=== PATIENT | female | born 1935 | race Caucasian/White ===

== ENCOUNTER → 2016-12-04 | Outpatient (CLI) | payer MEDICARE, OTHER ==
[~2016-12-04] MED LIST: AMLO5TAB2 PO; ASPI-110 PO; ATOR1TAB18 PO; DOCU100C PO; FERR325T PO; HYDR-3516 PO; LORA10 PO; LORA10TA PO; MAGN400T2 PO; METO25TA3 PO; MISC-163; PARO20TA2 PO; SODI1TAB PO; TOLT1TAB17 PO; VALS1TAB64 PO; WHEEMIS3; ZETI10TA5 PO
[2016-12-04 16:37] LABS: ANION GAP 11 MEQ/L (5-15); AST (GOT) 20 U/L (15-37); BICARBONATE 24.4 MEQ/L (21.0-32.0); BLOOD UREA NITROGEN 19 MG/DL (7-18); CHLORIDE 101 MEQ/L (98-107); GLOMERULAR FILTRATION RATE 44 ML/MIN (>89); GLUCOSE,FASTING 97 MG/DL (74-99); POTASSIUM 3.6 MEQ/L (3.5-5.1); SODIUM (NA) 136 MEQ/L (136-145)
[2016-12-04 16:46] LABS: ALKALINE PHOSPHATASE 125 U/L (45-117); ALT (GPT) 18 U/L (10-53); HDL CHOLESTEROL 74.6 MG/DL (40.0-60.0); LDL CHOLESTEROL 64 MG/DL (0-99); TOTAL BILIRUBIN ADULT 0.6 MG/DL (0.2-1.0)
== END ==
LOC: PLAB 12:18
PROVIDERS: ATTEND Family Medicine
DX: E78.2 Mixed hyperlipidemia (principal)
CPT/HCPCS: 36415; 80053; 80061

== ENCOUNTER → 2017-01-09 | Outpatient (CLI) | payer MEDICARE, OTHER ==
[2017-01-09 16:50] LABS: RHEUMATOID FACTOR TRIGGER LESS THAN 10.0 IU/ML (0.0-14.9)
[2017-01-10 14:39] LABS: ANA SCREEN POS (NEG)
== END ==
LOC: CLAB 15:01
PROVIDERS: ATTEND Family Medicine
DX: M12.9 Arthropathy, unspecified (principal); M79.1 Myalgia
CPT/HCPCS: 36415; 84550; 85652; 86038; 86039; 86430

== ENCOUNTER 2017-01-17 12:59 | Observation (INO) | payer MEDICARE, OTHER ==
[~2017-01-17] VITALS: Ht 157.5 cm; Wt 47.5 kg
[~2017-01-17 12:59] MED LIST changes: +BUPIVACAINE HCL PF 0.5% 30 ML VIAL NB ONE; -DOCU100C PO; -FERR325T PO; -HYDR-3516 PO; +LACTATED RINGER'S 1000 ML INJ 1,000 ML IV ONE; -LORA10TA PO; -MISC-163; +PROPOFOL 200 MG/20 ML AMP IV ONE; -WHEEMIS3
[2017-01-17] MEDS ORDERED: FERR325T PO (14:22)
[2017-01-17] MEDS ORDERED: DOCU100C PO (14:22)
[2017-01-17] MEDS ORDERED: LORA10TA PO (14:22)
[2017-01-17] MEDS ORDERED: METO25TA3 PO (14:22)
[2017-01-17 14:49] VITALS: BP 183/80; PULSE 64; RESP 18; TEMP 98.6; O2SAT 96
[2017-01-17] MEDS ORDERED: BUPIVACAINE/EPINEPHRINE 0.25% PF 30 ML VIAL ONE (14:54)
[2017-01-17] MEDS ORDERED: GENTAMICIN SULFATE 80 MG/2 ML VIAL ONE (14:54)
[2017-01-17 15:37] LABS: HEMATOCRIT 36.8 % (35.0-46.0); MEAN CELL VOLUME 84.5 FL (80.0-100.0); MEAN CORPUSCULAR HEMOGLOBIN 28.4 PG (27.0-34.0); MEAN CORPUSCULAR HGB CONC 33.6 % (32.0-36.0); PLATELET COUNT 401 TH/MM3 (150-450); RED BLOOD COUNT 4.36 MIL/MM3 (4.00-5.30); RED CELL DISTRIBUTION WIDTH 15.9 % (11.6-17.2); WHITE BLOOD COUNT 14.5 TH/MM3 (4.0-11.0)
[2017-01-17 15:44] LABS: HEMO FLAGS AUTO DIFF
[2017-01-17] MEDS ORDERED: DEXAMETHASONE SOD PHOS 4 MG/ML VIAL ONE (15:58)
[2017-01-17] MEDS ORDERED: fentaNYL CITRATE 250 MCG/5 ML AMP ONE (15:58)
[2017-01-17] MEDS ORDERED: ONDANSETRON HCL 4 MG/2 ML VIAL ONE (15:58)
[2017-01-17] MEDS ORDERED: MIDAZOLAM HCL 2 MG/2 ML VIAL ONE (15:58)
[2017-01-17] MEDS ORDERED: FAMOTIDINE 20 MG/2 ML VIAL ONE (16:14)
[2017-01-17] MEDS ORDERED: CLINDAMYCIN PHOS 600 MG/4 ML VIAL IM/IV ONE (16:40)
[2017-01-17 16:45] LABS: CRENATED RBCS 1+ (NORMAL); HYPERSEGMENTED POLYS 2+ (NORMAL); KERATOCYTES 1+ (NORMAL); METAMYELOCYTES 1 % (0-1); NEUTROPHIL # MANUAL DIFF 12.2 TH/MM3 (1.8-7.7); OVALOCYTES 1+ (NORMAL); POLYS (SEG NEUTROPHILS) 83 % (16-70); WBC DIFF SAMPLE 100
[2017-01-17 16:46] LABS: PLATELET ESTIMATE SMEAR HIGH (NORMAL); PLATELET MORPHOLOGY NORMAL (NORMAL); SCAN/DIFF FINAL DIFF MANUAL
[2017-01-17] MEDS ORDERED: ACETAMINOPHEN/HYDROcodone 325 MG/5 MG TAB PO PRN ×2 (18:00)
[2017-01-17] MEDS ORDERED: DOCUSATE SODIUM 100 MG CAP PO PRN (18:00)
[2017-01-17] MEDS ORDERED: MORPHINE SULFATE 4 MG/ML INJ IV PUSH PRN (18:00)
[2017-01-17] MEDS ORDERED: KETOROLAC TROMETHAMINE 30 MG/ML (IVP) VIAL IVP ONE (18:00)
[2017-01-17] MEDS ORDERED: SODIUM CHLORIDE 0.9% FLUSH 5 ML FLUSH IVF PRN (18:00)
[2017-01-17] MEDS ORDERED: DO NOT ADM ANY ANTICOAGULANT DRUGS XX PRN (18:05)
--- NOTE | 2017-01-17 18:06 | HHI.FF ---
Face to Face Verification Diagnosis: (1) Status post open reduction with internal fixation of fracture (2) Closed fracture of right patella Physical Therapy Gait training Canvas Knee Splint: At all times Right LE Range of Motion: No ROM Left LE Weight Bearing: WB as tolerated Nursing Nursing: Dressing changes Dressing Changes: Daily dressing change, Coverderm/Primapore Additional Instructions Do not allow right knee to bend. Knee immobilizer is to be replaced on knee after dressing changes. Dressing changes to start after patient is seen in the office. Remove steristrips on postop day 14. I have seen patient Keke Patricia on 01/17/17. My clinical findings support the need for the requested home health care services because: Ltd mobility - disease progression Limited ability to care for self High risk of falls I certify that my clinical findings support that this patient is homebound because: Post-op weakness Unsteady gait/balance Unsafe to leave home unassisted Sina Cross MD (Charles) Jan 17, 2017 18:06
[2017-01-17] MEDS ORDERED: HYDR-3516 PO (18:09)
[2017-01-17] MEDS ORDERED: MISC-163 (18:09)
[2017-01-17] MEDS ORDERED: WHEEMIS3 (18:26)
--- NOTE | 2017-01-17 18:29 | RADRPT ---
EXAM DATE/TIME: 01/17/2017 17:41 [facility] COMPARISON: No previous studies available for comparison. INDICATIONS : ORIF Rt Patella. MEDICAL HISTORY : None. SURGICAL HISTORY : None. ENCOUNTER: Subsequent ACUITY: 1 day PAIN SCORE: Non-responsive. LOCATION: Right patella FINDINGS: Two films from the OR have been obtained. Two screws are seen through the patella. They successfully reduce the mid patellar fracture. The hardware is well placed. CONCLUSION: Successful ORIF. Stanley Kyle MD on January 17, 2017 at 18:22 Board Certified Radiologist. This report was verified electronically.
[2017-01-17 19:38] VITALS: O2SAT 97
[2017-01-17 20:00] VITALS: BP 140/65; PULSE 65; RESP 18; TEMP 97.3; O2SAT 99
[2017-01-17] MEDS ORDERED: CLINDAMYCIN INJ 600 MG in SODIUM CHLORIDE 0.9% INJ 100 ML IV ONE (20:00)
[2017-01-17] MEDS: MAGNESIUM OXIDE 400 MG TAB PO SCH (21:00)
[2017-01-17] MEDS ORDERED: ATORVASTATIN 80 MG TAB PO SCH (21:00)
[2017-01-17] MEDS: METOPROLOL TARTRATE 25 MG TAB PO SCH (21:00)
[2017-01-17] MEDS: SODIUM CHLORIDE 0.9% FLUSH 5 ML FLUSH IVF SCH (21:00)
[2017-01-18 00:24] VITALS: BP 112/50; PULSE 68; RESP 18; TEMP 96.5; O2SAT 98
[2017-01-18 05:12] VITALS: BP 111/71; PULSE 66; RESP 18; TEMP 97.8; O2SAT 97
[2017-01-18 07:33] VITALS: BP 122/58; PULSE 67; RESP 16; TEMP 97; O2SAT 98
[2017-01-18] MEDS ORDERED: PARoxetine HCL 20 MG TAB PO SCH (09:00)
[2017-01-18] MEDS ORDERED: LORATADINE 10 MG TAB PO SCH (09:00)
[2017-01-18] MEDS ORDERED: FERROUS SULFATE 325 MG (65 MG ELEMENTAL IRON) TAB PO SCH (09:00)
[2017-01-18] MEDS ORDERED: VALSARTAN 80 MG TAB PO SCH (09:00)
[2017-01-18] MEDS ORDERED: SODIUM CHLORIDE 1 GRAM TAB PO SCH (09:00)
[2017-01-18] MEDS ORDERED: ASPIRIN EC 81 MG TABEC PO SCH (09:00)
[2017-01-18] MEDS ORDERED: amLODIPine BESYLATE 5 MG TAB PO SCH (09:00)
[2017-01-18] MEDS ORDERED: EZETIMIBE 10 MG TAB PO SCH (09:00)
[2017-01-18] MEDS: SODIUM CHLORIDE 0.9% FLUSH 5 ML FLUSH IVF SCH (09:29)
[2017-01-18] MEDS: METOPROLOL TARTRATE 25 MG TAB PO SCH (09:31)
[2017-01-18] MEDS: MAGNESIUM OXIDE 400 MG TAB PO SCH (09:33)
--- NOTE | 2017-01-18 10:58 | PD.ORT.PN ---
Subjective Post Op Day #: 1 Subjective Remarks Patient seen for Dr. Cross- status post ORIF right patella. Patient has been walking with walker and able to move about in bed and lift left leg without difficulty. Objective Vitals Vital Signs Date Time Temp Pulse Resp B/P Pulse Ox O2 Delivery O2 Flow Rate FiO2 01/18/17 07:33 97.0 67 16 122/58 98 01/18/17 05:12 97.8 66 18 111/71 97 01/18/17 00:24 96.5 68 18 112/50 98 01/17/17 20:00 97.3 65 18 140/65 99 01/17/17 19:38 97 Nasal Cannula 2.00 01/17/17 18:30 68 20 131/76 97 Nasal Cannula 2 01/17/17 18:15 72 15 123/83 97 Nasal Cannula 2 01/17/17 18:04 98.7 72 14 148/62 95 Nasal Cannula 4 01/17/17 14:49 98.6 64 18 183/80 96 I/O 01/17/17 01/17/17 01/17/17 01/18/17 01/18/17 01/18/17 07:00 15:00 23:00 07:00 15:00 23:00 Intake Total 1620 ml 480 ml Output Total 525 ml 700 ml Balance 1095 ml -220 ml Intake Oral 520 ml 480 ml Other 1100 ml Output Urine Total 500 ml 700 ml Estimated Blood Loss 25 ml # Bowel Movements 0 0 Result Diagram: 01/17/17 1517 Imaging Last Impressions Knee X-Ray 01/17/17 0000 Signed Impressions: Service Date/Time: Tuesday, January 17, 2017 17:41 - CONCLUSION: Successful ORIF. Stanley Kyle MD Objective Remarks Patient in canvas knee splint- opened and adjusted today. Dressing dry and intact. Able to lift thigh in splint. Moving toes well and neuro exam distally is normal. Assessment & Plan Assessment and Plan Patient is doing very well. She plans to go home and she and are planning discharge later today. She has follow up with Dr. Cross. Chintan Trujillo MD Jan 18, 2017 10:58
[2017-01-18 11:16] VITALS: BP 128/62; PULSE 70; RESP 16; TEMP 97.9; O2SAT 95
--- NOTE | 2017-01-18 19:05 | MP ---
cc: Dre KERR. DATE OF SURGERY 01/17/2017 PREOPERATIVE DIAGNOSIS Acute closed transverse fracture, displaced, right patella. POSTOPERATIVE DIAGNOSIS Acute closed transverse fracture, displaced, right patella. OPERATION PERFORMED Open reduction internal fixation right patella fracture. SURGEON Casey Kerr MD ANESTHESIA General by LMA with supplemental femoral nerve block regional INDICATIONS AND FINDINGS This 81-year-old woman had an accidental fall directly onto her patella. She was seen in my office and admitted for open reduction and internal fixation. Physical findings showed a displaced fracture palpable in the patella with a large effusion. The skin was intact. X-rays showed a transverse fracture of the patella with some displacement. Operative findings were consistent with the radiographic findings. PROCEDURE IN DETAIL The patient had a femoral nerve block. She was brought to the operating room and a general anesthetic was administered. She was placed in the supine position on the operating table with a small bolster under the right hip. Right hip was then prepped with alcohol, Hibiclens and Chloraprep and draped in the usual manner with the knee draped free. She received prophylactic antibiotics in the form of clindamycin. An appropriate time-out procedure was carried out. An anterior incision was then made from about 1 cm proximal to the mid portion of the patella down to about 1 cm distal to the patella. The incision was deepened through the subcutaneous tissues down to the patella. The patella fracture was identified. This was opened and irrigated. The blood was irrigated from the joint. A reduction was then carried out and held with reduction clamps. C-arm fluoroscopy verified anatomic reduction. Two pins were then drilled from proximal to distal across the fracture site. C-arm fluoroscopy verified good position of these pins. These were then sized and appropriate size 4.0 mm cannulated screws were then placed over the pins and screwed into place. This showed anatomic reduction. #5 Tycron was then passed above these and through the quadriceps tendon in [id number] fashion down to the patella tendon in [id number] fashion. This was tightened tightly and tied. A secondary suture of the same material was then carried as a cerclage somewhat lateral to this. This was also tied tightly. C-arm fluoroscopy verified persistence of the anatomic reduction. The capsular structures were repaired with 0 Vicryl interrupted [id number] sutures. The subcutaneous tissues were closed with 2-0 Vicryl interrupted simple sutures with buried knots. The skin was closed with continuous subcuticular closure of 4-0 Monocryl. The wound was dressed with Steri-Strips followed by dry dressing, sterile Sof-Rol, Bridger bandage and a knee immobilizer. The patient was transferred from the operating room to the recovery room in satisfactory condition having tolerated the procedure well. Counts were correct. Specimens none. Estimated blood loss (primarily from the intra-articular effusion) approximately 100 mL. MD GUILLERMINA Reza/ /6:13 PM /6:59 PM
== END 2017-01-18 16:20 | disposition home health service (06) ==
LOC: HSDC 12:59 → HSDI 18:00 → N06B 18:55
PROVIDERS: ADMIT Orthopaedic Surgery; ATTEND Orthopaedic Surgery
DX: S82.034A Nondisplaced transverse fracture of right patella, initial encounter for closed fracture (principal); I10 Essential (primary) hypertension; E78.5 Hyperlipidemia, unspecified; J44.9 Chronic obstructive pulmonary disease, unspecified; W19.XXXA Unspecified fall, initial encounter
CPT/HCPCS: 01392; 27524; 64447; 73560; 76000; 85007; 85027; 97161; C1713; G0378; G8987; G8988; J1100; J1580; J2250; J2405; J3010; J7120; L1830

== ENCOUNTER → 2017-06-11 | Outpatient (CLI) | payer MEDICARE, OTHER ==
[~2017-06-11] MED LIST changes: -BUPIVACAINE HCL PF 0.5% 30 ML VIAL NB ONE; +DOCU100C PO; +FERR325T PO; +HYDR-3516 PO; -LACTATED RINGER'S 1000 ML INJ 1,000 ML IV ONE; -LORA10 PO; +LORA10TA PO; +MISC-163; -PROPOFOL 200 MG/20 ML AMP IV ONE; -TOLT1TAB17 PO; +WHEEMIS3
--- NOTE | 2017-06-17 09:28 | RSPPFT ---
DATE OF PROCEDURE: 06/11/17 COMMENTS: Spirometry with FVC of 2.0 predicted 2.4, FEV1 of 1.4 predicted 1.7, FEV1/FVC ratio 68% predicted 81%. No significant changes noted post-bronchodilator acutely. Lung volumes are basically within the predicted range. DLCO is 42% of predicted. IMPRESSION: On the basis of the above, patient has an obstructive lung defect with no response to acutely inhaled bronchodilator. DLCO is decreased.
== END ==
LOC: HRSP 13:07
PROVIDERS: ATTEND Internal Medicine Pulmonary Disease
DX: J44.9 Chronic obstructive pulmonary disease, unspecified (principal)
CPT/HCPCS: 94060; 94620; 94726; 94729

== ENCOUNTER → 2017-08-06 | Outpatient (CLI) | payer MEDICARE, OTHER ==
[~2017-08-06] MED LIST changes: +CELE1CAP6 PO; +CRANCAP2 PO; +FERR325T8 PO; +PREV30CA11 PO; +REST15CA PO; +TOLT1CAP4 PO
[2017-08-06 13:35] LABS: AUTOMATED NEUTROPHIL # 4.9 TH/MM3 (1.8-7.7); BASOPHIL % 0.5 % (0.0-2.0); EOSINOPHIL % 0.2 % (0.0-4.0); HEMATOCRIT 40.7 % (35.0-46.0); HEMO FLAGS DIFF FINAL; LYMPH % 28.2 % (9.0-44.0); LYMPHOCYTE # 2.2 TH/MM3 (1.0-4.8); MEAN CELL VOLUME 91.6 FL (80.0-100.0); MEAN CORPUSCULAR HEMOGLOBIN 30.4 PG (27.0-34.0); MEAN CORPUSCULAR HGB CONC 33.2 % (32.0-36.0); MONO % 7.1 % (0.0-8.0); PLATELET COUNT 217 TH/MM3 (150-450); RED BLOOD COUNT 4.45 MIL/MM3 (4.00-5.30); RED CELL DISTRIBUTION WIDTH 15.4 % (11.6-17.2); WHITE BLOOD COUNT 7.7 TH/MM3 (4.0-11.0)
[2017-08-06 13:38] LABS: BLOOD, URINE NEG (NEG); COMMENT (UR) CULT NOT INDICATED; CULTURE IF INDICATED CULT NOT INDICATED; GLUCOSE,URINE NEG (NEG); KETONE, URINE NEG (NEG); NITRITE,URINE NEG (NEG); PH, URINE 7.5 (5.0-8.5); SQUAMOUS EPITHELIAL CELL URINE <1 /hpf (0-5); URINE COLOR LIGHT-YELLOW (YELLW/STRAW)
[2017-08-06 13:48] LABS: APTT (PATIENT) 25.5 SEC (24.3-30.1); INTERNATIONAL NORMALIZED RATIO 0.9 RATIO
[2017-08-06 14:00] LABS: ANION GAP 10 MEQ/L (5-15); AST (GOT) 24 U/L (15-37); BICARBONATE 26.2 MEQ/L (21.0-32.0); BLOOD UREA NITROGEN 23 MG/DL (7-18); CHLORIDE 103 MEQ/L (98-107); GLOMERULAR FILTRATION RATE 46 ML/MIN (>89); GLUCOSE,FASTING 107 MG/DL (74-99); POTASSIUM 4.2 MEQ/L (3.5-5.1); SODIUM (NA) 139 MEQ/L (136-145)
[2017-08-06 14:03] LABS: ALKALINE PHOSPHATASE 124 U/L (45-117); ALT (GPT) 20 U/L (10-53); TOTAL BILIRUBIN ADULT 0.7 MG/DL (0.2-1.0)
--- NOTE | 2017-08-06 16:29 | RADRPT ---
EXAM DATE/TIME: 08/06/2017 13:31 [facility] COMPARISON: No previous studies available for comparison. INDICATIONS : Evaluate for pneumonia, pneumothorax, or communicable disease. MEDICAL HISTORY : Chronic obstructive pulmonary disease. Hypercholesterolemia. Hypertension. Emphysema. Irritable bowel syndrome. Depression. Anxiety. Measles. SURGICAL HISTORY : Tonsillectomy. Appendectomy. Tubal ligation. Bilateral eye surgery. Adenoidectomy. Bilateral carpal t unnel surgery. Left foot neuroma removed. ENCOUNTER: Initial ACUITY: 1 day PAIN SCORE: 0/10 LOCATION: Chest FINDINGS: The heart and mediastinal structures are normal. The pulmonary vascularity pattern is normal. The l ungs are clear. Scattered granulomatous changes are noted predominantly on the right. Degenerative changes and scoliosis of the thoracolumbar spine are noted. CONCLUSION: 1. No acute cardiopulmonary disease. 2. Scattered granulomatous changes predominantly on the right. 3. Degenerative changes and scoliosis of the thoracolumbar spine. Eh Sharp MD on August 06, 2017 at 16:21 Board Certified Radiologist. This report was verified electronically.
--- NOTE | 2017-08-07 13:01 | EKG ---
Date Performed: 08/06/2017 Time Performed: 11:59:11 PTAGE: 81 years EKG: Sinus rhythm NORMAL ECG NO PREVIOUS TRACING DOCTOR: Brigido Santiago Interpretating Date/Time 08/07/2017 12:51:57
== END ==
LOC: CPRE 11:05
PROVIDERS: ATTEND Colon & Rectal Surgery
DX: Z01.810 Encounter for preprocedural cardiovascular examination (principal); Z01.812 Encounter for preprocedural laboratory examination; K62.3 Rectal prolapse; Z79.01 Long term (current) use of anticoagulants
CPT/HCPCS: 36415; 71020; 80053; 81001; 85025; 85610; 85730; 93005

== ENCOUNTER 2017-08-13 13:00 | Inpatient (IN) | payer MEDICARE, OTHER ==
[~2017-08-13] VITALS: Ht 158.8 cm; Wt 52.0 kg
[~2017-08-13 13:00] MED LIST changes: -FERR325T PO; -HYDR-3516 PO; +LACTATED RINGER'S 1000 ML INJ 1,000 ML IV ONE; -LORA10TA PO; +MIDAZOLAM HCL 2 MG/2 ML VIAL IV ONE; -MISC-163; +MORPHINE SULFATE 4 MG/ML INJ IV ONE; +PHENYLEPHRINE HCL 10 MG/ML VIAL IV ONE; +PROPOFOL 200 MG/20 ML AMP IV ONE; -WHEEMIS3; +ePHEDrine/NS 25 MG/5 ML SYR IV ONE
[2017-08-13] MEDS ORDERED: SODIUM CHLORID 0.9% 500 ML IV PRN (14:00)
[2017-08-13] MEDS ORDERED: LACTATED RINGER'S 1000 ML IV PRN (14:00)
[2017-08-13] MEDS ORDERED: CHLORHEXIDINE GLUCONATE 2 % 1 PACK (2 CLOTHS) TOPICAL PRN (14:00)
[2017-08-13] MEDS ORDERED: ceFAZolin 1,000 MG/NS 100 ML IV SCH ×2 (14:00)
[2017-08-13] MEDS ORDERED: POVIDONE IODINE 5% (ANTISEPSIS KIT) 4 APPLICATIONS EACH NARE PRN (14:00)
[2017-08-13] MEDS ORDERED: METOPROLOL TARTRATE 25 MG TAB PO PRN (14:00)
[2017-08-13] MEDS ORDERED: INSULIN HUMAN REGULAR 1,000 UNITS/10 ML VIAL SQ PRN (14:00)
[2017-08-13] MEDS ORDERED: DEXT 5%-NACL 0.9% 1000 ML INJ 1,000 ML IV SCH (14:00)
[2017-08-13] MEDS ORDERED: ALVIMOPAN 12 MG CAPSULE - On Call PO SCH (14:00)
[2017-08-13] MEDS ORDERED: METRONIDAZOLE 500 MG/100 ML ISONTONIC SOLN IV SCH (14:15)
[2017-08-13] MEDS ORDERED: BUPIVACAINE/EPINEPHRINE 0.5% 50 ML VIAL ONE (16:14)
[2017-08-13] MEDS ORDERED: FAMOTIDINE 20 MG/2 ML VIAL ONE (16:18)
[2017-08-13] MEDS ORDERED: ACETAMINOPHEN 1000 MG/100 ML 100 ML IV ONE (16:18)
--- NOTE | 2017-08-13 16:22 | PD.HP.UP ---
H&P Update Note The Pre-Admit History and Physical Examination regarding the above named patient was reviewed (including, but not limited to, vital signs, heart, lungs, co-morbid conditions), and upon re-examination it is noted that: the patient's condition has not significantly changed since the last examination. Og Fuentes MD Aug 13, 2017 16:22
[2017-08-13] MEDS ORDERED: SILVER SULFADIAZINE/LIDOCAINE CREAM 60 GM JAR ONE (16:30)
[2017-08-13] MEDS ORDERED: SUGAMMADEX SODIUM 200 MG/2 ML VIAL IV PUSH ONE ×2 (17:35)
[2017-08-13] MEDS ORDERED: POTASSIUM CHLOR 40 MEQ PREMIX 100 ML IV PRN (18:00)
[2017-08-13] MEDS ORDERED: Post-op Orders (for Pharmacy) MISC XX ONE (18:00)
[2017-08-13] MEDS ORDERED: KETOROLAC TROMETHAMINE 30 MG/ML (IVP) VIAL IVP PRN (18:00)
[2017-08-13] MEDS ORDERED: ENALAPRILAT 1.25 MG/ML VIAL IV PRN (18:00)
[2017-08-13] MEDS ORDERED: SODIUM CHLORIDE 0.9% FLUSH 5 ML FLUSH IVF PRN (18:00)
[2017-08-13] MEDS ORDERED: ACETAMINOPHEN 325 MG TAB PO PRN (18:00)
[2017-08-13] MEDS ORDERED: BENZOCAINE 6 MG/MENTHOL 10 MG LOZENGE BUCCAL PRN (18:00)
[2017-08-13] MEDS ORDERED: ENALAPRILAT 2.5 MG/2 ML VIAL IV PRN (18:00)
[2017-08-13] MEDS ORDERED: NALOXONE HCL 0.4 MG/ML AMP IV PRN (18:00)
[2017-08-13] MEDS ORDERED: MORPHINE SULFATE 30 MG/30 ML PCA IV SCH (18:00)
[2017-08-13] MEDS ORDERED: ONDANSETRON HCL 4 MG/2 ML VIAL IV PRN (18:00)
[2017-08-13] MEDS ORDERED: POTASSIUM CHLOR 20 MEQ PREMIX 100 ML IV PRN (18:00)
[2017-08-13] MEDS ORDERED: ACETAMINOPHEN/HYDROcodone 325 MG/5 MG TAB PO PRN ×2 (18:00)
[2017-08-13] MEDS ORDERED: DO NOT ADM ANY ANTICOAGULANT DRUGS PRN (18:05)
[2017-08-13] MEDS ORDERED: *ENALAPRILAT 1.25 MG/ML VIAL PERIprocedural Use ONLY ONE (18:38)
[2017-08-13] MEDS: D5-NS + KCL 20 MEQ INJ 1,000 ML IV SCH (18:46)
[2017-08-13 20:00] VITALS: BP 158/77; PULSE 60; RESP 16; TEMP 98.4; O2SAT 94
[2017-08-13 21:00] VITALS: PULSE 62
[2017-08-13] MEDS: SODIUM CHLORIDE 0.9% FLUSH 5 ML FLUSH IVF SCH (21:00)
[2017-08-13 22:00] VITALS: PULSE 70
[2017-08-13] MEDS: ATORVASTATIN 80 MG TAB PO SCH (22:15)
[2017-08-13] MEDS: metroNIDAZOLE 500 MG INJ 100 ML IV SCH (22:15)
[2017-08-13] MEDS: METOCLOPRAMIDE HCL 10 MG/2 ML VIAL IVS SCH (22:15)
[2017-08-13] MEDS: METOPROLOL TARTRATE 25 MG TAB PO SCH (22:15)
[2017-08-13 23:00] VITALS: PULSE 64
[2017-08-14] VITALS (28 sets, daily range): BP systolic 136–164; BP diastolic 73–90; PULSE 62–94; RESP 16–20; TEMP 97.9–98.9; O2SAT 90–98
[2017-08-14] MEDS: D5-NS + KCL 20 MEQ INJ 1,000 ML IV SCH ×4 (01:34→22:19)
[2017-08-14] MEDS: metroNIDAZOLE 500 MG INJ 100 ML IV SCH ×2 (06:16→12:44)
[2017-08-14] MEDS ORDERED: ALVIMOPAN 12 MG CAPSULE PO SCH (09:00)
[2017-08-14] MEDS: SODIUM CHLORIDE 0.9% FLUSH 5 ML FLUSH IVF SCH ×2 (09:00→20:16)
[2017-08-14] MEDS: PANTOPRAZOLE SOD 40 MG DELAYED RELEASE TAB PO SCH (09:01)
[2017-08-14] MEDS: METOPROLOL TARTRATE 25 MG TAB PO SCH ×2 (09:01→20:16)
[2017-08-14] MEDS: amLODIPine BESYLATE 5 MG TAB PO SCH (09:01)
[2017-08-14] MEDS: VALSARTAN 80 MG TAB PO SCH (09:01)
[2017-08-14] MEDS: ALVIMOPAN 12 MG CAPSULE - Post-op dosing PO SCH ×2 (09:01→20:16)
[2017-08-14] MEDS: PARoxetine HCL 20 MG TAB PO SCH (09:01)
[2017-08-14] MEDS: METOCLOPRAMIDE HCL 10 MG/2 ML VIAL IVS SCH ×2 (09:02→20:16)
[2017-08-14] MEDS: PANTOPRAZOLE SODIUM 40 MG VIAL IVP SCH (09:02)
--- NOTE | 2017-08-14 10:58 | HHI.PR ---
Subjective Remarks C/R Surg #1 afebrile, VSS UO good Objective - Vital Signs Date Time Temp Pulse Resp B/P (MAP) Pulse Ox O2 Delivery O2 Flow Rate FiO2 08/14/17 08:30 80 20 164/90 (114) 93 08/14/17 04:00 97.9 08/14/17 04:00 Nasal Cannula 2.50 Other Results PE alert Abd - soft, wound dry, mild tympany A/P Assessment and Plan Imp: stable post-op OOB decr IVF tx to floor Og Fuentes MD Aug 14, 2017 10:58
[2017-08-14] MEDS: TOLTERODINE TARTRATE 2 MG CAP LA PO SCH (11:21)
[2017-08-14] MEDS: PCA - TOTAL MG MORPHINE DELIVERED PER SHIFT SCH ×2 (18:00→22:00)
[2017-08-14] MEDS: ATORVASTATIN 80 MG TAB PO SCH (20:16)
[2017-08-15] VITALS (25 sets, daily range): BP systolic 122–159; BP diastolic 74–89; PULSE 74–107; RESP 16–20; TEMP 98–99.6; O2SAT 91–96
[2017-08-15] MEDS: D5-NS + KCL 20 MEQ INJ 1,000 ML IV SCH ×2 (04:55→05:31)
[2017-08-15] MEDS ORDERED: FUROSEMIDE 20 MG/2 ML VIAL IV PUSH ONE (05:30)
[2017-08-15] MEDS: PCA - TOTAL MG MORPHINE DELIVERED PER SHIFT SCH (05:38)
[2017-08-15] MEDS: PANTOPRAZOLE SODIUM 40 MG VIAL IVP SCH (09:00)
[2017-08-15] MEDS: SODIUM CHLORIDE 0.9% FLUSH 5 ML FLUSH IVF SCH ×2 (09:00→21:00)
[2017-08-15] MEDS ORDERED: ALBUTEROL SULFATE 90 MCG/ACT HFA 18 GM INHALER INH PRN (09:00)
[2017-08-15] MEDS ORDERED: ACETAMINOPHEN 1000 MG/100 ML VIAL IV ONE (09:15)
[2017-08-15] MEDS: amLODIPine BESYLATE 5 MG TAB PO SCH (09:32)
[2017-08-15] MEDS: METOPROLOL TARTRATE 25 MG TAB PO SCH ×2 (09:32→22:11)
[2017-08-15] MEDS: VALSARTAN 80 MG TAB PO SCH (09:32)
[2017-08-15] MEDS: ALVIMOPAN 12 MG CAPSULE - Post-op dosing PO SCH ×2 (09:32→22:09)
[2017-08-15] MEDS: PANTOPRAZOLE SOD 40 MG DELAYED RELEASE TAB PO SCH (09:33)
[2017-08-15] MEDS: PARoxetine HCL 20 MG TAB PO SCH (09:33)
[2017-08-15] MEDS: TOLTERODINE TARTRATE 2 MG CAP LA PO SCH (09:33)
[2017-08-15] MEDS: METOCLOPRAMIDE HCL 10 MG/2 ML VIAL IVS SCH ×2 (09:35→22:10)
[2017-08-15] MEDS: FUROSEMIDE 20 MG/2 ML VIAL IV PUSH SCH ×2 (09:36→22:11)
--- NOTE | 2017-08-15 10:13 | HHI.PR ---
Subjective Remarks C/R Surg #2 afebrile, VSS UO good mild SOB, decr O2 sat Objective - Vital Signs Date Time Temp Pulse Resp B/P (MAP) Pulse Ox O2 Delivery O2 Flow Rate FiO2 08/15/17 07:24 98.6 105 18 157/89 (111) 96 08/15/17 06:30 Nasal Cannula 4.00 Objective Remarks PE alert Abd - soft, wound dry, no flatus A/P Assessment and Plan Imp: OOB decr IVF, lasix tx to floor start PO Og Fuentes MD Aug 15, 2017 10:13
[2017-08-15 12:50] LABS: AUTOMATED NEUTROPHIL # 9.2 TH/MM3 (1.8-7.7); BASOPHIL % 0.3 % (0.0-2.0); EOSINOPHIL % 0.1 % (0.0-4.0); HEMATOCRIT 38.3 % (35.0-46.0); HEMO FLAGS DIFF FINAL; LYMPH % 11.7 % (9.0-44.0); LYMPHOCYTE # 1.3 TH/MM3 (1.0-4.8); MEAN CELL VOLUME 93.8 FL (80.0-100.0); NEUT % 82.9 % (16.0-70.0); PLATELET COUNT 200 TH/MM3 (150-450); RED BLOOD COUNT 4.08 MIL/MM3 (4.00-5.30); RED CELL DISTRIBUTION WIDTH 16.4 % (11.6-17.2); WHITE BLOOD COUNT 11.1 TH/MM3 (4.0-11.0)
[2017-08-15] MEDS: ATORVASTATIN 80 MG TAB PO SCH (22:11)
--- NOTE | 2017-08-16 07:08 | MP ---
cc: MONROE PARRA M.D. DATE OF SURGERY: 08/13/2017 PREOPERATIVE DIAGNOSIS: Rectal thickness, rectal prolapse. OPERATION: Exploratory laparotomy with rectopexy. POSTOPERATIVE DIAGNOSIS: Exploratory laparotomy with rectopexy. SURGEON Dr. Parra PATIENT SCHEDULER Dr. Lion Santamaria PROCEDURE The patient was placed in the supine position. After adequate general anesthesia her legs were placed in [place] stirrups and supported appropriately. The abdomen and perineum were then prepped with Betadine solution and draped in the usual sterile fashion. With Dr. Santamaria assistance the abdomen was opened through a lower midline incision. Exploration revealed a somewhat redundant sigmoid colon. Palpation revealed no masses. The proximal colon was palpated carefully and no other signs of masses or obstruction were noted. The small bowel was run from ligament of Treitz down to ileocecal valve and felt to be normal. The liver had no palpable masses. The stomach and duodenum were normal. The uterus and ovaries were appropriate for the patient's age. The great vessels were of normal caliber and fairly soft to palpation. First the sigmoid colon was mobilized medially by dividing along the left white line of Toldt. The left ureter was identified and carefully preserved. The right retroperitoneal space was then opened and the bowel dissected off the presacral fascia down toward the pelvic floor for full rectal mobilization the cul-de-sac was also opened and the bowel mobilized up out of the pelvis. After full mobilization the rectopexy was performed using zero Prolene sutures to suture the peritoneum around the rectosigmoid to the presacral fascia fairly securely two vertical mattress sutures on each side. After rectopexy there did appear to be adequate suspension of the rectum. Hemostasis appeared to be more than adequate. The midline incision was then closed anatomically using a running #1 PDS suture to reapproximate the midline fascia. The Subcu tissues irrigated copiously and the skin closed with a subcuticular Vicryl suture. Wound area washed with normal saline and dried, sterile dressing of Telfa and gauze applied. The patient tolerated the procedure quite well and was brought to recovery room in stable condition. Sponge and needle counts were correct at the end of the procedure. MD MARY Senior/pramod /10:26 AM /6:57 AM
[2017-08-16 08:00] VITALS: BP 155/72; PULSE 104; RESP 16; TEMP 99.2; O2SAT 91
[2017-08-16] MEDS: PANTOPRAZOLE SOD 40 MG DELAYED RELEASE TAB PO SCH (08:28)
[2017-08-16] MEDS: PANTOPRAZOLE SODIUM 40 MG VIAL IVP SCH (08:28)
[2017-08-16] MEDS: FUROSEMIDE 20 MG/2 ML VIAL IV PUSH SCH ×2 (08:29→22:20)
[2017-08-16] MEDS: VALSARTAN 80 MG TAB PO SCH (08:29)
[2017-08-16] MEDS: METOPROLOL TARTRATE 25 MG TAB PO SCH ×2 (08:29→22:20)
[2017-08-16] MEDS: TOLTERODINE TARTRATE 2 MG CAP LA PO SCH (08:29)
[2017-08-16] MEDS: ALVIMOPAN 12 MG CAPSULE - Post-op dosing PO SCH ×2 (08:29→21:00)
[2017-08-16] MEDS: amLODIPine BESYLATE 5 MG TAB PO SCH (08:29)
[2017-08-16] MEDS: PARoxetine HCL 20 MG TAB PO SCH (08:29)
[2017-08-16] MEDS: SODIUM CHLORIDE 0.9% FLUSH 5 ML FLUSH IVF SCH ×2 (08:30→21:00)
[2017-08-16] MEDS: METOCLOPRAMIDE HCL 10 MG/2 ML VIAL IVS SCH ×2 (08:30→21:00)
--- NOTE | 2017-08-16 10:44 | HHI.PR ---
Subjective Remarks No N or V. Hungry. No BMs Objective Vital Signs Date Time Temp Pulse Resp B/P (MAP) Pulse Ox O2 Delivery O2 Flow Rate FiO2 08/16/17 08:00 99.2 104 16 155/72 (99) 91 08/15/17 23:30 Room Air 08/15/17 23:04 99.6 92 17 159/76 (103) 94 08/15/17 20:38 93 Nasal Cannula 4.00 08/15/17 20:00 98.2 98 20 159/82 (107) 91 08/15/17 19:00 91 Room Air 08/15/17 18:00 95 08/15/17 17:00 88 08/15/17 16:00 85 08/15/17 15:18 93 Nasal Cannula 1.50 08/15/17 15:12 98.3 79 18 146/74 (98) 96 08/15/17 15:00 84 08/15/17 14:00 80 08/15/17 13:00 82 08/15/17 12:00 74 08/15/17 11:30 96 Nasal Cannula 3.00 08/15/17 11:15 98.5 86 16 122/87 (99) 96 08/15/17 11:00 92 I/O 08/15/17 08/15/17 08/15/17 08/16/17 08/16/17 08/16/17 07:00 15:00 23:00 07:00 15:00 23:00 Intake Total 1528 ml 720 ml 962 ml Output Total 550 ml 1700 ml Balance 978 ml -980 ml 962 ml Intake Oral 50 ml 720 ml 480 ml IV Total 1478 ml 482 ml Output Urine Total 550 ml 1700 ml # Voids 2 # Bowel Movements 0 0 Result Diagram: 08/15/17 1152 08/15/17 1152 Objective Remarks VS-S Abd: soft,wound clean, binder helping with pain. Assessment and Plan Assessment and Plan Stable POD#3 Advance diet and ambulate. Stanley Santamaria MD Aug 16, 2017 10:44
[2017-08-16 12:00] VITALS: BP 161/71; PULSE 82; RESP 17; TEMP 98.4; O2SAT 91
[2017-08-16 12:37] VITALS: O2SAT 92
[2017-08-16 16:00] VITALS: BP 138/66; PULSE 77; RESP 15; TEMP 99.1; O2SAT 94
[2017-08-16 17:50] VITALS: O2SAT 94
[2017-08-16] MEDS: D5-NS + KCL 20 MEQ INJ 1,000 ML IV SCH (17:55)
[2017-08-16 20:00] VITALS: BP 169/90; PULSE 60; RESP 22; TEMP 97.1; O2SAT 94
[2017-08-16] MEDS: ATORVASTATIN 80 MG TAB PO SCH (22:20)
[2017-08-17] VITALS (9 sets, daily range): BP systolic 113–130; BP diastolic 56–85; PULSE 86–148; RESP 15–22; TEMP 96.7–99.9; O2SAT 93–94
[2017-08-17] MEDS: ALVIMOPAN 12 MG CAPSULE - Post-op dosing PO SCH ×2 (08:37→19:41)
[2017-08-17] MEDS: TOLTERODINE TARTRATE 2 MG CAP LA PO SCH (08:37)
[2017-08-17] MEDS: PARoxetine HCL 20 MG TAB PO SCH (08:37)
[2017-08-17] MEDS: VALSARTAN 80 MG TAB PO SCH (08:37)
[2017-08-17] MEDS: amLODIPine BESYLATE 5 MG TAB PO SCH (08:37)
[2017-08-17] MEDS: METOPROLOL TARTRATE 25 MG TAB PO SCH ×2 (08:37→19:41)
[2017-08-17] MEDS: PANTOPRAZOLE SOD 40 MG DELAYED RELEASE TAB PO SCH (08:37)
[2017-08-17] MEDS: FUROSEMIDE 20 MG/2 ML VIAL IV PUSH SCH ×2 (08:38→22:26)
[2017-08-17] MEDS: METOCLOPRAMIDE HCL 10 MG/2 ML VIAL IVS SCH ×2 (08:38→19:45)
[2017-08-17] MEDS: PANTOPRAZOLE SODIUM 40 MG VIAL IVP SCH (08:38)
[2017-08-17] MEDS: SODIUM CHLORIDE 0.9% FLUSH 5 ML FLUSH IVF SCH ×2 (08:38→19:45)
--- NOTE | 2017-08-17 11:05 | HHI.PR ---
Subjective Remarks No N or V. Hungry. No BMs. Tolerating diet Objective Vital Signs Date Time Temp Pulse Resp B/P (MAP) Pulse Ox O2 Delivery O2 Flow Rate FiO2 08/17/17 08:00 99.7 110 15 120/56 (77) 93 08/17/17 07:51 94 Nasal Cannula 4.00 08/17/17 00:00 99.9 102 22 113/75 (88) 93 08/16/17 20:00 97.1 60 22 169/90 (116) 94 08/16/17 17:50 94 Nasal Cannula 4.00 08/16/17 16:00 99.1 77 15 138/66 (90) 94 08/16/17 12:37 92 Nasal Cannula 4.00 08/16/17 12:00 98.4 82 17 161/71 (101) 91 I/O 08/16/17 08/16/17 08/16/17 08/17/17 08/17/17 08/17/17 07:00 15:00 23:00 07:00 15:00 23:00 Intake Total 962 ml 720 ml 240 ml Balance 962 ml 720 ml 240 ml Intake Oral 480 ml 720 ml 240 ml IV Total 482 ml # Voids 2 4 2 # Bowel Movements 0 0 0 Result Diagram: 08/15/17 1152 08/15/17 1152 Objective Remarks VS-S Abd: soft,wound clean, binder helping with pain. Assessment and Plan Assessment and Plan Stable POD#4 Advance diet and ambulate. Await BM. Needs more ambulation Stanley Santamaria MD Aug 17, 2017 11:05
[2017-08-17] MEDS: D5-NS + KCL 20 MEQ INJ 1,000 ML IV SCH (16:00)
[2017-08-17] MEDS: ATORVASTATIN 80 MG TAB PO SCH (19:41)
[2017-08-18] VITALS: BP 120/76; PULSE 148; RESP 22; TEMP 97.7; O2SAT 94
[2017-08-18 08:00] VITALS: BP 150/72; PULSE 89; RESP 18; TEMP 99.1; O2SAT 92
[2017-08-18] MEDS: VALSARTAN 80 MG TAB PO SCH (08:53)
[2017-08-18] MEDS: ALVIMOPAN 12 MG CAPSULE - Post-op dosing PO SCH (08:53)
[2017-08-18] MEDS: PARoxetine HCL 20 MG TAB PO SCH (08:53)
[2017-08-18] MEDS: PANTOPRAZOLE SOD 40 MG DELAYED RELEASE TAB PO SCH (08:54)
[2017-08-18] MEDS: amLODIPine BESYLATE 5 MG TAB PO SCH (08:54)
[2017-08-18] MEDS: TOLTERODINE TARTRATE 2 MG CAP LA PO SCH (08:54)
[2017-08-18] MEDS: METOPROLOL TARTRATE 25 MG TAB PO SCH (08:54)
[2017-08-18] MEDS: PANTOPRAZOLE SODIUM 40 MG VIAL IVP SCH (08:54)
[2017-08-18] MEDS: SODIUM CHLORIDE 0.9% FLUSH 5 ML FLUSH IVF SCH (09:00)
[2017-08-18] MEDS: METOCLOPRAMIDE HCL 10 MG/2 ML VIAL IVS SCH (09:14)
[2017-08-18] MEDS: FUROSEMIDE 20 MG/2 ML VIAL IV PUSH SCH (09:14)
[2017-08-18 12:00] VITALS: BP 143/84; PULSE 113; RESP 16; TEMP 98.4; O2SAT 95
--- NOTE | 2017-08-18 15:03 | HHI.PR ---
Subjective Remarks C/R Surg POD afebrile, VSS UO good no SOB Objective - Vital Signs Date Time Temp Pulse Resp B/P (MAP) Pulse Ox O2 Delivery O2 Flow Rate FiO2 08/18/17 12:00 98.4 113 16 143/84 (103) 95 08/18/17 11:14 Room Air 08/17/17 07:51 4.00 Result Diagram: 08/15/17 1152 08/15/17 1152 Objective Remarks PE alert Abd - soft, wound dry, ++ flatus A/P Assessment and Plan Imp: OOB decr IVF, lasix start PO, adv dulcolax dc plans Og Fuentes MD Aug 18, 2017 15:03
[2017-08-18 16:00] VITALS: BP 127/87; PULSE 82; RESP 16; TEMP 98; O2SAT 94
[2017-08-18] MEDS ORDERED: BISACODYL EC 5 MG TABEC PO ONE (17:00)
--- NOTE | 2017-09-04 09:58 | MD ---
cc: MONROE PARRA M.D. ADMISSION DATE: 08/13/2017 DISCHARGE DATE: 08/18/2017 ADMISSION DIAGNOSIS Full thickness rectal prolapse. PROCEDURE 08/13/2017 - Exploratory laparotomy with rectopexy. DISCHARGE DIAGNOSES Full thickness rectal prolapse. HISTORY OF PRESENT ILLNESS Ms. Patricia is a very pleasant 81-year-old female who has been followed for many years with a rectal prolapse. The prolapse has been getting worse with more frequency and increased disability with pain and tenderness. She never actually had a colonic evaluation which was recommended. She still has more discharge and drainage from the prolapse, although she denies any stool and denies any bleeding. She does have some trouble with fecal control. Denies any abdominal pain but does see some blood when she goes to the bathroom. The patient decided at this point to go ahead and have the prolapse repaired and was admitted at this time for the definitive surgery. Please see the admitting history and physical for more complete past medical and surgical history. PERTINENT PHYSICAL GENERAL: A very pleasant older female in no acute distress. ABDOMEN: Soft, nondistended. Very little tympany. No rebound or guarding or masses. Previous lower incision is well-healed. ANAL INSPECTION: Reveals patulous anal canal with full-thickness rectal prolapse easily produced and reduced manually. No rectal masses or tenderness. HOSPITAL COURSE After admission, the patient was taken to the operating room on August 13, 2017, at which point she underwent an exploratory laparotomy and rectopexy. She had had a previous repair so there were a fair number of adhesions in the retroperitoneum and posterior pelvis. Rectopexy was finally performed with good fixation of the rectum. She tolerated the procedure quite well. She did have slow return of her bowel function and her diet was advanced accordingly. She also required some assistance with IV diuretics for some postop hypoxemia. The patient required some stool softener as well to get the bowels started. She continued to improve her strength and ambulation and was doing well enough to be tapered off her IV fluids and discharged home on August 18, 2017. DISCHARGE INSTRUCTIONS The patient was discharged eating a regular diet. She was encouraged to ambulate daily, avoiding any heavy lifting or straining. All preop medications were to be resumed. The patient will continue to take her laxatives as needed and stool softeners if required. The patient will be seen in the office in one weeks' time for routine follow-up. Any problems prior to the office visit, she was encouraged to call for more urgent attention. MD MARY Senior/VAHID /8:23 PM /9:48 AM
== END 2017-08-18 18:54 | disposition home or self-care (01) | DRG 330 ==
LOC: HSDI 13:10 → HCIN 19:57 → N07B 08-15 23:02
PROVIDERS: ADMIT Colon & Rectal Surgery; ATTEND Colon & Rectal Surgery
PROC: 0DSP0ZZ Reposition Rectum, Open Approach (ICD-10-PCS; principal; 2017-08-13 16:24)
DX: K62.3 Rectal prolapse (principal); Q43.8 Other specified congenital malformations of intestine; I10 Essential (primary) hypertension; E78.5 Hyperlipidemia, unspecified; R06.02 Shortness of breath; Z91.041 Radiographic dye allergy status; Z87.891 Personal history of nicotine dependence
CPT/HCPCS: 80048; 85025; 86850; 86900; 86901; 94150; C9113; J0131; J0690; J1940; J2250; J2270; J2370; J2405; J2765; J3010; J3480; J7120

== ENCOUNTER 2018-07-24 15:14 | Inpatient (IN) ==
--- NOTE | 2018-07-24 17:17 | ED ---
HPI General Chief complaint: Extremity Problem,Nontraumatic Stated complaint: Evac/Fall Time Seen by Provider: 07/24/18 16:56 Source: patient, family and RN notes reviewed Mode of arrival: EMS Limitations: no limitations History of Present Illness HPI Narrative: 82-year-old female presents to the emergency department for evaluation of right proximal femur fracture. Patient states that she twisted her leg and fell 1 month ago. She has been trying to walk with a cane and a walker since. She saw her primary care physician today, Dr. Chapman, who ordered an x-ray of the pelvis and the right hip. She had these done at [facility] and was found to have a acute/subacute appearing fracture of the right subcapital femoral neck with superior lateral displacement and comminuted appearance. The patient was then brought in by EMS. She now reports severe pain in the right hip and inability to walk. She states that the pain has worsened today as she has been walking. Patient denies any other injury or pain at this time. She does have history of hypertension, hyperlipidemia. She is not on anticoagulants, but takes a baby aspirin daily. She has not taken this today. She states she last ate or drank yesterday. Moderate severity. MD Complaint: extremity pain Onset (ago): month(s) (1) Pain Consistency: constant Location: right Severity scale (1-10): 8 Quality: aching Radiation: none Relieving factors: immobilization Exacerbating factors: weight bearing and walking Associated symptoms: denies other symptoms Related Data Home Medications Medication Instructions Recorded Confirmed amlodipine 5 mg PO DAILY 07/24/18 07/24/18 aspirin 81 mg PO DAILY 07/24/18 07/24/18 atorvastatin 180 mg PO DAILY 07/24/18 07/24/18 celecoxib 100 mg PO DAILY 07/24/18 07/24/18 ezetimibe 10 mg PO DAILY 07/24/18 07/24/18 metoprolol tartrate 12.5 mg PO TID 07/24/18 07/24/18 paroxetine HCl [Paxil] 20 mg PO DAILY 07/24/18 07/24/18 temazepam [Restoril] 07/24/18 tolterodine [Detrol] 2 mg PO DAILY 07/24/18 07/24/18 Allergies Allergy/AdvReac Type Severity Reaction Status Date / Time cephalexin Allergy Severe Rash Verified 07/24/18 18:07 diatrizoate meglumine Allergy Severe Anaphylaxis Verified 07/24/18 18:07 gadobenic acid Allergy Severe Anaphylaxis Verified 07/24/18 18:07 gadodiamide Allergy Severe Anaphylaxis Verified 07/24/18 18:07 gadoteridol Allergy Severe Anaphylaxis Verified 07/24/18 18:07 Iodinated Contrast- Oral and Allergy Severe Anaphylaxis Verified 07/24/18 18:07 IV Dye iodixanol Allergy Severe Anaphylaxis Verified 07/24/18 18:07 iohexol Allergy Severe Anaphylaxis Verified 07/24/18 18:07 Sulfa (Sulfonamide Allergy Severe Rash Verified 07/24/18 18:07 Antibiotics) Review of Systems ROS: all other systems reviewed are negative PMFSH Medical History Medical History HTN (hypertension) (Acute) Murmur (Acute) Rectal prolapse (Acute) Surgical History Surgical History H/O right knee surgery (Acute) Social History Social History Smoking Status: Former smoker How Often Do You Have a Drink Containing Alcohol: 4 or more times a week Recent Travel in [facility] [place] within the Last 8 Weeks: No Recent Out of Country Travel within the Last 8 Weeks: No Immunization History Tetanus Immunization: Unsure Hx Influenza Vaccine This Season: No Exam Narrative Exam Narrative: GENERAL: Well-nourished, well-developed elderly female patient, afebrile. SKIN: Focused skin assessment warm/dry. HEAD: Normocephalic. Atraumatic. EYES: No scleral icterus. No injection or drainage. NECK: Supple, trachea midline. No JVD or lymphadenopathy. CARDIOVASCULAR: Regular rate and rhythm without murmurs, gallops, or rubs. Bilateral radial and pedal pulses 2+ RESPIRATORY: Breath sounds equal bilaterally. No accessory muscle use. Lung sounds are clear to auscultation GASTROINTESTINAL: Abdomen soft, non-tender, nondistended. MUSCULOSKELETAL: No cyanosis, or edema. Right hip is propped up on blankets. No open areas. She has tenderness over right hip BACK: Nontender without obvious deformity. No CVA tenderness. Course Initial Documented Vital Signs Temperature 98.9 F 07/24/18 15:51 Pulse Rate 90 07/24/18 15:51 Respiratory Rate 20 07/24/18 15:51 Blood Pressure 188/86 H 07/24/18 15:51 Pulse Oximetry 97 07/24/18 15:51 Last Documented Vital Signs Temperature 98.9 F 07/24/18 15:51 Pulse Rate 78 07/24/18 17:58 Respiratory Rate 19 07/24/18 17:58 Blood Pressure 154/68 H 07/24/18 17:58 Pulse Oximetry 98 07/24/18 17:58 Medical Decision Making MDM Narrative Medical decision making narrative: 82-year-old female presents to the emergency department for right hip fracture. Patient x-rays and a poor origin imaging today which show a right proximal femur fracture. Orthopedist on-call is paged. IV access obtained. CBC, CMP, PTT, PT/INR, EKG, chest x-ray ordered and pending. I spoke to Dr. Garza, orthopedist shelter monitor, who would like patient admitted to medicine and NPO after midnight. CBC shows leukocytosis of 11.2. CMP shows BUN 27, creatinine of 1.08. PTT is 25.6. PT/INR is 9.8/1.0. EKG shows SR, Hr 79, no acute ST changes. Chest x- ray shows no acute cardiopulmonary disease. Dr. Calderón accepted admission. Medical Screen Exam Complete: Yes Emergency Medical Condition: Yes Differential Diagnosis Differential Diagnosis: Fracture versus dislocation versus contusion Medical Records Medical records reviewed: Yes I reviewed the patient's medical records. Lab Data Result diagrams: 07/24/18 16:15 07/24/18 16:15 Lab Results 07/24/18 07/24/18 07/24/18 Range/Units 16:15 16:15 16:15 WBC 11.2 H (4.0-11.0) th/mm3 RBC 3.81 L (4.00-5.30) mil/mm3 Hgb 12.5 (11.6-15.3) gm/dL Hct 37.0 (35.0-46.0) % MCV 97.2 (80.0-100.0) fL MCH 32.7 (27.0-34.0) pg MCHC 33.6 (32.0-36.0) % RDW 14.6 (11.6-17.2) % Plt Count 214 (150-450) th/mm3 MPV 8.5 (7.0-11.0) fL Neut % (Auto) 87.1 H (16.0-70.0) % Lymph % (Auto) 8.4 L (9.0-44.0) % [place] % (Auto) 4.0 (0.0-8.0) % Eos % (Auto) 0.0 (0.0-4.0) % Baso % (Auto) 0.5 (0.0-2.0) % Neut # (Auto) 9.8 H (1.8-7.7) th/mm3 Lymph # (Auto) 0.9 L (1.0-4.8) th/mm3 [place] # (Auto) 0.5 (0.0-0.9) th/mm3 Eos # (Auto) 0.0 (0.0-0.4) th/mm3 Baso # (Auto) 0.1 (0.0-0.2) th/mm3 WBC Differential . Differential Comment Auto diff final PT 9.8 (9.8-11.6) sec INR 1.0 Ratio APTT 25.6 (24.3-30.1) sec Sodium 139 (136-145) meq/L Potassium 4.2 (3.5-5.1) meq/L Chloride 106 (98-107) meq/L Carbon Dioxide 20.6 L (21.0-32.0) meq/L Anion Gap 12 (5-15) meq/L BUN 27 H (7-18) mg/dL Creatinine 1.08 H (0.50-1.00) mg/dL Estimated GFR 49 L (>89) mL/min Random Glucose 100 (74-106) mg/dL Calcium 9.5 (8.5-10.1) mg/dL Total Bilirubin 0.6 (0.2-1.0) mg/dL AST 21 (15-37) U/L ALT 19 (10-53) U/L Alkaline Phosphatase 126 H (45-117) U/L Total Protein 7.6 (6.4-8.2) g/dL Albumin 4.0 (3.4-5.0) g/dL Imaging Data Radiologist's impression: Chest X-Ray 07/24/18 17:10 CONCLUSION: No acute cardiopulmonary disease. Discharge Plan Discharge Disposition Patient Disposition: 30 Still Patient Discharge Details Diagnosis: Closed fracture of proximal end of right femur Physicians Team ED Provider: Edward Maya ED Midlevel Provider: Jordyn Chen Primary Care Provider: Ebenezer Chapman Attending Provider: Mackenzie Calderón Discharge Interventions Interventions: Vital Signs Last Done: 07/24/18 17:58 Status ED Status: Admitted Patient
--- NOTE | 2018-07-24 17:40 | XR ---
EXAM DATE: 07/24/2018 5:35 PM EDT AGE/SEX: 82 years / Female INDICATIONS: Evaluate for pneumonia, pneumothorax, or other communicable diseases. Preop for left hi p surgery. CLINICAL DATA: This is the patient's initial encounter. Patient reports that signs and symptoms have been present for 1 day and indicates a pain score of 0/10. MEDICAL/SURGICAL HISTORY: . Chronic obstructive pulmonary disease. Hypercholesterolemia. Hypert ension. Emphysema. Irritable bowel syndrome. Depression. Anxiety. Measles. . Tonsillectomy. Appen dectomy. Tubal ligation. Bilateral eye surgery. Adenoidectomy. Bilateral carpal tunnel surgery. Left foot neuroma removed. COMPARISON: [facility] [place], CHEST PA & LAT, 08/06/2017. . FINDINGS: The lungs are clear without infiltrate, nodule, or mass. There is no appreciable pleural effusion for technique. Heart and mediastinum are unremarkable. Significant hypertrophic change isha ateral AC joints and there is high riding of the humeral head bilaterally chronic in nature. CONCLUSION: No acute cardiopulmonary disease. Electronically signed by: Alexei Hubbard MD 07/24/2018 5:39 PM EDT
[2018-07-24] MEDS ORDERED: Morphine Sulfate Inj 2 MG/ML Vial IV.PUSH ONE (17:59)
[2018-07-24 18:01] LABS: Baso # (Auto) 0.1 th/mm3 (0.0-0.2); Baso % (Auto) 0.5 % (0.0-2.0); Hemoglobin 12.5 gm/dL (11.6-15.3); Lymph # (Auto) 0.9 th/mm3 (1.0-4.8); Lymph % (Auto) 8.4 % (9.0-44.0); Mean Corpuscular HGB Conc 33.6 % (32.0-36.0); Mean Corpuscular Hemoglobin 32.7 pg (27.0-34.0); Mean Corpuscular Volume 97.2 fL (80.0-100.0); Mean Platelet Volume 8.5 fL (7.0-11.0); Mono # (Auto) 0.5 th/mm3 (0.0-0.9); Neut # (Auto) 9.8 th/mm3 (1.8-7.7); Neut % (Auto) 87.1 % (16.0-70.0); Platelet Count 214 th/mm3 (150-450); Red Blood Count 3.81 mil/mm3 (4.00-5.30); Red Cell Distribution Width 14.6 % (11.6-17.2); White Blood Count 11.2 th/mm3 (4.0-11.0)
[2018-07-24 18:11] LABS: Activated Partial Thrombo Time 25.6 sec (24.3-30.1); Prothrombin Time 9.8 sec (9.8-11.6)
[2018-07-24 18:28] LABS: Anion Gap 12 meq/L (5-15); Aspartate Aminotransferase 21 U/L (15-37); Blood Urea Nitrogen 27 mg/dL (7-18); Calcium 9.5 mg/dL (8.5-10.1); Carbon Dioxide 20.6 meq/L (21.0-32.0); Chloride 106 meq/L (98-107); Glomerular Filtration Rate 49 mL/min (>89); Glucose,Random 100 mg/dL (74-106); Potassium 4.2 meq/L (3.5-5.1); Sodium 139 meq/L (136-145)
[2018-07-24 18:30] LABS: Alanine Aminotransferase 19 U/L (10-53)
[2018-07-24 18:32] LABS: Alkaline Phosphatase 126 U/L (45-117); Total Protein 7.6 g/dL (6.4-8.2)
[2018-07-24] MEDS ORDERED: Morphine Inj 4 MG/ML Vial IV.PUSH PRN (20:43)
[2018-07-24] MEDS ORDERED: Bisacodyl 10 MG Supp RECTAL PRN (20:56)
[2018-07-24] MEDS ORDERED: Acetaminophen 325 MG Tablet PO PRN (20:56)
[2018-07-24] MEDS: Morphine Inj 4 MG/ML Vial IV.PUSH PRN (21:32)
--- NOTE | 2018-07-24 21:39 | P.HP ---
History of Present Illness Service: [facility] Primary Care Physician: Ebenezer Chapman MD History of Present Illness: 82-year-old female with past medical history significant for hypertension, hyperlipidemia and chronic kidney disease stage III presents the emergency department for the evaluation of right leg pain. The patient reports that approximately 1 month ago she was walking around a corner, lost her balance and fell in a twisting motion. She denies any head trauma or loss of consciousness associated with the event. She reports she walks with a walker and has been doing so for the past month since the fall. She was seen by her primary care physician for persistent right lower extremity pain earlier today and was sent for imaging at [facility]. The patient's x-rays revealed a right proximal femur fracture. She denies any chest pain or shortness of breath. No abdominal pain. No nausea/vomiting/diarrhea. No fevers/chills. Inpatient Certification: I certify that the inpatient services were ordered in accordance with Medicare regulations governing the order. This includes certification that hospital inpatient services are reasonable and necessary and in the case of services not specified as inpatient-only under 42 CFR 419.22(n), that they are appropriately provided as inpatient services in accordance to with the 2-midnight benchmark under 43 CFR 412.3(e) Estimated Total Length of Stay (Days): 3 Plans for Post Hospital Care: Not yet determined Review of Systems All other systems reviewed negative except as stated in HPI [facility] - History History Provided By: Patient - Medical History Medical History: Medical History (Last Updated 07/24/18 @ 21:36 by Mackenzie Calderón MD) Cataract Cataract fragments in eye following surgery Chronic kidney disease HTN (hypertension) Hyperlipidemia Murmur Rectal prolapse - Surgical History Surgical History: Surgical History (Last Updated 07/24/18 @ 21:36 by Mackenzie Calderón MD) H/O right knee surgery History of appendectomy History of bilateral tubal ligation History of carpal tunnel surgery History of tonsillectomy Status post excision of Zhang's neuroma - Family History Family History: Family History (Last Updated 07/24/18 @ 21:36 by Mackenzie Calderón MD) Other Coronary artery disease - Tobacco History Smoking Status: Former smoker - Alcohol History How Often Do You Have a Drink Containing Alcohol: 4 or more times a week - Travel History Recent Travel in the [place] Within the Last 8 Weeks: No Recent Travel Out of the Country Within the Last 8 Weeks: No - Immunization History Tetanus Immunization: Unsure Hx Influenza Vaccine This Season: No Medications and Allergies Active Medications: Active Medications Acetaminophen (Tylenol) 650 mg PO Q4H PRN PRN Reason: Temp > 100.4 Al Hydroxide/Mg Hydroxide (Milk Of Magnesia Liq) 30 ml PO Q12H PRN PRN Reason: Mild Constipation Amlodipine Besylate (Norvasc) 5 mg PO DAILY [facility] Atorvastatin Calcium (Lipitor) 180 mg PO DAILY [facility] Bisacodyl (Dulcolax Supp) 10 mg RECTAL DAILY PRN PRN Reason: SEVERE CONSITIPATION Ezetimibe (Zetia) 10 mg PO DAILY [facility] Lactulose (Lactulose Liq) 30 ml PO DAILY PRN PRN Reason: SEVERE CONSITIPATION Metoprolol Tartrate (Lopressor) 12.5 mg PO TID [facility] Morphine Sulfate (Morphine Inj) 4 mg IV.PUSH Q4H PRN PRN Reason: pain > 5 Morphine Sulfate (Morphine Inj) 2 mg IV.PUSH Q4H PRN PRN Reason: pain 3 - 5 Non-Formulary Medication (Tolterodine) 2 mg PO DAILY [facility] Ondansetron HCl (Zofran Inj) 4 mg IV.PUSH Q6H PRN PRN Reason: NAUSEA OR VOMITING Paroxetine HCl (Paxil) 20 mg PO DAILY [facility] Sennosides (Senokot) 17.2 mg PO Q12H PRN PRN Reason: Moderate Constipation Temazepam (Restoril) 7.5 mg PO HS PRN PRN Reason: INSOMNIA Allergies Allergy/AdvReac Type Severity Reaction Status Date / Time cephalexin Allergy Severe Rash Verified 07/24/18 18:07 diatrizoate meglumine Allergy Severe Anaphylaxis Verified 07/24/18 18:07 gadobenic acid Allergy Severe Anaphylaxis Verified 07/24/18 18:07 gadodiamide Allergy Severe Anaphylaxis Verified 07/24/18 18:07 gadoteridol Allergy Severe Anaphylaxis Verified 07/24/18 18:07 Iodinated Contrast- Oral and Allergy Severe Anaphylaxis Verified 07/24/18 18:07 IV Dye iodixanol Allergy Severe Anaphylaxis Verified 07/24/18 18:07 iohexol Allergy Severe Anaphylaxis Verified 07/24/18 18:07 Sulfa (Sulfonamide Allergy Severe Rash Verified 07/24/18 18:07 Antibiotics) Home Medications Medication Instructions Recorded Confirmed Type amlodipine 5 mg PO DAILY 07/24/18 07/24/18 History aspirin 81 mg PO DAILY 07/24/18 07/24/18 History atorvastatin 180 mg PO DAILY 07/24/18 07/24/18 History celecoxib 100 mg PO DAILY 07/24/18 07/24/18 History ezetimibe 10 mg PO DAILY 07/24/18 07/24/18 History metoprolol tartrate 12.5 mg PO TID 07/24/18 07/24/18 History paroxetine HCl [Paxil] 20 mg PO DAILY 07/24/18 07/24/18 History temazepam [Restoril] 07/24/18 History tolterodine [Detrol] 2 mg PO DAILY 07/24/18 07/24/18 History Exam Vital signs: Vital Signs 07/24/18 15:51 07/24/18 17:58 Temperature 98.9 F Pulse Rate 90 78 Respiratory Rate 20 19 Blood Pressure 188/86 H 154/68 H Pulse Oximetry 97 98 Intake & Output 07/24/18 07/24/18 07/25/18 06:59 18:59 06:59 Weight 49.895 kg Narrative: Gen.: No acute distress Head: Normocephalic. Atraumatic. EENT: Pupils equal round and reactive to light. Nose without drainage. Airway intact. Throat without injection. Cardiovascular: Regular rate and rhythm. No murmurs, rubs or gallops. Respiratory: Lungs clear to auscultation bilaterally. No wheezes or rhonchi. Abdomen: Soft, nontender, nondistended. No peritoneal signs. Musculoskeletal: No gross deformities. No edema. Right lower extremity neurovascularly intact Skin: No obvious rashes or erythema. Neuro: Sensory and motor grossly intact. Cranial nerves II through XII grossly intact. Results - Labs CBC & Chem 7: 07/24/18 16:15 07/24/18 16:15 Labs: Laboratory Results - last 24 hr 07/24/18 07/24/18 07/24/18 16:15 16:15 16:15 WBC 11.2 H RBC 3.81 L Hgb 12.5 Hct 37.0 MCV 97.2 MCH 32.7 MCHC 33.6 RDW 14.6 Plt Count 214 MPV 8.5 Neut % (Auto) 87.1 H Lymph % (Auto) 8.4 L [place] % (Auto) 4.0 Eos % (Auto) 0.0 Baso % (Auto) 0.5 Neut # (Auto) 9.8 H Lymph # (Auto) 0.9 L [place] # (Auto) 0.5 Eos # (Auto) 0.0 Baso # (Auto) 0.1 WBC Differential . Differential Comment Auto diff final PT 9.8 INR 1.0 APTT 25.6 Sodium 139 Potassium 4.2 Chloride 106 Carbon Dioxide 20.6 L Anion Gap 12 BUN 27 H Creatinine 1.08 H Estimated GFR 49 L Random Glucose 100 Calcium 9.5 Total Bilirubin 0.6 AST 21 ALT 19 Alkaline Phosphatase 126 H Total Protein 7.6 Albumin 4.0 - Imaging Impressions Chest X-Ray 07/24/18 17:10 CONCLUSION: No acute cardiopulmonary disease. Caprini VTE Risk Assessment Caprini VTE Risk Assessment: Moderate/High Risk (score >= 2) Caprini Risk Assessment Model: Point Value = 1 Point Value = 2 Point Value = 3 Point Value = 5 Age 41-60 Minor surgery BMI > 25 kg/m2 Swollen legs Varicose veins or History of unexplained or recurrent spontaneous Oral contraceptives or hormone replacement Sepsis (< 1 month) Serious lung disease, including pneumonia (< 1 month) Abnormal pulmonary function Acute myocardial infarction Congestive heart failure (< 1 month) History of inflammatory bowel disease Medical patient at bed rest Age 61-74 Arthroscopic surgery Major open surgery (> 45 min) Laparoscopic surgery (> 45 min) Malignancy Confined to bed (> 72 hours) Immobilizing plaster cast Central venous access Age >= 75 History of VTE Family history of VTE Factor V Leiden Prothrombin [id number] Lupus anticoagulant Anticardiolipin antibodies Elevated serum homocysteine Heparin-induced thrombocytopenia Other congenital or acquired thrombophilia Stroke (< 1 month) Elective arthroplasty Hip, pelvis, or leg fracture Acute spinal cord injury (< 1 month) Prophylaxis Regimen: Total Risk Factor Score Risk Level Prophylaxis Regimen 0-1 Low Early ambulation 2 Moderate Order ONE of the following: *Sequential Compression Device (SCD) *Heparin 5000 units SQ BID 3-4 Higher Order ONE of the following medications: *Heparin 5000 units SQ TID *Enoxaparin/Lovenox 40 mg SQ daily (WT < 150 kg, CrCl > 30 mL/min) *Enoxaparin/Lovenox 30 mg SQ daily (WT < 150 kg, CrCl > 10-29 mL/min) *Enoxaparin/Lovenox 30 mg SQ BID (WT < 150 kg, CrCl > 30 mL/min) AND/OR *Sequential Compression Device (SCD) 5 or more Highest Order ONE of the following medications: *Heparin 5000 units SQ TID (Preferred with Epidurals) *Enoxaparin/Lovenox 40 mg SQ daily (WT < 150 kg, CrCl > 30 mL/min) *Enoxaparin/Lovenox 30 mg SQ daily (WT < 150 kg, CrCl > 10-29 mL/min) *Enoxaparin/Lovenox 30 mg SQ BID (WT < 150 kg, CrCl > 30 mL/min) AND *Sequential Compression Device (SCD) Assessment and Plan - Plan Assessment/plan: 1. Right proximal femur fracture Orthopedic surgery consulted, appreciate recommendations Morphine for pain 2. Hypertension Continue home metoprolol, amlodipine 3. Hyperlipidemia Continue home atorvastatin 4. Chronic kidney disease Creatinine 1.08 Monitor renal function FEN N.p.o. Electrolytes: Monitor and replete as needed NS at 70 cc/hour
[2018-07-24] MEDS ORDERED: HYDROmorphone PF Inj 2 MG/ML Vial IV.PUSH ONE (22:53)
[2018-07-24] MEDS: Sod Chloride 0.9% Inj 1,000 ML IV.CONT SCH (23:07)
[2018-07-24] MEDS ORDERED: Chlorhexidine Gluconate 2% 1 Pack (2 Cloths) TOPICAL SCH (23:15)
[2018-07-24] MEDS ORDERED: Sodium Chlor 0.9% Inj 500 ML IV.SIG SCH (23:45)
[2018-07-25] MEDS: Morphine Inj 4 MG/ML Vial IV.PUSH PRN (04:24)
[2018-07-25] MEDS: HYDROmorphone PF Inj 2 MG/ML Vial IV.PUSH PRN ×3 (08:31→22:26)
[2018-07-25] MEDS: Metoprolol Tartrate 25 MG Tablet PO SCH ×4 (08:34→17:38)
[2018-07-25] MEDS: amLODIPine 5 MG Tablet PO SCH (08:34)
[2018-07-25] MEDS: Ezetimibe 10 MG Tablet PO SCH (08:34)
[2018-07-25] MEDS ORDERED: Glycopyrrolate Inj 1 MG/5 ML Syringe IV.PUSH ONE (12:00)
[2018-07-25] MEDS ORDERED: Sodium Chlor 0.9% Inj 250 ML IV.SIG ONE (12:00)
[2018-07-25] MEDS ORDERED: Phenylephrine/NS 1000 MCG/10ML Syringe IV.PUSH ONE (12:00)
[2018-07-25] MEDS ORDERED: Lidocaine PF 1% Inj 5 ML Syringe INFILTRATN ONE (12:00)
[2018-07-25] MEDS ORDERED: Neostigmine Inj 5 MG/5 ML Syringe IV.PUSH ONE (12:00)
--- NOTE | 2018-07-25 12:47 | ECG ---
Date Performed: 07/24/2018 Time Performed: 18:16:55 PTAGE: 82 years EKG: Sinus rhythm NORMAL ECG PREVIOUS TRACING : 08/06/2017 11.59 Since the previous tracing, no significant change noted DOCTOR: Herberth Stephens Interpretating Date/Time 07/25/2018 12:44:44
--- NOTE | 2018-07-25 13:07 | P.PNIM ---
Subjective Interval history: Patient seen and examined this morning. Afebrile vital signs stable. Reports that her pain controlled with the pain medicines. Patient understands that she is waiting for further evaluation by the orthopedic surgeon with likely further surgical treatment. No complaints or issues to report at this time. Physical Exam Vital signs: Vital Signs 07/24/18 15:51 07/24/18 17:58 07/24/18 21:00 Temperature 98.9 F 97.7 F Pulse Rate 90 78 90 Respiratory Rate 20 19 18 Blood Pressure 188/86 H 154/68 H 171/74 H Pulse Oximetry 97 98 93 L 07/25/18 00:00 07/25/18 06:00 07/25/18 08:00 Temperature 98.3 F 97.6 F 98.1 F Pulse Rate 87 97 H 86 Respiratory Rate 20 18 13 Blood Pressure 147/65 H 168/71 H 144/65 H Pulse Oximetry 92 L 91 L 90 L 07/25/18 10:00 Temperature Pulse Rate Respiratory Rate 16 Blood Pressure Pulse Oximetry 94 L Intake & Output 07/24/18 07/25/18 07/25/18 18:59 06:59 18:59 Intake Total 0 / 0 Balance 0 / 0 Weight 49.895 kg 49.8 kg Intake: Oral 0 / 0 Other: # Voids 1 Date of Last Bowel Movement 07/24/18 07/24/18 Weight On Admission 49.89 kg Narrative: GEN: Well-developed, well-nourished elderly patient. No acute distress. CV: Regular rate and rhythm soft systolic murmur LUNGS: Clear to auscultation bilaterally. Normal respiratory effort. No wheezes , rales, rhonchi. GI: Soft, nontender, nondistended. No palpable masses. Bowel sounds WNL. EXT: No edema. Able to move all extremities except for her right leg due to pain NEURO/PSYCH: Afocal. Awake, alert, and oriented x3. Appropriate insight and judgment. Results - Labs CBC & Chem 7: 07/24/18 16:15 07/24/18 16:15 Laboratory Results - last 24 hr 07/24/18 07/24/18 07/24/18 16:15 16:15 16:15 WBC 11.2 H RBC 3.81 L Hgb 12.5 Hct 37.0 MCV 97.2 MCH 32.7 MCHC 33.6 RDW 14.6 Plt Count 214 MPV 8.5 Neut % (Auto) 87.1 H Lymph % (Auto) 8.4 L [place] % (Auto) 4.0 Eos % (Auto) 0.0 Baso % (Auto) 0.5 Neut # (Auto) 9.8 H Lymph # (Auto) 0.9 L [place] # (Auto) 0.5 Eos # (Auto) 0.0 Baso # (Auto) 0.1 WBC Differential . Differential Comment Auto diff final PT 9.8 INR 1.0 APTT 25.6 Sodium 139 Potassium 4.2 Chloride 106 Carbon Dioxide 20.6 L Anion Gap 12 BUN 27 H Creatinine 1.08 H Estimated GFR 49 L Random Glucose 100 Calcium 9.5 Total Bilirubin 0.6 AST 21 ALT 19 Alkaline Phosphatase 126 H Total Protein 7.6 Albumin 4.0 Blood Type Antibody Screen 07/25/18 05:40 WBC RBC Hgb Hct MCV MCH MCHC RDW Plt Count MPV Neut % (Auto) Lymph % (Auto) [place] % (Auto) Eos % (Auto) Baso % (Auto) Neut # (Auto) Lymph # (Auto) [place] # (Auto) Eos # (Auto) Baso # (Auto) WBC Differential Differential Comment PT INR APTT Sodium Potassium Chloride Carbon Dioxide Anion Gap BUN Creatinine Estimated GFR Random Glucose Calcium Total Bilirubin AST ALT Alkaline Phosphatase Total Protein Albumin Blood Type O Positive Antibody Screen Negative - Imaging Impressions Chest X-Ray 07/24/18 17:10 CONCLUSION: No acute cardiopulmonary disease. Proximal femur fracture of the right leg seen on imaging that was performed in [place] Assessment and Plan - Assessment (1) Closed fracture of proximal end of right femur Code(s): S72.001A - Fracture of unspecified part of neck of right femur, initial encounter for closed fracture Status: Acute - Plan 82-year-old female with past medical history significant for hypertension, hyperlipidemia and chronic kidney disease stage III presents the emergency department for the evaluation of right leg pain. 1. Right proximal femur fracture Orthopedic surgery consulted, appreciate recommendations Morphine for pain 2. Hypertension Continue home metoprolol, amlodipine 3. Hyperlipidemia Continue home atorvastatin 4. Chronic kidney disease Creatinine 1.08 Monitor renal function FEN N.p.o. Electrolytes: Monitor and replete as needed NS at 70 cc/hour Code Status: Full code Discharge Planning: Pending clearance by orthopedic surgery (1) Closed fracture of proximal end of right femur Qualifiers: Encounter type: initial encounter Qualified Code(s): S72.001A - Fracture of unspecified part of neck of right femur, initial encounter for closed fracture
[2018-07-25] MEDS: Sod Chloride 0.9% Inj 1,000 ML IV.CONT SCH ×2 (13:08→21:10)
[2018-07-25] MEDS ORDERED: Tranexamic Acid Inj 1,000 MG in Sodium Chlor 0.9% Inj 100 ML IV.SIG SCH (14:00)
[2018-07-25] MEDS: Clindamycin Inj 600 MG/4 ML Vial ONE ×2 (14:05→21:05)
[2018-07-25] MEDS ORDERED: Bupivacaine Liposomal PF 1.3% Inj 20 ML Vial ONE (15:29)
[2018-07-25] MEDS ORDERED: Post-op Orders (for Pharmacy) OTHER STA (15:56)
[2018-07-25] MEDS ORDERED: fentaNYL Citrate Inj 100 MCG/2 ML Ampul ONE (16:10)
--- NOTE | 2018-07-25 16:13 | P.CONOP ---
[facility] Orthopedics Consult Note - [facility] Consult date: 07/25/18 Consult reason: fracture Chief complaint: right proximal femur fracture Narrative: The patient is is 82-year-old female who sustained a significant fall and injury to her right hip about 1 month ago. She is able to compensate for this by using a walker and not putting full weight on the right leg. She states that a few days ago she attempted to ambulate with the use of a cane and her symptoms became much worse. Her primary care physician ordered plain x-rays at [facility] which revealed a displaced right femoral neck fracture. She was admitted to the medical service with consultation placed with the undersigned Review of Systems All other systems reviewed negative except as stated in [facility] - History History Provided By: Patient, Significant Other - Medical History Medical History: Medical History (Last Updated 07/24/18 @ 23:16 by Mona Reece RN) Anxiety Cataract Cataract fragments in eye following surgery Chronic kidney disease Depression Diminished hearing HTN (hypertension) Hyperlipidemia Murmur Rectal prolapse - Surgical History Surgical History: Surgical History (Last Updated 07/24/18 @ 21:36 by Mackenzie Calderón MD) H/O right knee surgery History of appendectomy History of bilateral tubal ligation History of carpal tunnel surgery History of tonsillectomy Status post excision of Zhang's neuroma - Family History Family History: Family History (Last Updated 07/24/18 @ 21:36 by Mackenzie Calderón MD) Other Coronary artery disease - Tobacco History Second Hand Smoke Exposure: No Smoking Status: Never smoker - Alcohol History How Often Do You Have a Drink Containing Alcohol: 4 or more times a week - Substance Use History Substance History: No History of Abuse - Travel History Recent Travel in the [facility] Within the Last 8 Weeks: No Recent Travel Out of the Country Within the Last 8 Weeks: No - Immunization History Tetanus Immunization: Unsure Hx Influenza Vaccine This Season: No Medications and Allergies Active Medications: Active Medications Acetaminophen (Tylenol) 650 mg PO Q4H PRN PRN Reason: Temp > 100.4 Al Hydroxide/Mg Hydroxide (Milk Of Magnesia Liq) 30 ml PO Q12H PRN PRN Reason: Mild Constipation Amlodipine Besylate (Norvasc) 5 mg PO DAILY [facility] Last Admin: 07/25/18 08:34 Dose: Not Given Atorvastatin Calcium (Lipitor) 80 mg PO DAILY [facility] Last Admin: 07/25/18 08:32 Dose: Not Given Bisacodyl (Dulcolax Supp) 10 mg RECTAL DAILY PRN PRN Reason: SEVERE CONSITIPATION Chlorhexidine Gluconate (Chlorhexidine 2% Cloth) 3 pack [employer] Stop: 07/27/18 23:11 Ezetimibe (Zetia) 10 mg PO DAILY [facility] Last Admin: 07/25/18 08:34 Dose: Not Given Enoxaparin Sodium (Lovenox Inj) 40 mg SQ Q24H [facility] Hydromorphone HCl (Dilaudid Pf Inj) 0.5 mg IV.PUSH Q4H PRN PRN Reason: PAIN SCALE 6-10 Last Admin: 07/25/18 12:31 Dose: 0.5 mg Sodium Chloride (Ns Inj) 1,000 mls @ 70 mls/hr IV.CONT .[id number] [facility] Last Admin: 07/25/18 13:08 Dose: 70 mls/hr Lactated Ringer's (Lr 1000 Ml Inj) 1,000 mls @ 30 mls/hr IV.SIG .Q24H [facility] Stop: 07/27/18 23:11 Last Admin: 07/25/18 03:41 Dose: 1 mls/hr Sodium Chloride (Ns Inj) 500 mls @ 30 mls/hr IV.SIG .Q10H [facility] Stop: 07/27/18 23:11 Tranexamic Acid 1,000 mg/ (Sodium Chloride) 110 mls @ 200 mls/hr IV.SIG ONCE LO Stop: 07/25/18 20:00 Cefazolin Sodium/Dextrose (Ancef 2 Gm Premix Inj) 2 gm in 50 mls @ 100 mls/hr IV.SIG Q6H [facility] Stop: 07/26/18 04:29 Tranexamic Acid 1,000 mg/ (Sodium Chloride) 110 mls @ 200 mls/hr IV.SIG ONCE ONE Stop: 07/25/18 16:28 Lactulose (Lactulose Liq) 30 ml PO DAILY PRN PRN Reason: SEVERE CONSITIPATION Metoprolol Tartrate (Lopressor) 12.5 mg PO TID [facility] Last Admin: 07/25/18 13:08 Dose: 12.5 mg Miscellaneous Information (Misc Post-Op Orders (For Pharmacy)) 0 each OTHER STAT STA Stop: 07/25/18 15:57 Morphine Sulfate (Morphine Inj) 2 mg IV.PUSH Q4H PRN PRN Reason: pain 3 - 5 Non-Formulary Medication (Tolterodine) 2 mg PO DAILY [facility] Ondansetron HCl (Zofran Inj) 4 mg IV.PUSH Q6H PRN PRN Reason: NAUSEA OR VOMITING Oxycodone/Acetaminophen (Percocet 5/325 Mg) 1 tab PO Q4H PRN PRN Reason: PAIN LESS THAN 5 ON SCALE Paroxetine HCl (Paxil) 20 mg PO DAILY [facility] Last Admin: 07/25/18 08:34 Dose: Not Given Povidone Iodine (Betadine 5% Antisepsis Kit) 1 applicatio EACH [employer] Stop: 07/27/18 23:11 Sennosides (Senokot) 17.2 mg PO Q12H PRN PRN Reason: Moderate Constipation Sodium Chloride (Ns Flush) 2 ml IV.FLUSH BID [facility] Sodium Chloride (Ns Flush) 2 ml IV.FLUSH PRN PRN PRN Reason: FLUSH AFTER USING IV ACCESS Temazepam (Restoril) 7.5 mg PO HS PRN PRN Reason: INSOMNIA Allergies Allergy/AdvReac Type Severity Reaction Status Date / Time cephalexin Allergy Severe Rash Verified 07/24/18 18:07 diatrizoate meglumine Allergy Severe Anaphylaxis Verified 07/24/18 18:07 gadobenic acid Allergy Severe Anaphylaxis Verified 07/24/18 18:07 gadodiamide Allergy Severe Anaphylaxis Verified 07/24/18 18:07 gadoteridol Allergy Severe Anaphylaxis Verified 07/24/18 18:07 Iodinated Contrast- Oral and Allergy Severe Anaphylaxis Verified 07/24/18 18:07 IV Dye iodixanol Allergy Severe Anaphylaxis Verified 07/24/18 18:07 iohexol Allergy Severe Anaphylaxis Verified 07/24/18 18:07 Sulfa (Sulfonamide Allergy Severe Rash Verified 07/24/18 18:07 Antibiotics) Home Medications Medication Instructions Recorded Confirmed Type amlodipine 5 mg PO DAILY 07/24/18 07/24/18 History aspirin 81 mg PO DAILY 07/24/18 07/24/18 History atorvastatin 80 mg PO HS 07/24/18 07/24/18 History ezetimibe 10 mg PO DAILY 07/24/18 07/24/18 History metoprolol tartrate 12.5 mg PO BID 07/24/18 07/24/18 History paroxetine HCl [Paxil] 20 mg PO DAILY 07/24/18 07/24/18 History tolterodine [Detrol] 2 mg PO DAILY 07/24/18 07/24/18 History Exam Vital signs: Vital Signs 07/24/18 17:58 07/24/18 21:00 07/25/18 00:00 Temperature 97.7 F 98.3 F Pulse Rate 78 90 87 Respiratory Rate 19 18 20 Blood Pressure 154/68 H 171/74 H 147/65 H Pulse Oximetry 98 93 L 92 L 07/25/18 06:00 07/25/18 08:00 07/25/18 10:00 Temperature 97.6 F 98.1 F Pulse Rate 97 H 86 Respiratory Rate 18 13 16 Blood Pressure 168/71 H 144/65 H Pulse Oximetry 91 L 90 L 94 L 07/25/18 12:00 07/25/18 13:13 Temperature 98.4 F Pulse Rate 76 Respiratory Rate 14 16 Blood Pressure 154/67 H Pulse Oximetry 89 L 92 L Intake & Output 07/24/18 07/25/18 07/25/18 18:59 06:59 18:59 Intake Total 0 / 0 1000 / 1000 Balance 0 / 0 1000 / 1000 Weight 49.895 kg 49.8 kg Intake: IV 1000 / 1000 NS Inj 1,000 ML @ 70 mls/hr IV. 1000 / 1000 CONT .[id number] [facility] Rx#:[id number] Oral 0 / 0 Other: # Voids 1 Date of Last Bowel Movement 07/24/18 07/24/18 Weight On Admission 49.89 kg - Constitutional no acute distress Comments: The patient's is at the bedside The patient's nurses at the bedside - Routine HEENT Exam Head: Present: normocephalic, atraumatic Eye: Present: EOMI, PERRL ENT: Present: mucous membranes moist - Routine Neck Exam Present: supple - Routine Abdominal Exam Present: soft - Routine Extremities Exam Comments: Bilateral upper extremity examination is benign. The left lower extremity nontender with excellent range of motion. The right lower extremity with tenderness to palpation about the right hip and a movement of the right hip. No effusion on the knee. The skin is intact. Any movement causes marked pain at the hip calves are soft Homans sign is negative. 2+ distal pulses motor sensory neurologic examination is intact Results - Labs Result Diagrams: 07/24/18 16:15 07/24/18 16:15 Labs: Laboratory Results - last 24 hr 07/24/18 07/24/18 07/24/18 16:15 16:15 16:15 WBC 11.2 H RBC 3.81 L Hgb 12.5 Hct 37.0 MCV 97.2 MCH 32.7 MCHC 33.6 RDW 14.6 Plt Count 214 MPV 8.5 Neut % (Auto) 87.1 H Lymph % (Auto) 8.4 L Charlton % (Auto) 4.0 Eos % (Auto) 0.0 Baso % (Auto) 0.5 Neut # (Auto) 9.8 H Lymph # (Auto) 0.9 L Charlton # (Auto) 0.5 Eos # (Auto) 0.0 Baso # (Auto) 0.1 WBC Differential . Differential Comment Auto diff final PT 9.8 INR 1.0 APTT 25.6 Sodium 139 Potassium 4.2 Chloride 106 Carbon Dioxide 20.6 L Anion Gap 12 BUN 27 H Creatinine 1.08 H Estimated GFR 49 L Random Glucose 100 Calcium 9.5 Total Bilirubin 0.6 AST 21 ALT 19 Alkaline Phosphatase 126 H Total Protein 7.6 Albumin 4.0 Blood Type Antibody Screen 07/25/18 05:40 WBC RBC Hgb Hct MCV MCH MCHC RDW Plt Count MPV Neut % (Auto) Lymph % (Auto) Charlton % (Auto) Eos % (Auto) Baso % (Auto) Neut # (Auto) Lymph # (Auto) Charlton # (Auto) Eos # (Auto) Baso # (Auto) WBC Differential Differential Comment PT INR APTT Sodium Potassium Chloride Carbon Dioxide Anion Gap BUN Creatinine Estimated GFR Random Glucose Calcium Total Bilirubin AST ALT Alkaline Phosphatase Total Protein Albumin Blood Type O Positive Antibody Screen Negative - Diagnostic results Imaging: Impressions Chest X-Ray 07/24/18 17:10 CONCLUSION: No acute cardiopulmonary disease. Outside views pelvis and AP and lateral of the right hip is reviewed which demonstrates that 100% displaced subcapital femoral neck fracture. There is some sclerosis in the femoral neck which is consistent with some type of an old injury. No obvious pathologic condition identified. No significant arthritis in the joint. Assessment and Plan - Problem List (1) Closed fracture of proximal end of right femur Code(s): S72.001A - Fracture of unspecified part of neck of right femur, initial encounter for closed fracture Status: Acute Qualifiers: Encounter type: initial encounter Qualified Code(s): S72.001A - Fracture of unspecified part of neck of right femur, initial encounter for closed fracture - Assessment and Plan Her condition of displaced right femoral neck fracture was discussed and the options of treatment were. I believe that this is all secondary to trauma however did raise the possibility with her and her that there is some type of pathologic condition here and for that reason I recommend an surgery that we send a pathologic specimen this will be performed. I reviewed with her the options of treatment total hip arthroplasty hemiarthroplasty and recommended we press all with hemiarthroplasty. The risks benefits and alternatives to treatment were discussed. Including discussion was risk of infection, nerve damage, blood vessel damage, anesthetic complications, medical complications, the possible need for repeat surgical intervention, possibility mechanical complications like leg length discrepancy dislocating hip. We also talked about the possibility of anesthetic complications medical complications and unforeseen possible complications. All her questions were answered she was depressed, surge surgery informed consent was obtained. We will request that it while qualified election assistant P present for the surgical intervention. A mid level provider in my office, nurse practitioner or PA, may see this patient on a follow up basis and continue to implement the plan including: starting or adjusting medications, injections of muscle, tendons, bursa or joints, cast application, orthotic or brace application, physical therapy, further radiographic studies including X-ray, MRI, CT, ultrasound or bone scan , vascular studies, neurological studies, or other specialist consultations, and proceeding with surgical management as appropriate.
--- NOTE | 2018-07-25 16:21 | P.OP ---
- Preoperative Diagnosis (1) Closed fracture of proximal end of right femur - Postoperative Diagnosis (1) Closed fracture of proximal end of right femur Date of procedure: 07/25/18 Procedure: Right hip hemiarthroplasty for fracture using Ben & Ben size 9 femoral stem with a 45 mm bipolar head and a 1.5 28 mm femoral head Anesthesia: PARAS Surgeon: Chintan Garza MD [employer] Support: Reese Eddy Estimated blood loss (mL): 100 Operation and Findings: The patient was brought to the operating room and placed under general anesthesia placed on a well-padded pegboard with axillary roll in place. The right hip was prepped and draped in usual sterile fashion. IV antibiotics were given. Timeout was completed. A posterior lateral approach was used. The short external rotators and piriformis were taken down and tagged with #2 FiberWire we tagged the posterior capsule and performed a capsulotomy. The fracture site was noted. Deep retractors were placed about the femoral neck. A finishing the cut was made on the femoral neck. These cuts specimens and the femoral head were sent for pathologic analysis to rule out pathologic fracture. We measured the femoral head and it was 45 mm. We proceeded with oxygen nasal then canal finder then sequential broaching size 8 and then size 9. At this point we did a trial reduction. We had excellent range of motion and stability. Leg lengths appear to be equal based on our calculations from the x- rays. These were then the final components selected and placed on the field and impacted in place. The hip was reduced. Irrigate irrigated out with copious amounts of irrigation. We proceeded to close in layers with Vicryl sutures.. We then use Monocryl on the skin and then Steri-Strips and then sterile dressing. A knee immobilizer was applied. The patient was awoken and returned to recovery room in stable condition.
[2018-07-25] MEDS ORDERED: Tranexamic Acid Inj 1,000 MG in Sodium Chlor 0.9% Inj 100 ML IV.SIG ONE (16:45)
--- NOTE | 2018-07-25 17:24 | XR ---
EXAM DATE: 07/25/2018 5:03 PM EDT AGE/SEX: 82 years / Female INDICATIONS: Hip replacement. CLINICAL DATA: This is the patient's initial encounter. Patient reports that signs and symptoms have been present for 1 day and indicates a pain score of Nonresponsive. MEDICAL/SURGICAL HISTORY: None. None. COMPARISON: [facility], XR HIP AP AND LAT, RIGHT, 07/24/2018. . FINDINGS: Single AP view of the right hip demonstrates bipolar arthroplasty hardware in place that is noncement ed. There is adjacent soft tissue air, as expected. Pelvic bones demonstrate no acute finding. CONCLUSION: Expected changes following right hip bipolar arthroplasty, as above. Electronically signed by: Stanley Rolle MD 07/25/2018 5:23 PM EDT
[2018-07-25] MEDS ORDERED: ceFAZolin Inj 2,000 MG in Sodium Chlor 0.9% Inj 80 ML IV.SIG SCH (18:00)
[2018-07-25] MEDS: Clindamycin 600 mg/NS Premix 600 MG/50 ML PIGGYBACK IV.SIG SCH (21:20)
[2018-07-26] MEDS: Clindamycin 600 mg/NS Premix 600 MG/50 ML PIGGYBACK IV.SIG SCH ×2 (02:00→10:25)
[2018-07-26] MEDS: Sod Chloride 0.9% Inj 1,000 ML IV.CONT SCH ×2 (05:00→19:30)
[2018-07-26 06:45] LABS: Hematocrit 30.3 % (35.0-46.0); Hemoglobin 10.2 gm/dL (11.6-15.3); Mean Corpuscular HGB Conc 33.8 % (32.0-36.0); Mean Corpuscular Hemoglobin 33.1 pg (27.0-34.0); Mean Platelet Volume 8.1 fL (7.0-11.0); Platelet Count 169 th/mm3 (150-450); Red Blood Count 3.09 mil/mm3 (4.00-5.30); Red Cell Distribution Width 15.4 % (11.6-17.2); White Blood Count 13.7 th/mm3 (4.0-11.0)
[2018-07-26 07:37] LABS: Calcium 8.7 mg/dL (8.5-10.1); Carbon Dioxide 22.5 meq/L (21.0-32.0)
--- NOTE | 2018-07-26 08:13 | P.PNOP ---
Subjective Interval history: Patient comfortable. Pain controlled. Spouse at bedside. Physical Exam Vital signs: Vital Signs 07/25/18 08:00 07/25/18 10:00 07/25/18 12:00 Temperature 98.1 F 98.4 F Pulse Rate 86 76 Respiratory Rate 13 16 14 Blood Pressure 144/65 H 154/67 H Pulse Oximetry 90 L 94 L 89 L 07/25/18 13:13 07/25/18 16:04 07/25/18 16:15 Temperature 98.0 F Pulse Rate 75 72 Respiratory Rate 16 16 14 Blood Pressure 117/56 L 120/59 L Pulse Oximetry 92 L 91 L 95 07/25/18 16:30 07/25/18 16:45 07/25/18 17:00 Temperature 98.1 F Pulse Rate 70 74 69 Respiratory Rate 14 14 14 Blood Pressure 150/58 H 133/58 L 129/60 Pulse Oximetry 91 L 97 97 07/25/18 17:36 07/25/18 20:00 07/25/18 21:33 Temperature 97.6 F 98.1 F Pulse Rate 71 79 Respiratory Rate 14 18 Blood Pressure 119/53 L 120/59 L Pulse Oximetry 95 97 98 07/26/18 00:00 07/26/18 04:00 Temperature 99.2 F 99.7 F H Pulse Rate 78 88 Respiratory Rate 18 19 Blood Pressure 110/53 L 103/52 L Pulse Oximetry 95 93 L Intake & Output 07/25/18 07/26/18 07/26/18 18:59 06:59 18:59 Intake Total 2910 / 2910 980 / 980 Output Total 300 / 300 Balance 2610 / 2610 980 / 980 Weight 49.8 kg Intake: IV 1110 / 1110 980 / 980 NS Inj 1,000 ML @ 70 mls/hr IV. 1000 / 1000 850 / 850 CONT .[id number] [facility] Rx#:[id number] Cleocin 600 mg/NS Premix 600 mg 100 / 100 In 50 ml @ 100 mls/hr IV.SIG Q6H [facility] Rx#:[id number] LR 1000 mL Inj 1,000 ML @ 30 30 / 30 mls/hr IV.SIG .Q24H LO Rx#: [id number] Cyklokapron Inj 1,000 MG In NS 110 / 110 Inj 100 ML @ 200 mls/hr IV.SIG ONCE LO Rx#:[id number] Oral 100 / 100 Anesthesia Amount 1700 / 1700 Output: Urine 200 / 200 Estimated Blood Loss 100 / 100 Other: # Voids 1 3 Date of Last Bowel Movement 07/24/18 07/23/18 # Bowel Movements 0 Narrative: Right hip dressing C/D/I calves soft negative Eva's NVI Results - Labs CBC & Chem 7: 07/26/18 05:54 07/26/18 05:54 Laboratory Results - last 24 hr 07/26/18 07/26/18 05:54 05:54 WBC 13.7 H RBC 3.09 L Hgb 10.2 L D Hct 30.3 L MCV 98.0 MCH 33.1 MCHC 33.8 RDW 15.4 Plt Count 169 MPV 8.1 Sodium 139 Potassium 4.0 Chloride 106 Carbon Dioxide 22.5 Anion Gap 11 BUN 15 Creatinine 0.89 Estimated GFR 61 L Random Glucose 110 H Calcium 8.7 D - Imaging Impressions Hip X-Ray 07/25/18 00:00 CONCLUSION: Expected changes following right hip bipolar arthroplasty, as above. Assessment and Plan - Problem List (1) Closed fracture of proximal end of right femur Code(s): S72.001A - Fracture of unspecified part of neck of right femur, initial encounter for closed fracture Status: Acute Qualifiers: Encounter type: initial encounter Qualified Code(s): S72.001A - Fracture of unspecified part of neck of right femur, initial encounter for closed fracture - Assessment and Plan POD #1 Right hip hemiarthroplasty for fracture Pain management DVT prophalaxis - Lovenox Physical therapy - WBAT. Hip precautions. Leave dressing in place. If there is significant drainage, remove dressing. Clean with alcohol and apply a new dry dressing daily. Medical management D/C planning - anticipating SNF Monitor
--- NOTE | 2018-07-26 08:55 | P.PNIM ---
Subjective Interval history: Patient seen and examined this morning. Temperature 99.7, pulse 88, respiratory rate 19, blood pressure 103/52, pulse ox 93 on 3 L nasal cannula. At this time patient's main concern is developing pneumonia. She reports that she has been using the incentive spirometer. After having her attempted she was blowing into the machine and not breathing in. Coached her on how to appropriately use incentive spirometer. Patient reports that her pain is well controlled and has no complaints there. Denies any chest pain. Admits to some mild shortness of breath. Denies any nausea or vomiting Physical Exam Vital signs: Vital Signs 07/25/18 10:00 07/25/18 12:00 07/25/18 13:13 Temperature 98.4 F Pulse Rate 76 Respiratory Rate 16 14 16 Blood Pressure 154/67 H Pulse Oximetry 94 L 89 L 92 L 07/25/18 16:04 07/25/18 16:15 07/25/18 16:30 Temperature 98.0 F Pulse Rate 75 72 70 Respiratory Rate 16 14 14 Blood Pressure 117/56 L 120/59 L 150/58 H Pulse Oximetry 91 L 95 91 L 07/25/18 16:45 07/25/18 17:00 07/25/18 17:36 Temperature 98.1 F 97.6 F Pulse Rate 74 69 71 Respiratory Rate 14 14 14 Blood Pressure 133/58 L 129/60 119/53 L Pulse Oximetry 97 97 95 07/25/18 20:00 07/25/18 21:33 07/26/18 00:00 Temperature 98.1 F 99.2 F Pulse Rate 79 78 Respiratory Rate 18 18 Blood Pressure 120/59 L 110/53 L Pulse Oximetry 97 98 95 07/26/18 04:00 Temperature 99.7 F H Pulse Rate 88 Respiratory Rate 19 Blood Pressure 103/52 L Pulse Oximetry 93 L Intake & Output 07/25/18 07/26/18 07/26/18 18:59 06:59 18:59 Intake Total 2910 / 2910 980 / 980 Output Total 300 / 300 Balance 2610 / 2610 980 / 980 Weight 49.8 kg Intake: IV 1110 / 1110 980 / 980 NS Inj 1,000 ML @ 70 mls/hr IV. 1000 / 1000 850 / 850 CONT .[id number] [facility] Rx#:[id number] Cleocin 600 mg/NS Premix 600 mg 100 / 100 In 50 ml @ 100 mls/hr IV.SIG Q6H LO Rx#:[id number] LR 1000 mL Inj 1,000 ML @ 30 30 / 30 mls/hr IV.SIG .Q24H LO Rx#: [id number] Cyklokapron Inj 1,000 MG In NS 110 / 110 Inj 100 ML @ 200 mls/hr IV.SIG ONCE LO Rx#:[id number] Oral 100 / 100 Anesthesia Amount 1700 / 1700 Output: Urine 200 / 200 Estimated Blood Loss 100 / 100 Other: # Voids 1 3 Date of Last Bowel Movement 07/24/18 07/23/18 # Bowel Movements 0 Narrative: GEN: Well-developed, well-nourished elderly patient. No acute distress. MSK: Right hip with dressing clean dry and intact, Soft, negative Homans CV: Regular rate and rhythm soft systolic murmur LUNGS: Clear to auscultation bilaterally. Normal respiratory effort. No wheezes , rales, rhonchi. GI: Soft, nontender, nondistended. No palpable masses. Bowel sounds WNL. EXT: No edema. Able to move all extremities except for her right leg due to pain NEURO/PSYCH: Afocal. Awake, alert, and oriented x3. Appropriate insight and judgment. Results - Labs CBC & Chem 7: 07/26/18 05:54 07/26/18 05:54 Laboratory Results - last 24 hr 07/26/18 07/26/18 05:54 05:54 WBC 13.7 H RBC 3.09 L Hgb 10.2 L D Hct 30.3 L MCV 98.0 MCH 33.1 MCHC 33.8 RDW 15.4 Plt Count 169 MPV 8.1 Sodium 139 Potassium 4.0 Chloride 106 Carbon Dioxide 22.5 Anion Gap 11 BUN 15 Creatinine 0.89 Estimated GFR 61 L Random Glucose 110 H Calcium 8.7 D - Imaging Impressions Hip X-Ray 07/25/18 00:00 CONCLUSION: Expected changes following right hip bipolar arthroplasty, as above. - Procedures 07/25/18: Right hip hemiarthroplasty for fracture Assessment and Plan - Assessment (1) Closed fracture of proximal end of right femur Code(s): S72.001A - Fracture of unspecified part of neck of right femur, initial encounter for closed fracture Status: Acute - Plan 82-year-old female with past medical history significant for hypertension, hyperlipidemia and chronic kidney disease stage III presents the emergency department for the evaluation of right leg pain. 1. Right proximal femur fracture: Status post right hip hemiarthroplasty for fracture Orthopedic surgery consulted, appreciate recommendations Continue pain control DVT prophylaxis with Lovenox Physical therapy:WBAT. Hip precautions Anticipate discharge to SNF 2. Hypertension Continue home metoprolol, amlodipine 3. Hyperlipidemia Continue home atorvastatin 4. Chronic kidney disease Creatinine 1.08 Monitor renal function Code Status: Full code Discharge Planning: Pending clearance by orthopedic surgery, anticipate discharge to shelter facility (1) Closed fracture of proximal end of right femur Qualifiers: Encounter type: initial encounter Qualified Code(s): S72.001A - Fracture of unspecified part of neck of right femur, initial encounter for closed fracture
[2018-07-26] MEDS: Metoprolol Tartrate 25 MG Tablet PO SCH ×3 (10:24→18:30)
[2018-07-26] MEDS: amLODIPine 5 MG Tablet PO SCH (10:24)
[2018-07-26] MEDS: Ezetimibe 10 MG Tablet PO SCH (10:25)
[2018-07-26] MEDS: Enoxaparin Inj 40 MG/0.4 ML Syringe SQ SCH (15:18)
--- NOTE | 2018-07-26 19:01 | XR ---
EXAM DATE: 07/26/2018 6:44 PM EDT AGE/SEX: 82 years / Female INDICATIONS: Rule out pneumonia. CLINICAL DATA: This is the patient's subsequent encounter. Patient reports that signs and symptoms h ave been present for 1 day and indicates a pain score of 0/10. MEDICAL/SURGICAL HISTORY: . . Chronic obstructive pulmonary disease. Hypercholesterolemia. Hype rtension. Emphysema. Irritable bowel syndrome. Depression. Anxiety. Measles. . . Tonsillectomy. Appe ndectomy. Tubal ligation. Bilateral eye surgery. Adenoidectomy. Bilateral carpal tunnel surgery. Left foot neuroma removed. COMPARISON: [facility] [place], CHEST 1V SINGLE AP, 07/24/2018. . FINDINGS: The lungs are hyperaerated. There is diffuse vascular engorgement. There are no consolidating airspac e changes. Heart is mildly enlarged. Bilateral shoulder arthropathy is noted. CONCLUSION: COPD Diffuse vascular prominence suggesting mild vascular congestion No evidence of consolidating airspace disease. Electronically signed by: Jordan Jacobs MD 07/26/2018 6:59 PM EDT
[2018-07-26 19:35] LABS: Bilirubin,Urine Negative (Negative); Clarity,Urine Clear (Clear); Color,Urine Yellow (Yellw/Straw); Glucose,Urine (UA) 50 mg/dL (Negative); Leukocyte Esterase,Urine Negative (Negative); Mucus,Urine Few /lpf (Occasional); Nitrite,Urine Negative (Negative); Specific Gravity,Urine 1.012 (1.002-1.035); Squamous Epithelial Cell,Urine <1 /hpf (0-5)
[2018-07-27] MEDS: Sod Chloride 0.9% Inj 1,000 ML IV.CONT SCH (06:32)
[2018-07-27 07:53] LABS: Hematocrit 30.8 % (35.0-46.0); Hemoglobin 10.3 gm/dL (11.6-15.3); Mean Corpuscular HGB Conc 33.3 % (32.0-36.0); Mean Corpuscular Hemoglobin 32.5 pg (27.0-34.0); Mean Corpuscular Volume 97.7 fL (80.0-100.0); Mean Platelet Volume 8.8 fL (7.0-11.0); Platelet Count 160 th/mm3 (150-450); Red Blood Count 3.16 mil/mm3 (4.00-5.30); Red Cell Distribution Width 14.9 % (11.6-17.2); White Blood Count 12.1 th/mm3 (4.0-11.0)
--- NOTE | 2018-07-27 08:56 | P.PNIM ---
Subjective Interval history: Patient seen and examined this morning. Afebrile vital signs stable. Yesterday were concerns for urinary tract infection. UA was negative for needing cultures. Blood cultures pending but so far no growth. Chest x-ray was negative for atelectasis or pneumonia. Encouraged patient to continue incentive spirometry. Patient denies any chest pain or shortness of breath. Reports that her pain is well controlled. Understands the plan is likely to require prison facility upon discharge. Physical Exam Vital signs: Vital Signs 07/26/18 12:00 07/26/18 15:01 07/26/18 20:00 Temperature 99.0 F 101.0 F H 100.0 F H Pulse Rate 88 85 92 H Respiratory Rate 18 21 19 Blood Pressure 117/58 L 143/63 H 159/84 H Pulse Oximetry 90 L 91 L 93 L 07/26/18 21:43 07/27/18 00:00 07/27/18 04:00 Temperature 98.7 F 98.4 F Pulse Rate 82 94 H Respiratory Rate 18 19 Blood Pressure 111/59 L 160/74 H Pulse Oximetry 95 96 96 07/27/18 08:00 Temperature 99.0 F Pulse Rate 89 Respiratory Rate 20 Blood Pressure 135/61 Pulse Oximetry 95 Intake & Output 07/26/18 07/27/18 07/27/18 18:59 06:59 18:59 Intake Total 2180 / 2180 2160 / 2160 Output Total 100 / 100 Balance 2080 / 2080 2160 / 2160 Weight 49.9 kg Intake: IV 2160 / 2160 NS Inj 1,000 ML @ 70 mls/hr IV. 1999 CONT .[id number] [facility] Rx#:[id number] Oral 480 / 480 Anesthesia Amount 1700 / 1700 Output: Estimated Blood Loss 100 / 100 Other: # Voids 3 4 # Incontinent Voids 1 Date of Last Bowel Movement 07/23/18 07/26/18 Narrative: GEN: Well-developed, well-nourished elderly patient. No acute distress. MSK: Right hip with dressing clean dry and intact, Soft, negative Homans CV: Regular rate and rhythm soft systolic murmur LUNGS: Clear to auscultation bilaterally. Normal respiratory effort. No wheezes , rales, rhonchi. GI: Soft, nontender, nondistended. No palpable masses. Bowel sounds WNL. EXT: No edema. Able to move all extremities except for her right leg. Bandages clean dry and intact NEURO/PSYCH: Afocal. Awake, alert, and oriented x3. Appropriate insight and judgment. Results - Labs CBC & Chem 7: 07/27/18 06:30 07/26/18 05:54 Laboratory Results - last 24 hr 07/26/18 07/27/18 18:04 06:30 WBC 12.1 H RBC 3.16 L Hgb 10.3 L Hct 30.8 L MCV 97.7 MCH 32.5 MCHC 33.3 RDW 14.9 Plt Count 160 MPV 8.8 Urine Color Yellow Urine Clarity Clear Urine pH 6.0 Ur Specific [place] 1.012 Urine Protein 30 H Urine Glucose (UA) 50 Urine Ketones 20 Urine Occult Blood Small H Urine Nitrate Negative Urine Bilirubin Negative Urine Urobilinogen Less than 2 Ur Leukocyte Esterase Negative Urine RBC Less than 1 Urine WBC Less than 1 Ur Squamous Epith Cells <1 Urine Mucus Few H Micro UA Comment Culture not ind Ur Microscopic Review Not Reportable Urine Culture Comments Culture not ind - Imaging Impressions Chest X-Ray 07/26/18 18:15 CONCLUSION: COPD Diffuse vascular prominence suggesting mild vascular congestion No evidence of consolidating airspace disease. - Procedures 07/25/18: Right hip hemiarthroplasty for fracture Assessment and Plan - Assessment (1) Closed fracture of proximal end of right femur Code(s): S72.001A - Fracture of unspecified part of neck of right femur, initial encounter for closed fracture Status: Acute - Plan 82-year-old female with past medical history significant for hypertension, hyperlipidemia and chronic kidney disease stage III presents the emergency department for the evaluation of right leg pain. 1. Right proximal femur fracture: Status post right hip hemiarthroplasty for fracture Orthopedic surgery consulted, appreciate recommendations Continue pain control DVT prophylaxis with Lovenox Physical therapy:WBAT. Hip precautions Anticipate discharge to SNF 2. Fever: 101.0 on 07/26/18 -Chest x-ray performed: Negative for pneumonia or atelectasis -Blood cultures pending -UA performed and cultures not necessary -Encouraged to increase IS use -At this time will continue to monitor 3. Hypertension Continue home metoprolol, amlodipine 4. Hyperlipidemia Continue home atorvastatin 5. Chronic kidney disease Creatinine 1.08 Monitor renal function Discharge Planning: Pending clearance by orthopedic surgery, anticipate discharge to prison facility (1) Closed fracture of proximal end of right femur Qualifiers: Encounter type: initial encounter Qualified Code(s): S72.001A - Fracture of unspecified part of neck of right femur, initial encounter for closed fracture
--- NOTE | 2018-07-27 09:08 | P.PNOP ---
Subjective Interval history: patient comfortable Patient's at bedside Physical Exam Vital signs: Vital Signs 07/26/18 12:00 07/26/18 15:01 07/26/18 20:00 Temperature 99.0 F 101.0 F H 100.0 F H Pulse Rate 88 85 92 H Respiratory Rate 18 21 19 Blood Pressure 117/58 L 143/63 H 159/84 H Pulse Oximetry 90 L 91 L 93 L 07/26/18 21:43 07/27/18 00:00 07/27/18 04:00 Temperature 98.7 F 98.4 F Pulse Rate 82 94 H Respiratory Rate 18 19 Blood Pressure 111/59 L 160/74 H Pulse Oximetry 95 96 96 07/27/18 08:00 Temperature 99.0 F Pulse Rate 89 Respiratory Rate 20 Blood Pressure 135/61 Pulse Oximetry 95 Intake & Output 07/26/18 07/27/18 07/27/18 18:59 06:59 18:59 Intake Total 2180 / 2180 2160 / 2160 Output Total 100 / 100 Balance 2080 / 2080 2160 / 2160 Weight 49.9 kg Intake: IV 2160 / 2160 NS Inj 1,000 ML @ 70 mls/hr IV. 1999 CONT .[id number] LO Rx#:[id number] Oral 480 / 480 Anesthesia Amount 1700 / 1700 Output: Estimated Blood Loss 100 / 100 Other: # Voids 3 4 # Incontinent Voids 1 Date of Last Bowel Movement 07/23/18 07/26/18 Narrative: Right lower extremity Dressing clean dry intact Nontender Negative Eva Motor intact Sensation intact Pulses intact Results - Labs CBC & Chem 7: 07/27/18 06:30 07/26/18 05:54 Laboratory Results - last 24 hr 07/26/18 07/27/18 18:04 06:30 WBC 12.1 H RBC 3.16 L Hgb 10.3 L Hct 30.8 L MCV 97.7 MCH 32.5 MCHC 33.3 RDW 14.9 Plt Count 160 MPV 8.8 Urine Color Yellow Urine Clarity Clear Urine pH 6.0 Ur Specific [place] 1.012 Urine Protein 30 H Urine Glucose (UA) 50 Urine Ketones 20 Urine Occult Blood Small H Urine Nitrate Negative Urine Bilirubin Negative Urine Urobilinogen Less than 2 Ur Leukocyte Esterase Negative Urine RBC Less than 1 Urine WBC Less than 1 Ur Squamous Epith Cells <1 Urine Mucus Few H Micro UA Comment Culture not ind Ur Microscopic Review Not Reportable Urine Culture Comments Culture not ind - Imaging Impressions Chest X-Ray 07/26/18 18:15 CONCLUSION: COPD Diffuse vascular prominence suggesting mild vascular congestion No evidence of consolidating airspace disease. - Procedures 07/25/18: Right hip hemiarthroplasty for fracture Assessment and Plan - Problem List (1) Closed fracture of proximal end of right femur Code(s): S72.001A - Fracture of unspecified part of neck of right femur, initial encounter for closed fracture Status: Acute Qualifiers: Encounter type: subsequent encounter Qualified Code(s): S72.001A - Fracture of unspecified part of neck of right femur, initial encounter for closed fracture Plan: She is now postop day #2 from right hip hemiarthroplasty for fracture Postoperative x-rays looked good. She is weightbearing as tolerated DVT prophylaxis as well as Lovenox She is interested in going to rehabilitation at [place] Continue with daily PT Okay to discharge from OrthoPAT review. Monitor Follow-up in office in 2 weeks with nurse practitioner Reese Eddy - Assessment and Plan POD #2 Right hip hemiarthroplasty for fracture Pain management DVT prophalaxis - Lovenox Physical therapy - WBAT. Hip precautions. Leave dressing in place. If there is significant drainage, remove dressing. Clean with alcohol and apply a new dry dressing daily. Medical management D/C planning - Patient requesting [place] rehabilitation Monitor Okay to discharge from orthopedic viewpoint Follow-up in office in 2 weeks
[2018-07-27] MEDS: Metoprolol Tartrate 25 MG Tablet PO SCH ×2 (10:19→14:20)
[2018-07-27] MEDS: Ezetimibe 10 MG Tablet PO SCH (10:20)
[2018-07-27] MEDS: amLODIPine 5 MG Tablet PO SCH (10:21)
--- NOTE | 2018-07-27 14:18 | P.DS ---
Date of admission: 07/24/18 19:11 Primary care physician: Ebenezer Chapman MD Brief History from admission: 82-year-old female with past medical history significant for hypertension, hyperlipidemia and chronic kidney disease stage III presents the emergency department for the evaluation of right leg pain. The patient reports that approximately 1 month ago she was walking around a corner, lost her balance and fell in a twisting motion. She denies any head trauma or loss of consciousness associated with the event. She reports she walks with a walker and has been doing so for the past month since the fall. She was seen by her primary care physician for persistent right lower extremity pain earlier today and was sent for imaging at [employer] [facility]. The patient's x-rays revealed a right proximal femur fracture. She denies any chest pain or shortness of breath. No abdominal pain. No nausea/vomiting/diarrhea. No fevers/chills. DS: Diagnosis - Discharge Diagnosis (1) Closed fracture of proximal end of right femur Status: Acute DS: Summary Hospital Course: Patient was admitted on 07/24/18 due to right hip fracture. Total hip replacement performed. Patient progressively improved during the hospital. At this time patient has been cleared for discharge to inpatient rehab in [facility]. - Time Spent with Patient Total time spent providing and/or coordinating discharge services: Less than 30 minutes - Quality: VTE Deep Vein Thrombosis/Pulmonary Embolism Present on Admission: No Exam Vital signs: Vital Signs 07/26/18 15:01 07/26/18 20:00 07/26/18 21:43 Temperature 101.0 F H 100.0 F H Pulse Rate 85 92 H Respiratory Rate 21 19 Blood Pressure 143/63 H 159/84 H Pulse Oximetry 91 L 93 L 95 07/27/18 00:00 07/27/18 04:00 07/27/18 08:00 Temperature 98.7 F 98.4 F 99.0 F Pulse Rate 82 94 H 89 Respiratory Rate 18 19 20 Blood Pressure 111/59 L 160/74 H 135/61 Pulse Oximetry 96 96 95 07/27/18 12:00 Temperature 98.7 F Pulse Rate 75 Respiratory Rate 18 Blood Pressure 115/58 L Pulse Oximetry 95 Intake & Output 07/26/18 07/27/18 07/27/18 18:59 06:59 18:59 Intake Total 2180 / 2180 2160 / 2160 Output Total 100 / 100 Balance 2079 Weight 49.9 kg Intake: IV 2159 NS Inj 1,000 ML @ 70 mls/hr IV. 1999 CONT .[id number] LO Rx#:[id number] Oral 480 / 480 Anesthesia Amount 1700 / 1700 Output: Estimated Blood Loss 100 / 100 Other: # Voids 3 4 # Incontinent Voids 1 Date of Last Bowel Movement 07/23/18 07/26/18 Narrative: GEN: Well-developed, well-nourished elderly patient. No acute distress. MSK: Right hip with dressing clean dry and intact, Soft, negative Homans CV: Regular rate and rhythm soft systolic murmur LUNGS: Clear to auscultation bilaterally. Normal respiratory effort. No wheezes , rales, rhonchi. GI: Soft, nontender, nondistended. No palpable masses. Bowel sounds WNL. EXT: No edema. Able to move all extremities except for her right leg. Bandages clean dry and intact NEURO/PSYCH: Afocal. Awake, alert, and oriented x3. Appropriate insight and judgment. Results Procedures completed during hospitalization: 07/25/18: Right hip hemiarthroplasty for fracture Labs on day of discharge: Labs from last 24 hours 07/27/18 07/26/18 06:30 18:04 WBC 12.1 H RBC 3.16 L Hgb 10.3 L Hct 30.8 L MCV 97.7 MCH 32.5 MCHC 33.3 RDW 14.9 Plt Count 160 MPV 8.8 Urine Color Yellow Urine Clarity Clear Urine pH 6.0 Ur Specific [place] 1.012 Urine Protein 30 H Urine Glucose (UA) 50 Urine Ketones 20 Urine Occult Blood Small H Urine Nitrate Negative Urine Bilirubin Negative Urine Urobilinogen Less than 2 Ur Leukocyte Esterase Negative Urine RBC Less than 1 Urine WBC Less than 1 Ur Squamous Epith Cells <1 Urine Mucus Few H Micro UA Comment Culture not ind Ur Microscopic Review Not Reportable Urine Culture Comments Culture not ind - Impressions ITS Impressions Hip X-Ray 07/25/18 00:00 CONCLUSION: Expected changes following right hip bipolar arthroplasty, as above. Chest X-Ray 07/26/18 18:15 CONCLUSION: COPD Diffuse vascular prominence suggesting mild vascular congestion No evidence of consolidating airspace disease. Discharge Plan - Discharge Disposition Patient Disposition: [facility] Rehab Inpatient - Discharge Condition Condition: Good - Discharge Order Discharge Orders: Discharge Order (Routine); Ordered 07/27/18 Ordered By: Herberth Reyes - Discharge Details Anticipated Discharge Date: 07/27/18 - Physicians Team Primary Care Provider: Ebenezer Chapman Attending Provider: Herberth Reyes Other Providers: Chintan Garza MD ; Ari Gomez MD
[2018-07-27] MEDS: Enoxaparin Inj 40 MG/0.4 ML Syringe SQ SCH (14:23)
== END 2018-07-27 17:23 ==
LOC: NEPE 15:14 → NEDA 19:11 → N06 21:56
PROVIDERS: ADMIT Hospitalist; ATTEND Hospitalist

== ENCOUNTER 2018-09-18 16:40 | Inpatient (IN) ==
--- NOTE | 2018-09-18 17:24 | ED ---
HPI General Chief Complaint: Respiratory Symptoms Stated Complaint: SOB/Cough x 2 weeks/worse today Time Seen by Provider: 09/18/18 17:00 Source: patient and family Mode of arrival: ambulatory Limitations: no limitations History of Present Illness Patient is an 82-year-old female, past medical history significant for hypertension, hyperlipidemia, CKD, who presents with complaint of shortness of breath for the last week that worsened yesterday with a cough productive of clear sputum. She has not had any fever nor chills. She denies any leg pain or swelling. She denies chest pain. She also complains of a sore throat but no rhinorrhea. She has had her Pneumovax vaccine but she has not had her influenza vaccine. MD Complaint: Reports shortness of breath and cough Onset (ago): day(s) Severity: moderate Consistency/Duration: constant Relieving factors: nothing Exacerbating factors: nothing Known history of: Reports recurrent pneumonia Treatment prior to arrival: Reports none Related Data Home Medications Medication Instructions Recorded Confirmed amlodipine 5 mg PO DAILY 09/18/18 09/18/18 aspirin [Aspirin Low Dose] 81 mg PO DAILY 09/18/18 09/18/18 atorvastatin 80 mg PO DAILY 09/18/18 09/18/18 lansoprazole [Prevacid] 30 mg PO DAILY 09/18/18 09/18/18 metoprolol tartrate 12.5 mg PO BID 09/18/18 09/18/18 paroxetine HCl 20 mg PO DAILY 09/18/18 09/18/18 temazepam [Restoril] 09/18/18 tolterodine [Detrol] 1 mg PO BID 09/18/18 09/18/18 Allergies Allergy/AdvReac Type Severity Reaction Status Date / Time cephalexin Allergy Severe Rash Verified 09/18/18 16:53 diatrizoate meglumine Allergy Severe Anaphylaxis Verified 09/18/18 16:53 gadobenic acid Allergy Severe Anaphylaxis Verified 09/18/18 16:53 gadodiamide Allergy Severe Anaphylaxis Verified 09/18/18 16:53 gadoteridol Allergy Severe Anaphylaxis Verified 09/18/18 16:53 Iodinated Contrast- Oral and Allergy Severe Anaphylaxis Verified 09/18/18 16:53 IV Dye iodixanol Allergy Severe Anaphylaxis Verified 09/18/18 16:53 iohexol Allergy Severe Anaphylaxis Verified 09/18/18 16:53 Sulfa (Sulfonamide Allergy Severe Rash Verified 09/18/18 16:53 Antibiotics) Review of Systems ROS: all other systems reviewed are negative [facility] Medical History Medical History Anxiety (Acute) Cataract (Acute) Cataract fragments in eye following surgery (Acute) Chronic kidney disease (Acute) Depression (Acute) Diminished hearing (Acute) HTN (hypertension) (Acute) History of high cholesterol (Acute) Hx of primary hypertension (Acute) Hyperlipidemia (Acute) Murmur (Acute) Rectal prolapse (Acute) Surgical History Surgical History H/O right knee surgery (Acute) History of appendectomy (Acute) History of bilateral tubal ligation (Acute) History of carpal tunnel surgery (Acute) History of tonsillectomy (Acute) Status post excision of Zhang's neuroma (Acute) Family History Family History Other Coronary artery disease Social History Social History Substance History: No History of Abuse Second Hand Smoke Exposure: No Smoking Status: Former smoker Tobacco Type: Cigarettes How Often Do You Have a Drink Containing Alcohol: 4 or more times a week Recent Travel in [facility] within the Last 8 Weeks: No Recent Out of Country Travel within the Last 8 Weeks: No Immunization History Tetanus Immunization: <5 Years Exam Narrative Exam Narrative: GENERAL: Well-appearing, elderly female in no acute distress SKIN: Focused skin assessment warm/dry. HEAD: Atraumatic. Normocephalic. EYES: Pupils equal and round. No scleral icterus. No injection or drainage. ENT: No nasal bleeding or discharge. Mucous membranes pink and moist. NECK: Trachea midline. No JVD. CARDIOVASCULAR: Regular rate and rhythm. Murmur. Intact peripheral pulses. RESPIRATORY: Diminished breath sounds in the bases bilaterally with rhonchi GASTROINTESTINAL: Abdomen soft, non-tender, nondistended. Hepatic and splenic margins not palpable. MUSCULOSKELETAL: No obvious deformities. No clubbing. No cyanosis. No edema. NEUROLOGICAL: Awake and alert. No obvious cranial nerve deficits. Motor grossly within normal limits. Normal speech. PSYCHIATRIC: Appropriate mood and affect; insight and judgment normal. Course Initial Documented Vital Signs Temperature 99.5 F 09/18/18 16:54 Pulse Rate 71 09/18/18 16:54 Respiratory Rate 20 09/18/18 16:54 Blood Pressure 184/75 H 09/18/18 16:54 Pulse Oximetry 91 L 09/18/18 16:54 Last Documented Vital Signs Temperature 99.5 F 09/18/18 16:54 Pulse Rate 79 09/18/18 18:19 Respiratory Rate 16 09/18/18 18:19 Blood Pressure 184/75 H 09/18/18 16:54 Pulse Oximetry 96 09/18/18 17:13 Medical Decision Making MDM Narrative Medical decision making narrative: Patient is an 82-year-old female who presents with complaint of shortness of breath and productive cough. She has received several DuoNeb's after which she felt better but still requires an oxygen requirement. She does not wear oxygen at home and has been told she does not have COPD. EKG is without acute ischemic changes. Labs are relatively unremarkable. Chest x-ray is concerning for bibasilar pneumonia versus slight CHF and BNP has been ordered. She has been in the hospital within the last 3 months and thus has been giving antibiotics to cover for HCAP and has been admitted to the hospital. Medical Screen Exam Complete: Yes Emergency Medical Condition: Yes Differential Diagnosis Differential Diagnosis: Differential diagnosis includes but is not limited to pneumonia, pneumothorax, acute coronary syndrome. Medical Records Medical records reviewed: Yes I reviewed the patient's medical records. Lab Data Lab results reviewed: Yes I reviewed the patient's lab results. Result diagrams: 09/18/18 17:20 09/18/18 17:20 Lab Results 09/18/18 09/18/18 09/18/18 Range/Units 17:20 17:20 17:20 CBC w Diff Auto diff final WBC 8.0 (4.0-11.0) th/mm3 RBC 3.86 L (4.00-5.30) mil/mm3 Hgb 12.3 (11.6-15.3) gm/dL Hct 36.4 (35.0-46.0) % MCV 94.3 (80.0-100.0) fL MCH 31.8 (27.0-34.0) pg MCHC 33.7 (32.0-36.0) % RDW 15.2 (11.6-17.2) % Plt Count 316 (150-450) th/mm3 MPV 7.5 (7.0-11.0) fL Neut % (Auto) 66.7 (16.0-70.0) % Lymph % (Auto) 21.3 (9.0-44.0) % [place] % (Auto) 7.3 (0.0-8.0) % Eos % (Auto) 0.2 (0.0-4.0) % Baso % (Auto) 4.5 H (0.0-2.0) % Neut # (Auto) 5.3 (1.8-7.7) th/mm3 Lymph # (Auto) 1.7 (1.0-4.8) th/mm3 [place] # (Auto) 0.6 (0.0-0.9) th/mm3 Eos # (Auto) 0.0 (0.0-0.4) th/mm3 Baso # (Auto) 0.4 H (0.0-0.2) th/mm3 WBC Differential . Differential Comment . Sodium 135 L (136-145) meq/L Potassium 4.2 (3.5-5.1) meq/L Chloride 100 (98-107) meq/L Carbon Dioxide 25.5 (21.0-32.0) meq/L Anion Gap 10 (5-15) meq/L BUN 18 (7-18) mg/dL Creatinine 1.00 (0.50-1.00) mg/dL Estimated GFR 53 L (>89) mL/min Random Glucose 91 (74-106) mg/dL Calcium 9.3 (8.5-10.1) mg/dL Total Bilirubin 0.5 (0.2-1.0) mg/dL AST 22 (15-37) U/L ALT 18 (10-53) U/L Alkaline Phosphatase 148 H (45-117) U/L Troponin I Less than 0.02 L (0.02-0.05) ng/mL B-Natriuretic Peptide 412 H (0-100) pg/mL Total Protein 7.6 (6.4-8.2) g/dL Albumin 3.7 (3.4-5.0) g/dL Imaging Data Attestation: I personally reviewed and interpreted this imaging study as follows : My impression: Bibasilar pneumonia. Radiologist's impression: Chest X-Ray 09/18/18 17:13 CONCLUSION: Small bilateral pleural effusions with mild basilar airspace disease that have developed since July 30. Differential diagnosis includes basilar pneumonia with small parapneumonic effusions or mild congestive heart failure. Discharge Plan Discharge Disposition Patient Disposition: 30 Still Patient Discharge Condition Condition: Stable Discharge Details Diagnosis: Pneumonia, Hypoxia Physicians Team ED Provider: Radha Lynch Primary Care Provider: Ebenezer Chapman Attending Provider: Kevin Marcelo Status ED Status: Admitted Patient
[2018-09-18 17:38] LABS: Baso # (Auto) 0.4 th/mm3 (0.0-0.2); Baso % (Auto) 4.5 % (0.0-2.0); Eos % (Auto) 0.2 % (0.0-4.0); Hematocrit 36.4 % (35.0-46.0); Hemoglobin 12.3 gm/dL (11.6-15.3); Lymph # (Auto) 1.7 th/mm3 (1.0-4.8); Lymph % (Auto) 21.3 % (9.0-44.0); Mean Corpuscular HGB Conc 33.7 % (32.0-36.0); Mean Corpuscular Hemoglobin 31.8 pg (27.0-34.0); Mean Corpuscular Volume 94.3 fL (80.0-100.0); Mean Platelet Volume 7.5 fL (7.0-11.0); Mono # (Auto) 0.6 th/mm3 (0.0-0.9); Mono % (Auto) 7.3 % (0.0-8.0); Neut # (Auto) 5.3 th/mm3 (1.8-7.7); Neut % (Auto) 66.7 % (16.0-70.0); Platelet Count 316 th/mm3 (150-450); Red Blood Count 3.86 mil/mm3 (4.00-5.30); Red Cell Distribution Width 15.2 % (11.6-17.2)
[2018-09-18 17:44] LABS: Chloride 100 meq/L (98-107); Potassium 4.2 meq/L (3.5-5.1); Sodium 135 meq/L (136-145)
[2018-09-18 17:47] LABS: Albumin 3.7 g/dL (3.4-5.0); Anion Gap 10 meq/L (5-15); Calcium 9.3 mg/dL (8.5-10.1); Carbon Dioxide 25.5 meq/L (21.0-32.0); Glucose,Random 91 mg/dL (74-106)
[2018-09-18 17:48] LABS: Blood Urea Nitrogen 18 mg/dL (7-18)
[2018-09-18 17:50] LABS: Alanine Aminotransferase 18 U/L (10-53); Aspartate Aminotransferase 22 U/L (15-37); Glomerular Filtration Rate 53 mL/min (>89)
[2018-09-18 17:52] LABS: Total Protein 7.6 g/dL (6.4-8.2)
[2018-09-18 17:53] LABS: Alkaline Phosphatase 148 U/L (45-117)
--- NOTE | 2018-09-18 18:18 | XR ---
EXAM DATE: 09/18/2018 5:13 PM EDT AGE/SEX: 82 years / Female INDICATIONS: . Cough, chest congestion for 2 weeks CLINICAL DATA: This is the patient's initial encounter. Patient reports that signs and symptoms have been present for 2 weeks and indicates a pain score of 0/10. MEDICAL/SURGICAL HISTORY: . HTN. Hyperlipidemia. Heart murmur. None. COMPARISON: [facility], CHEST 1V SINGLE AP, 07/30/2018. . FINDINGS: Bilateral pleural effusions with mild basilar airspace disease. No pneumothorax. Heart size upper grant its normal. CONCLUSION: Small bilateral pleural effusions with mild basilar airspace disease that have developed since July 30. Differential diagnosis includes basilar pneumonia with small parapneumonic effusions or mild con gestive heart failure. Electronically signed by: Kingsley Houser MD 09/18/2018 6:16 PM EDT
[2018-09-18] MEDS ORDERED: Azithromycin Inj 500 MG in Sodium Chlor 0.9% Inj 250 ML IV.SIG ONE (18:27)
[2018-09-18] MEDS ORDERED: Piperacil/Tazo 3.375 GM Premix 50 ML IV.SIG ONE (18:27)
[2018-09-18] MEDS ORDERED: Vancomycin Inj 1 GM/200 ML PIGGYBACK IV.SIG ONE (18:27)
[2018-09-18] MEDS ORDERED: Vancomycin Consult Pharmacy OTHER PRN (19:07)
[2018-09-18] MEDS ORDERED: Acetaminophen 325 MG Tablet PO PRN (19:09)
[2018-09-18] MEDS ORDERED: Vancomycin Inj 1,000 MG in Sodium Chlor 0.9% Inj 250 ML IV.SIG ONE (20:00)
[2018-09-18] MEDS ORDERED: Metoprolol Tartrate 25 MG Tablet PO SCH (21:00)
[2018-09-18 21:17] LABS: Alanine Aminotransferase 16 U/L (10-53); Albumin 3.5 g/dL (3.4-5.0); Alkaline Phosphatase 133 U/L (45-117); Anion Gap 11 meq/L (5-15); Aspartate Aminotransferase 21 U/L (15-37); Blood Urea Nitrogen 16 mg/dL (7-18); Calcium 8.8 mg/dL (8.5-10.1); Carbon Dioxide 25.1 meq/L (21.0-32.0); Chloride 100 meq/L (98-107); Glomerular Filtration Rate 48 mL/min (>89); Glucose,Random 128 mg/dL (74-106); Potassium 3.3 meq/L (3.5-5.1); Sodium 136 meq/L (136-145)
[2018-09-19] MEDS: Piperacil/Tazo 3.375 GM Premix 50 ML IV.SIG SCH ×3 (02:18→18:03)
--- NOTE | 2018-09-19 08:00 | P.HPIM ---
History of Present Illness Primary Care Physician: Ebenezer Chapman MD Chief Complaint: shortness of breath History of Present Illness: patient is a 82 y/o female with history of COPD, hypertension who presented to ER with shortness of breath. she says that she started to have sob three days ago and it gradually got worse. she had low-grade fever at home and is complaining of dry cough. she doesn't report any recent sick exposure.she had afairly recent hip surgery for which she was admitted to rehab facility. Inpatient Certification: I certify that the inpatient services were ordered in accordance with Medicare regulations governing the order. This includes certification that hospital inpatient services are reasonable and necessary and in the case of services not specified as inpatient-only under 42 CFR 419.22(n), that they are appropriately provided as inpatient services in accordance to with the 2-midnight benchmark under 43 CFR 412.3(e) Estimated Total Length of Stay (Days): 2 Plans for Post Hospital Care: Home Review of Systems All other systems reviewed negative except as stated in HPI [facility] - History History Provided By: Patient - Medical History Medical History: Medical History (Last Reviewed 09/19/18 @ 07:57 by Kevin Marcelo MD) History of high cholesterol Hx of primary hypertension Anxiety Cataract Cataract fragments in eye following surgery Chronic kidney disease Depression Diminished hearing HTN (hypertension) Hyperlipidemia Murmur Rectal prolapse - Surgical History Surgical History: Surgical History (Last Reviewed 09/19/18 @ 07:57 by Kevin Marcelo MD) H/O right knee surgery History of appendectomy History of bilateral tubal ligation History of carpal tunnel surgery History of tonsillectomy Status post excision of Zhang's neuroma - Family History Family History: Family History (Last Reviewed 09/19/18 @ 07:57 by Kevin Marcelo MD) Other Coronary artery disease - Tobacco History Second Hand Smoke Exposure: No Tobacco Use In Past 30 Days: No Smoking Status: Former smoker Tobacco Type: Cigarettes - Alcohol History How Often Do You Have a Drink Containing Alcohol: 4 or more times a week - Substance Use History Substance History: No History of Abuse - Travel History Recent Travel in the [place] Within the Last 8 Weeks: No Recent Travel Out of the Country Within the Last 8 Weeks: No - Immunization History Tetanus Immunization: Unsure Hx Influenza Vaccine This Season: No Medications and Allergies Active Medications: Active Medications Acetaminophen (Tylenol) 650 mg PO Q4H PRN PRN Reason: fever Albuterol (Albuterol Neb (Prn)) 1.25 mg NEB Q2HR NEB PRN PRN Reason: sob Amlodipine Besylate (Norvasc) 5 mg PO DAILY [facility] Aspirin (Ecotrin) 81 mg PO DAILY [facility] Atorvastatin Calcium (Lipitor) 80 mg PO DAILY [facility] Piperacillin/Tazobactam/Dextrose (Zosyn 3.375 Gm Premix) 50 mls @ 100 mls/hr IV.SIG Q8H [facility] Last Infusion: 09/19/18 02:48 Dose: Infused Vancomycin HCl 750 mg/ Sodium (Chloride) 257.5 mls @ 257.5 mls/hr IV.SIG Q24H LO Methylprednisolone Sodium Succinate (Solumedrol Inj) 40 mg IV.PUSH Q8HR [facility] Metoprolol Tartrate (Lopressor) 12.5 mg PO BID [facility] Last Admin: 09/18/18 21:26 Dose: 12.5 mg Miscellaneous Information ([facility] Ordered Lab Info) 0 each OTHER ONCE ONE Stop: 09/21/18 20:46 Pantoprazole Sodium (Protonix) 40 mg PO DAILY [facility] Paroxetine HCl (Paxil) 20 mg PO DAILY [facility] Pharmacy Profile Note (Vancomycin Consult Pharmacy) 1 each OTHER UNSCH PRN PRN Reason: Pharmacy to dose Tolterodine Tartrate (Detrol La) 2 mg PO DAILY [facility] Allergies Allergy/AdvReac Type Severity Reaction Status Date / Time cephalexin Allergy Severe Rash Verified 09/18/18 16:53 diatrizoate meglumine Allergy Severe Anaphylaxis Verified 09/18/18 16:53 gadobenic acid Allergy Severe Anaphylaxis Verified 09/18/18 16:53 gadodiamide Allergy Severe Anaphylaxis Verified 09/18/18 16:53 gadoteridol Allergy Severe Anaphylaxis Verified 09/18/18 16:53 Iodinated Contrast- Oral and Allergy Severe Anaphylaxis Verified 09/18/18 16:53 IV Dye iodixanol Allergy Severe Anaphylaxis Verified 09/18/18 16:53 iohexol Allergy Severe Anaphylaxis Verified 09/18/18 16:53 Sulfa (Sulfonamide Allergy Severe Rash Verified 09/18/18 16:53 Antibiotics) Home Medications Medication Instructions Recorded Confirmed Type amlodipine 5 mg PO DAILY 09/18/18 09/18/18 History aspirin [Aspirin Low Dose] 81 mg PO DAILY 09/18/18 09/18/18 History atorvastatin 80 mg PO DAILY 09/18/18 09/18/18 History lansoprazole [Prevacid] 30 mg PO DAILY 09/18/18 09/18/18 History metoprolol tartrate 12.5 mg PO BID 09/18/18 09/18/18 History paroxetine HCl 20 mg PO DAILY 09/18/18 09/18/18 History temazepam [Restoril] 15 mg PO HS PRN 09/18/18 09/18/18 History tolterodine [Detrol] 1 mg PO BID 09/18/18 09/18/18 History Exam Vital signs: Vital Signs 09/18/18 16:54 09/18/18 17:13 09/18/18 17:30 Temperature 99.5 F Pulse Rate 71 73 Respiratory Rate 20 19 Blood Pressure 184/75 H Pulse Oximetry 91 L 96 09/18/18 18:19 09/18/18 19:48 09/18/18 20:57 Temperature 99.6 F Pulse Rate 79 88 95 H Respiratory Rate 16 18 18 Blood Pressure 124/59 L Pulse Oximetry 94 L 94 L 09/18/18 23:51 Temperature 98.8 F Pulse Rate 78 Respiratory Rate 18 Blood Pressure 136/65 Pulse Oximetry 93 L Intake & Output 09/18/18 09/19/18 09/19/18 18:59 06:59 18:59 Intake Total 1080 / 1080 Output Total 400 / 400 Balance 680 / 680 Weight 50.4 kg 50.7 kg Intake: IV 600 / 600 Azithromycin Inj 500 MG In NS 250 / 250 Inj 250 ML @ 250 mls/hr IV.SIG ONCE ONE Rx#:[id number] Zosyn 3.375 GM Premix 50 ML @ 100 / 100 100 mls/hr IV.SIG Q8H LO Rx#: [id number] Vancomycin Inj 1,000 MG In NS 250 / 250 Inj 250 ML @ 250 mls/hr IV.SIG ONCE ONE Rx#:[id number] Oral 480 / 480 Output: Urine 400 / 400 - Constitutional mild distress - Routine HEENT Exam Eye: Present: PERRL - Routine Neck Exam Present: supple - Routine Respiratory Exam Present: prolonged expiratory phase, wheezes - Routine Cardiovascular Exam Present: RRR - Routine Abdominal Exam Present: soft - Routine Extremities Exam Comments: no pedal edema. - Routine Neurological Exam Present: alert, oriented X3 Results - Labs CBC & Chem 7: 09/18/18 17:20 09/18/18 20:30 Labs: Short CBC 09/18/18 Range/Units 17:20 WBC 8.0 (4.0-11.0) th/mm3 Hgb 12.3 (11.6-15.3) gm/dL Hct 36.4 (35.0-46.0) % Plt Count 316 (150-450) th/mm3 BMP 09/18/18 09/18/18 17:20 20:30 Sodium 135 L 136 Potassium 4.2 3.3 L D Chloride 100 100 Carbon Dioxide 25.5 25.1 BUN 18 16 Creatinine 1.00 1.10 H Calcium 9.3 8.8 Cardiac Enzymes 09/18/18 Range/Units 17:20 Troponin I Less than 0.02 L (0.02-0.05) ng/mL Liver Function 09/18/18 09/18/18 Range/Units 17:20 20:30 Total Bilirubin 0.5 0.5 (0.2-1.0) mg/dL AST 22 21 (15-37) U/L ALT 18 16 (10-53) U/L Alkaline Phosphatase 148 H 133 H (45-117) U/L Albumin 3.7 3.5 (3.4-5.0) g/dL - Imaging Impressions Chest X-Ray 09/18/18 17:13 CONCLUSION: Small bilateral pleural effusions with mild basilar airspace disease that have developed since July 30. Differential diagnosis includes basilar pneumonia with small parapneumonic effusions or mild congestive heart failure. Caprini VTE Risk Assessment Caprini VTE Risk Assessment: Moderate/High Risk (score >= 2) Caprini Risk Assessment Model: Point Value = 1 Point Value = 2 Point Value = 3 Point Value = 5 Age 41-60 Minor surgery BMI > 25 kg/m2 Swollen legs Varicose veins or History of unexplained or recurrent spontaneous Oral contraceptives or hormone replacement Sepsis (< 1 month) Serious lung disease, including pneumonia (< 1 month) Abnormal pulmonary function Acute myocardial infarction Congestive heart failure (< 1 month) History of inflammatory bowel disease Medical patient at bed rest Age 61-74 Arthroscopic surgery Major open surgery (> 45 min) Laparoscopic surgery (> 45 min) Malignancy Confined to bed (> 72 hours) Immobilizing plaster cast Central venous access Age >= 75 History of VTE Family history of VTE Factor V Leiden Prothrombin [id number] Lupus anticoagulant Anticardiolipin antibodies Elevated serum homocysteine Heparin-induced thrombocytopenia Other congenital or acquired thrombophilia Stroke (< 1 month) Elective arthroplasty Hip, pelvis, or leg fracture Acute spinal cord injury (< 1 month) Prophylaxis Regimen: Total Risk Factor Score Risk Level Prophylaxis Regimen 0-1 Low Early ambulation 2 Moderate Order ONE of the following: *Sequential Compression Device (SCD) *Heparin 5000 units SQ BID 3-4 Higher Order ONE of the following medications: *Heparin 5000 units SQ TID *Enoxaparin/Lovenox 40 mg SQ daily (WT < 150 kg, CrCl > 30 mL/min) *Enoxaparin/Lovenox 30 mg SQ daily (WT < 150 kg, CrCl > 10-29 mL/min) *Enoxaparin/Lovenox 30 mg SQ BID (WT < 150 kg, CrCl > 30 mL/min) AND/OR *Sequential Compression Device (SCD) 5 or more Highest Order ONE of the following medications: *Heparin 5000 units SQ TID (Preferred with Epidurals) *Enoxaparin/Lovenox 40 mg SQ daily (WT < 150 kg, CrCl > 30 mL/min) *Enoxaparin/Lovenox 30 mg SQ daily (WT < 150 kg, CrCl > 10-29 mL/min) *Enoxaparin/Lovenox 30 mg SQ BID (WT < 150 kg, CrCl > 30 mL/min) AND *Sequential Compression Device (SCD) Assessment and Plan - Plan A/P - pneumonia/COPD exacerbation will continue with IV antibiotics; will deescalate the antibiotic regimen within the next 24-48 hrs- pending the clinical course and cultures. continue with scheduled and prn neb treatment- will add IV steroids. keep on oxygen to keep O2 sat > 90%. -hypertension; hold BB due to copd exacerbation- resume other meds -consult PT -DVT prophylaxis with subq Heparin. Discussed Condition With: ER physician and the patient. H&P: Quality - VTE Deep Vein Thrombosis/Pulmonary Embolism Present on Admission: No
[2018-09-19] MEDS: amLODIPine 5 MG Tablet PO SCH (08:11)
[2018-09-19] MEDS: Tolterodine Tartrate LA 2 MG Capsule PO SCH (08:11)
[2018-09-19] MEDS: MethylPREDNISolone Sod Succinate Inj 40 MG/ML Vial IV.PUSH SCH ×2 (08:19→17:09)
[2018-09-19] MEDS: Heparin - SQ 10,000 UNITS/ML Vial SQ SCH ×2 (08:20→20:58)
--- NOTE | 2018-09-19 20:17 | ECG ---
Date Performed: 09/18/2018 Time Performed: 18:03:04 PTAGE: 82 years EKG: Sinus rhythm ABNORMAL RHYTHM ECG PREVIOUS TRACING : 07/24/2018 18.16 Since the previous tracing, no significant change noted DOCTOR: Rosemary Lamas Interpretating Date/Time 09/19/2018 20:15:19
[2018-09-19] MEDS: Vancomycin Inj 750 MG in Sodium Chlor 0.9% Inj 250 ML IV.SIG SCH ×2 (20:59→23:23)
[2018-09-20] MEDS: MethylPREDNISolone Sod Succinate Inj 40 MG/ML Vial IV.PUSH SCH ×3 (01:17→17:29)
[2018-09-20] MEDS: Piperacil/Tazo 3.375 GM Premix 50 ML IV.SIG SCH ×3 (04:26→18:38)
[2018-09-20 08:09] LABS: Baso # (Auto) 0.1 th/mm3 (0.0-0.2); Baso % (Auto) 0.7 % (0.0-2.0); Eos % (Auto) 0.1 % (0.0-4.0); Hematocrit 29.6 % (35.0-46.0); Hemoglobin 10.3 gm/dL (11.6-15.3); Lymph # (Auto) 0.6 th/mm3 (1.0-4.8); Lymph % (Auto) 6.6 % (9.0-44.0); Mean Corpuscular HGB Conc 34.9 % (32.0-36.0); Mean Corpuscular Hemoglobin 32.8 pg (27.0-34.0); Mean Corpuscular Volume 94.1 fL (80.0-100.0); Mean Platelet Volume 8.8 fL (7.0-11.0); Mono # (Auto) 0.4 th/mm3 (0.0-0.9); Mono % (Auto) 4.8 % (0.0-8.0); Neut % (Auto) 87.8 % (16.0-70.0); Platelet Count 253 th/mm3 (150-450); Red Blood Count 3.15 mil/mm3 (4.00-5.30); Red Cell Distribution Width 15.6 % (11.6-17.2); White Blood Count 9.1 th/mm3 (4.0-11.0)
[2018-09-20 08:16] LABS: Calcium 8.8 mg/dL (8.5-10.1)
[2018-09-20 08:17] LABS: Carbon Dioxide 26.3 meq/L (21.0-32.0)
[2018-09-20] MEDS: Tolterodine Tartrate LA 2 MG Capsule PO SCH (09:02)
[2018-09-20] MEDS: Heparin - SQ 10,000 UNITS/ML Vial SQ SCH ×2 (09:02→21:14)
[2018-09-20] MEDS: amLODIPine 5 MG Tablet PO SCH (09:02)
--- NOTE | 2018-09-20 10:17 | P.PNIM ---
Subjective Interval history: f/u; pneumonia in no acute distress. no fever. but still with some productive cough. d/w the RN. Physical Exam Vital signs: Vital Signs 09/19/18 12:00 09/19/18 13:06 09/19/18 15:47 Temperature 97.5 F L Pulse Rate 88 74 94 H Respiratory Rate 18 16 20 Blood Pressure 105/53 L Pulse Oximetry 95 91 L 09/19/18 15:49 09/19/18 19:17 09/19/18 20:00 Temperature 98.3 F 97.5 F L Pulse Rate 93 H 95 H 102 H Respiratory Rate 18 16 18 Blood Pressure 126/60 156/71 H Pulse Oximetry 95 94 L 94 L 09/19/18 23:52 09/20/18 00:00 09/20/18 08:00 Temperature 96.7 F L 97.0 F L Pulse Rate 95 H 94 H 91 H Respiratory Rate 16 18 16 Blood Pressure 147/58 H 126/60 Pulse Oximetry 92 L 95 Intake & Output 09/19/18 09/20/18 09/20/18 18:59 06:59 18:59 Intake Total 100 / 100 240 / 240 Output Total 300 / 300 200 / 200 Balance -200 / -200 40 / 40 Weight 50.4 kg Intake: IV 100 / 100 Zosyn 3.375 GM Premix 50 ML @ 100 / 100 100 mls/hr IV.SIG Q8H LO Rx#: [id number] Oral 240 / 240 Output: Urine 300 / 300 200 / 200 Other: # Voids 1 # Bowel Movements 0 - Constitutional mild distress - Routine Respiratory Exam Present: prolonged expiratory phase, wheezes - Routine Cardiovascular Exam Present: RRR - Routine Abdominal Exam Present: soft - Routine Extremities Exam Comments: no pedal edema. - Routine Neurological Exam Present: alert, oriented X3 Results - Labs CBC & Chem 7: 09/20/18 06:15 09/20/18 06:15 Laboratory Results - last 24 hr 09/20/18 09/20/18 06:15 06:15 CBC w Diff Auto diff final WBC 9.1 RBC 3.15 L Hgb 10.3 L D Hct 29.6 L MCV 94.1 MCH 32.8 MCHC 34.9 RDW 15.6 Plt Count 253 MPV 8.8 Neut % (Auto) 87.8 H Lymph % (Auto) 6.6 L [place] % (Auto) 4.8 Eos % (Auto) 0.1 Baso % (Auto) 0.7 Neut # (Auto) 8.0 H Lymph # (Auto) 0.6 L [place] # (Auto) 0.4 Eos # (Auto) 0.0 Baso # (Auto) 0.1 WBC Differential . Differential Comment . Sodium 136 Potassium 4.0 Chloride 100 Carbon Dioxide 26.3 Anion Gap 10 BUN 16 Creatinine 1.10 H Estimated GFR 48 L Random Glucose 170 H Calcium 8.8 Microbiology 09/18/18 18:50 Blood - Peripheral Aerobic Blood Culture - Preliminary No growth in 1 day 09/18/18 18:50 Blood - Peripheral Anaerobic Blood Culture - Preliminary No growth in 1 day 09/18/18 18:50 Blood - Peripheral Aerobic Blood Culture - Preliminary No growth in 1 day 09/18/18 18:50 Blood - Peripheral Anaerobic Blood Culture - Preliminary No growth in 1 day Assessment and Plan - Plan A/P - pneumonia/COPD exacerbation will continue with IV antibiotics; will deescalate the antibiotic regimen within the next 24 hrs- pending the clinical course and cultures. continue with scheduled and prn neb treatment- continue IV steroids. keep on oxygen to keep O2 sat > 90%. -hypertension; hold BB due to copd exacerbation- resume other meds -consulted PT -DVT prophylaxis with subq Heparin. Discharge Planning: home with [facility] in 2-3 days- pending clinical improvement.
[2018-09-20 16:24] LABS: ABG Base Excess -0.4 mmol/L (-2-2); ABG PCO2 32 mmHg (38-42); ABG PO2 64 mmHg (61-120)
[2018-09-20] MEDS: Vancomycin Inj 750 MG in Sodium Chlor 0.9% Inj 250 ML IV.SIG SCH (21:14)
[2018-09-21] MEDS: MethylPREDNISolone Sod Succinate Inj 40 MG/ML Vial IV.PUSH SCH ×3 (00:40→18:09)
[2018-09-21] MEDS: Piperacil/Tazo 3.375 GM Premix 50 ML IV.SIG SCH ×3 (03:19→19:27)
--- NOTE | 2018-09-21 08:25 | P.PNIM ---
Subjective Interval history: f/u; copd exacerbation still with moderate respiratory distress. currently on five liters of oxygen via N/C. denies chest pain. no fever. d/w the RT at the bedside. Physical Exam Vital signs: Vital Signs 09/20/18 10:58 09/20/18 12:00 09/20/18 15:34 Temperature 98.1 F Pulse Rate 107 H 127 H 102 H Respiratory Rate 22 17 20 Blood Pressure 136/62 Pulse Oximetry 92 L 09/20/18 15:35 09/20/18 15:50 09/20/18 19:15 Temperature 98.0 F Pulse Rate 106 H 96 H Respiratory Rate 17 18 Blood Pressure 140/65 Pulse Oximetry 88 L 92 L 93 L 09/20/18 20:00 09/21/18 00:00 09/21/18 03:26 Temperature 96.5 F L 97.3 F L Pulse Rate 105 H 105 H 84 Respiratory Rate 18 18 18 Blood Pressure 124/71 108/54 L Pulse Oximetry 94 L 94 L 09/21/18 08:00 Temperature Pulse Rate 105 H Respiratory Rate 22 Blood Pressure Pulse Oximetry 96 Intake & Output 09/20/18 09/21/18 09/21/18 18:59 06:59 18:59 Intake Total 1010 / 1010 557.5 / 557.5 Output Total 1800 / 1800 1000 / 1000 Balance -790 / -790 -442.5 / -442.5 Weight 45.8 kg Intake: IV 50 / 50 357.5 / 357.5 Zosyn 3.375 GM Premix 50 ML @ 50 / 50 100 / 100 100 mls/hr IV.SIG Q8H LO Rx#: [id number] Vancomycin Inj 750 MG In NS Inj 257.5 / 257.5 250 ML @ 257.5 mls/hr IV.SIG Q24H LO Rx#:[id number] Oral 960 / 960 200 / 200 Output: Urine 1800 / 1800 1000 / 1000 Other: # Bowel Movements 0 - Constitutional moderate distress - Routine Respiratory Exam Present: prolonged expiratory phase, wheezes - Routine Cardiovascular Exam Present: RRR - Routine Abdominal Exam Present: soft - Routine Extremities Exam Comments: no pedal edema. - Routine Neurological Exam Present: alert, oriented X3 Results - Labs CBC & Chem 7: 09/20/18 06:15 09/20/18 06:15 Laboratory Results - last 24 hr 09/20/18 16:16 Puncture Site Right radial Patient Temperature 98.6 O2 Saturation 91 ABG pH 7.47 H ABG pCO2 32 L ABG pO2 64 ABG HCO3 23 ABG O2 Content 13.5 ABG Base Excess -0.4 ABG Methemoglobin 0.6 Micheal Test Present Hemoglobin 10.5 L Carboxyhemoglobin 1.5 O2 Delivery Device Nasal cannula Liter Flow 5.00 Critical Value No Microbiology 09/18/18 18:50 Blood - Peripheral Aerobic Blood Culture - Preliminary No growth in 2 days 09/18/18 18:50 Blood - Peripheral Anaerobic Blood Culture - Preliminary No growth in 2 days 09/18/18 18:50 Blood - Peripheral Aerobic Blood Culture - Preliminary No growth in 2 days 09/18/18 18:50 Blood - Peripheral Anaerobic Blood Culture - Preliminary No growth in 2 days Assessment and Plan - Plan A/P - pneumonia/COPD exacerbation will continue with IV antibiotics. will follow the sputum culture and deescalate the antibiotic regimen accordingly. continue with scheduled and prn neb treatment- continue IV steroids. keep on oxygen to keep O2 sat > 90%. repeat CXR today and obtain echo- pulmonary consulted. -hypertension; hold BB due to copd exacerbation- resumed other meds -consulted PT -DVT prophylaxis with subq Heparin. Code Status: DNR status per my d/w the patient. Discharge Planning: not ready for discharge- awaiting clinical improvement.
--- NOTE | 2018-09-21 09:50 | XR ---
EXAM DATE: 09/21/2018 8:00 AM EDT AGE/SEX: 82 years / Female INDICATIONS: . Short of Breath CLINICAL DATA: This is the patient's subsequent encounter. Patient reports that signs and symptoms h ave been present for 4 - 6 days and indicates a pain score of 0/10. MEDICAL/SURGICAL HISTORY: . HTN. Hyperlipidemia. Heart murmur. None. COMPARISON: [facility], CHEST 2V PA&LAT, 09/18/2018. . FINDINGS: Today's exam is compared to the prior study. There continue to be small bilateral pleural effusions w ith some mild bibasal infiltrates.. Otherwise, the rest the lung maciel remain clear. No new infiltra alycia are demonstrated. Heart size is stable. The bony structures are stable. There is no evidence of p neumothorax. CONCLUSION: Stable small bilateral effusions with mild bibasal infiltrates compared to the prior examination. Electronically signed by: Rajesh Rojas MD 09/21/2018 9:49 AM EDT
[2018-09-21] MEDS: Heparin - SQ 10,000 UNITS/ML Vial SQ SCH ×2 (09:58→20:42)
[2018-09-21] MEDS: Tolterodine Tartrate LA 2 MG Capsule PO SCH (10:01)
[2018-09-21] MEDS: amLODIPine 5 MG Tablet PO SCH (10:03)
--- NOTE | 2018-09-21 12:14 | MB ---
cc: Rigoberto Franklin MD DATE: 09/21/2018 REASON FOR CONSULTATION: COPD exacerbation, pneumonia. HISTORY OF PRESENT ILLNESS: Mrs. Patricia is an 82-year-old female with a known history of COPD, who presents with increasing shortness of breath, cough, no expectoration, felt she did have a low-grade temperature at home, became progressively worse, unresponsive to home therapy, comes to the emergency room where she was hospitalized for COPD exacerbation and suggestion of bibasilar pneumonia and small pleural effusion by chest x-ray. PAST MEDICAL HISTORY: COPD, hypertension, hyperlipidemia, chronic kidney disease, mood disorder, namely depression. PAST SURGICAL HISTORY: She did have right knee surgery in the past, carpal tunnel surgery, tubal ligation, appendectomy years ago and removal of a Zhang neuroma. FAMILY HISTORY: Noncontributory. SOCIAL HISTORY: He used to smoke a pack a day; however, did not smoke since 1992. Drinks alcohol socially, does not use drugs. MEDICATIONS: Include: 1. Albuterol nebulizer. 2. Pipracil. 3. Vancomycin. 4. Amlodipine. 5. Aspirin. 6. Atorvastatin. 7. Solu-Medrol IV at present. 8. Paroxetine. 9. Pantoprazole. 10. Detrol. ALLERGIES: CEPHALEXIN, DIATRIZOATE, GADOBENIC ACID. REVIEW OF SYSTEMS: A 12-point review of systems as per HPI and past history, otherwise negative. PHYSICAL EXAMINATION: GENERAL: The patient is alert. VITAL SIGNS: Temperature 98, pulse 78, respirations 18, blood pressure 110/60, oxygen saturation 96% on 3 liters oxygen nasal cannula. HEENT: Unremarkable. Eyes without icterus. NECK: Without adenopathy or thyroid enlargement. CHEST: Scattered wheezes, rhonchi bilaterally, more so at bases. ABDOMEN: Lax, bowel sounds audible. EXTREMITIES: No clubbing, cyanosis or edema. LABORATORY DATA: White count 9000, hemoglobin 10, hematocrit 29, platelets 253,000. Sodium 136, potassium 4.0, BUN 10, creatinine 16. ABG 09/20/2018, pH 7.47, pCO2 of 32 and a pO2 of 64 on 5 liters oxygen via nasal cannula. Chest x-ray, bibasilar atelectatic change and/or pneumonia, small bibasilar effusions. IMPRESSION: 1. Chronic obstructive pulmonary disease exacerbation. 2. Pneumonia. 3. Question congestive heart failure. 4. Hypertension. 5. Hyperlipidemia. PLAN: The patient will be maintained on oxygen therapy as needed. Antibiotic therapy has been initiated and appropriately so. IV steroid therapy will be continued and tapered as tolerated. We will check pulmonary function as well as echocardiogram to assess left ventricular performance, follow the patient's course along with you and depending on progress, proceed further. I do thank you for asking me to partake in Mrs. Patricia's care. Rigoberto Franklin MD WWW/sv/ll , 09:48 AM , 09:57 AM
--- NOTE | 2018-09-21 13:18 | ECHRPT ---
Indication: Heart Failure CONCLUSIONS Normal left ventricular size. Wall thickness is normal. The left ventricular systolic function is normal with an estimated ejection fraction in the range of 55-60%. Mild mitral valve regurgitation. Mitral annular calcification is present. Aortic valve sclerosis is present. [id number] aortic valve regurgitation. Mild aortic valve stenosis. There is moderate tricuspid regurgitation. The estimated pulmonary arterial pressure is 70 mmHg. The inferior vena cava (IVC) is normal in size. There is a small pericardial effusion present. A left sided pleural effusion is present. BP: / HR: Rhythm: MEASUREMENTS (Male / Female) Normal Values Technical Quality: 2D ECHO LV Diastolic Diameter PLAX 3.9 cm 4.2 - 5.9 / 3.9 - 5.3 cm LV Systolic Diameter PLAX 2.7 cm IVS Diastolic Thickness 0.9 cm 0.6 - 1.0 / 0.6 - 0.9 cm LVPW Diastolic Thickness 0.9 cm 0.6 - 1.0 / 0.6 - 0.9 cm LV Relative Wall Thickness 0.5 RV Internal Dim ED PLAX 2.6 cm LVOT Diameter 2.0 cm Aortic Root Diameter 2.2 cm LA Systolic Diameter LX 3.8 cm 3.0 - 4.0 / 2.7 - 3.8 cm DOPPLER AV Peak Velocity 278.0 cm/s AV Peak Gradient 30.9 mmHg AV Mean Gradient 16.0 mmHg AV Velocity Time Integral 52.0 cm AI Peak Velocity 358.0 cm/s AI Peak Gradient 51.3 mmHg AI Pressure Half Time 280.0 ms LVOT Peak Velocity 125.5 cm/s LVOT Peak Gradient 6.3 mmHg LVOT Velocity Time Integral 22.8 cm AV Area Cont Eq vti 1.4 cm AV Area Cont Eq pk 1.4 cm MV Peak Velocity 174.0 cm/s MV Peak Gradient 12.1 mmHg MV Mean Velocity 131.0 cm/s MV Mean Gradient 7.0 mmHg Mitral E Point Velocity 165.0 cm/s Mitral A Point Velocity 114.0 cm/s Mitral E to A Ratio 1.4 LV E' Lateral Velocity 6.2 cm/s Mitral E to LV E' Lateral Ratio 26.4 LV E' Septal Velocity 7.1 cm/s Mitral E to LV E' Septal Ratio 23.2 TR Peak Velocity 372.0 cm/s TR Peak Gradient 55.4 mmHg Right Atrial Pressure 15.0 mmHg Pulmonary Artery Systolic Pressu 70.4 mmHg Right Ventricular Systolic Press 70.4 mmHg PV Peak Velocity 191.0 cm/s PV Peak Gradient 14.6 mmHg FINDINGS LEFT VENTRICLE Normal left ventricular size. Wall thickness is normal. The left ventricular systolic function is normal with an estimated ejection fraction in the range of 55-60%. RIGHT VENTRICLE Normal right ventricular size and systolic function. LEFT ATRIUM The left atrial size is normal. RIGHT ATRIUM The right atrial size is normal. ATRIAL SEPTUM Normal atrial septal thickness without atrial level shunting by limited color doppler interrogation. AORTA The aortic root and proximal ascending aorta are normal in size on limited imaging. MITRAL VALVE Mild mitral valve regurgitation. Mitral annular calcification is present. AORTIC VALVE Trileaflet aortic valve. Aortic valve sclerosis is present. [id number] aortic valve regurgitation. Mild aortic valve stenosis. TRICUSPID VALVE There is moderate tricuspid regurgitation. The estimated pulmonary arterial pressure is 70 mmHg. PULMONARY VALVE No pulmonary valve regurgitation or stenosis. VESSELS The inferior vena cava (IVC) is normal in size. PERICARDIUM There is a small pericardial effusion present. A left sided pleural effusion is present. Alonzo Jimenez MD, FACC (Electronically Signed) Final Date:21 September 2018 13:17
[2018-09-21] MEDS ORDERED: Pharmacy Ordered Lab Info OTHER ONE (20:45)
[2018-09-21] MEDS: guaiFENesin/Dextromethorphan 200 MG/20 MG 10 ML UDC PO PRN (22:43)
[2018-09-21] MEDS: Vancomycin Inj 750 MG in Sodium Chlor 0.9% Inj 250 ML IV.SIG SCH (23:47)
[2018-09-22] MEDS: MethylPREDNISolone Sod Succinate Inj 40 MG/ML Vial IV.PUSH SCH ×4 (00:40→22:51)
[2018-09-22] MEDS: Piperacil/Tazo 3.375 GM Premix 50 ML IV.SIG SCH (03:53)
--- NOTE | 2018-09-22 10:08 | P.PNIM ---
Subjective Interval history: f/u; copd exacerbation looks and feels much more comfortable today. sob has improved. still with occasional cough. no fever. d/w the RN. Physical Exam Vital signs: Vital Signs 09/21/18 12:00 09/21/18 13:13 09/21/18 15:52 Temperature 98.5 F Pulse Rate 104 H 114 H 101 H Respiratory Rate 22 22 20 Blood Pressure 145/65 H Pulse Oximetry 95 93 L 94 L 09/21/18 16:00 09/21/18 20:00 09/21/18 20:12 Temperature 97.5 F L 97.3 F L Pulse Rate 105 H 105 H 95 H Respiratory Rate 22 20 18 Blood Pressure 127/62 155/68 H Pulse Oximetry 96 95 95 09/22/18 00:00 09/22/18 00:25 09/22/18 03:35 Temperature 97.9 F Pulse Rate 103 H 104 H 94 H Respiratory Rate 18 18 16 Blood Pressure 127/64 Pulse Oximetry 93 L 09/22/18 08:52 Temperature 97.6 F Pulse Rate 100 H Respiratory Rate 20 Blood Pressure 131/67 Pulse Oximetry 95 Intake & Output 09/21/18 09/22/18 09/22/18 18:59 06:59 18:59 Intake Total 745 / 745 837.5 / 837.5 Output Total 502 / 502 200 / 200 Balance 243 / 243 637.5 / 637.5 Weight 51.2 kg Intake: IV 25 / 25 357.5 / 357.5 Zosyn 3.375 GM Premix 50 ML @ 25 / 25 100 / 100 100 mls/hr IV.SIG Q8H LO Rx#: [id number] Vancomycin Inj 750 MG In NS Inj 257.5 / 257.5 250 ML @ 257.5 mls/hr IV.SIG Q24H LO Rx#:[id number] Oral 720 / 720 480 / 480 Output: Urine 500 / 500 200 / 200 Stool 2 / 2 Other: # Urine Diapers 2 Date of Last Bowel Movement 09/21/18 09/21/18 - Constitutional no acute distress - Routine Respiratory Exam Present: CTA bilaterally Comments: wheezing has much improved. - Routine Cardiovascular Exam Present: RRR - Routine Abdominal Exam Present: soft - Routine Extremities Exam Comments: no pedal edema. - Routine Neurological Exam Present: alert, oriented X3 Results - Labs CBC & Chem 7: 09/20/18 06:15 09/20/18 06:15 Laboratory Results - last 24 hr 09/21/18 20:35 Vancomycin Trough 10.2 H Microbiology 09/20/18 11:30 Sputum - Expectorated Sputum Gram Stain - Final 09/20/18 11:30 Sputum - Expectorated Sputum Sputum Culture - Final Heavy growth normal respiratory jorden 09/18/18 18:50 Blood - Peripheral Aerobic Blood Culture - Preliminary No growth in 3 days 09/18/18 18:50 Blood - Peripheral Anaerobic Blood Culture - Preliminary No growth in 3 days 09/18/18 18:50 Blood - Peripheral Aerobic Blood Culture - Preliminary No growth in 3 days 09/18/18 18:50 Blood - Peripheral Anaerobic Blood Culture - Preliminary No growth in 3 days Assessment and Plan - Plan A/P - pneumonia/COPD exacerbation- improving. sputum cultures with normal respiratory jorden; will change the broad- spectrum IV antibiotics to Levaquin. continue with scheduled and prn neb treatment- continue IV steroids; will start to taper down. keep on oxygen to keep O2 sat > 90%. echo with EF 55%/ mild aortic stenosis and mild pericardial effusion. pulmonary consult appreciated. -hypertension; hold BB due to copd exacerbation- resumed other meds -consulted PT -DVT prophylaxis with subq Heparin. Discharge Planning: home with [facility] within the next 1-2 days. needs walk test before discharge.
[2018-09-22] MEDS: amLODIPine 5 MG Tablet PO SCH (10:31)
[2018-09-22] MEDS: Tolterodine Tartrate LA 2 MG Capsule PO SCH (10:32)
[2018-09-22] MEDS: Heparin - SQ 10,000 UNITS/ML Vial SQ SCH ×2 (10:32→20:32)
[2018-09-22] MEDS: levoFLOXacin 500 MG Tablet PO SCH (12:55)
[2018-09-22] MEDS: guaiFENesin/Dextromethorphan 200 MG/20 MG 10 ML UDC PO PRN (22:56)
--- NOTE | 2018-09-23 07:57 | P.PNIM ---
Subjective Interval history: f/u; copd exacerbation in no acute distress. but she says that she had a bad night because of the cough. no fever. Physical Exam Vital signs: Vital Signs 09/22/18 08:00 09/22/18 08:52 09/22/18 12:35 Temperature 97.6 F 97.9 F Pulse Rate 100 H 112 H Respiratory Rate 20 20 Blood Pressure 131/67 155/87 H Pulse Oximetry 95 95 98 09/22/18 14:37 09/22/18 14:40 09/22/18 18:07 Temperature 97.8 F Pulse Rate 102 H 106 H Respiratory Rate 19 18 Blood Pressure 121/63 Pulse Oximetry 98 98 09/22/18 20:00 09/22/18 20:10 09/23/18 00:00 Temperature 98.3 F 97.9 F Pulse Rate 80 124 H 107 H Respiratory Rate 18 18 18 Blood Pressure 153/64 H 139/89 Pulse Oximetry 90 L 96 94 L 09/23/18 07:21 09/23/18 07:22 Temperature Pulse Rate 101 H Respiratory Rate 20 Blood Pressure Pulse Oximetry 94 L Intake & Output 09/22/18 09/23/18 09/23/18 18:59 06:59 18:59 Intake Total 800 / 800 250 / 250 Output Total 700 / 700 Balance 800 / 800 -450 / -450 Weight 50.3 kg Intake: Oral 800 / 800 250 / 250 Output: Urine 700 / 700 Other: # Voids 2 - Constitutional mild distress - Routine Respiratory Exam Present: prolonged expiratory phase, wheezes - Routine Cardiovascular Exam Present: RRR - Routine Abdominal Exam Present: soft - Routine Extremities Exam Comments: no pedal edema. - Routine Neurological Exam Present: alert, oriented X3 Results - Labs CBC & Chem 7: 09/20/18 06:15 09/20/18 06:15 Microbiology 09/18/18 18:50 Blood - Peripheral Aerobic Blood Culture - Preliminary No growth in 4 days 09/18/18 18:50 Blood - Peripheral Anaerobic Blood Culture - Preliminary No growth in 4 days 09/18/18 18:50 Blood - Peripheral Aerobic Blood Culture - Preliminary No growth in 4 days 09/18/18 18:50 Blood - Peripheral Anaerobic Blood Culture - Preliminary No growth in 4 days 09/20/18 11:30 Sputum - Expectorated Sputum Gram Stain - Final 10/21/18 11:30 Sputum - Expectorated Sputum Sputum Culture - Final Heavy growth normal respiratory jorden Assessment and Plan - Assessment (1) COPD (chronic obstructive pulmonary disease) Code(s): J44.9 - Chronic obstructive pulmonary disease, unspecified Status: Chronic - Plan A/P - pneumonia/COPD exacerbation- improving slowly- sputum cultures with normal respiratory jorden; continue oral antibiotic. continue with scheduled and prn neb treatment- continue IV steroids. keep on oxygen to keep O2 sat > 90%. echo with EF 55%/ mild aortic stenosis and mild pericardial effusion. pulmonary consult appreciated. walk test today. -hypertension; hold BB due to copd exacerbation- resumed other meds -consulted PT -DVT prophylaxis with subq Heparin. Discharge Planning: still with some sob/ cough and wheezing; home with [facility] within the next 1-2 days. walk test today.
[2018-09-23] MEDS: Tolterodine Tartrate LA 2 MG Capsule PO SCH (10:09)
[2018-09-23] MEDS: amLODIPine 5 MG Tablet PO SCH (10:09)
[2018-09-23] MEDS: Heparin - SQ 10,000 UNITS/ML Vial SQ SCH ×2 (10:10→20:08)
[2018-09-23] MEDS: guaiFENesin/Dextromethorphan 200 MG/20 MG 10 ML UDC PO PRN ×3 (10:12→23:11)
[2018-09-23] MEDS: levoFLOXacin 500 MG Tablet PO SCH (10:17)
[2018-09-23] MEDS: MethylPREDNISolone Sod Succinate Inj 40 MG/ML Vial IV.PUSH SCH ×2 (10:17→22:42)
--- NOTE | 2018-09-23 14:17 | P.DCO ---
- Physical Therapy Order: Evaluate and treat - Home Health Nursing Order: Medical education, Signs/symptoms of disease process, Medication education-adverse effect, Nursing assessment with vital signs - Case Management Consult Yes - Certification I have seen patient Keke Patricia on 09/23/18. My clinical findings support the need for the requested home health care services because: Patient has SOB I certify that my clinical findings support that this patient is homebound because: Hx COPD - exertion dyspnea/weakness
--- NOTE | 2018-09-24 07:41 | P.PNIM ---
Subjective Interval history: f/u; copd exacerbation overall feels and looks better. still has some cough. no fever. wants to go home. Physical Exam Vital signs: Vital Signs 09/23/18 08:00 09/23/18 08:45 09/23/18 12:00 Temperature 97.9 F 96.3 F L Pulse Rate 112 H 115 H Respiratory Rate 16 16 Blood Pressure 161/78 H 163/98 H Pulse Oximetry 94 L 95 Pulse Oximetry [Exertion on Room Air] 94 L Pulse Oximetry [Resting on Room Air] 92 L 09/23/18 14:18 09/23/18 16:00 09/23/18 19:48 Temperature 97.0 F L Pulse Rate 108 H 113 H 113 H Respiratory Rate 18 16 16 Blood Pressure 158/98 H Pulse Oximetry 97 95 96 Pulse Oximetry [Exertion on Room Air] Pulse Oximetry [Resting on Room Air] 09/23/18 20:00 09/24/18 00:00 09/24/18 07:16 Temperature 97.2 F L 97.2 F L Pulse Rate 115 H 100 H 113 H Respiratory Rate 20 20 20 Blood Pressure 143/74 H 135/77 Pulse Oximetry 94 L 93 L 93 L Pulse Oximetry [Exertion on Room Air] Pulse Oximetry [Resting on Room Air] Intake & Output 09/23/18 09/24/18 09/24/18 18:59 06:59 18:59 Intake Total 720 / 720 120 / 120 Output Total 400 / 400 Balance 720 / 720 -280 / -280 Weight 48.3 kg Intake: Oral 720 / 720 120 / 120 Output: Urine 400 / 400 Other: # Voids 5 2 # Bowel Movements 0 - Constitutional no acute distress - Routine Respiratory Exam Present: CTA bilaterally (minimal wheezing.) - Routine Cardiovascular Exam Present: RRR - Routine Abdominal Exam Present: soft - Routine Extremities Exam Comments: no pedal edema. - Routine Neurological Exam Present: alert, oriented X3 Results - Labs CBC & Chem 7: 09/20/18 06:15 09/20/18 06:15 Microbiology 09/18/18 18:50 Blood - Peripheral Aerobic Blood Culture - Final No growth in 5 days 09/18/18 18:50 Blood - Peripheral Anaerobic Blood Culture - Final No growth in 5 days 09/18/18 18:50 Blood - Peripheral Aerobic Blood Culture - Final No growth in 5 days 09/18/18 18:50 Blood - Peripheral Anaerobic Blood Culture - Final No growth in 5 days - Procedures none. Assessment and Plan - Assessment (1) COPD (chronic obstructive pulmonary disease) Code(s): J44.9 - Chronic obstructive pulmonary disease, unspecified Status: Chronic - Plan A/P - pneumonia/COPD exacerbation- improved. sputum cultures with normal respiratory jorden; continue oral antibiotic. continue with scheduled and prn neb treatment- continue IV steroids; this will be switched to prednisone upon discharge. echo with EF 55%/ mild aortic stenosis and mild pericardial effusion. pulmonary consult appreciated. walk test done and she passed. -hypertension; resume home meds upon discharge. -consulted PT -DVT prophylaxis with subq Heparin. Discharge Planning: dc home with [facility] this afternoon. see med list. f/u; pcp and pulmonary. d/w the patient and RN.
--- NOTE | 2018-09-24 07:43 | P.DS ---
Date of admission: 09/18/18 19:01 Primary care physician: Ebenezer Chapman MD Brief History from admission: patient is a 82 y/o female with history of COPD, hypertension who presented to ER with shortness of breath. she says that she started to have sob three days ago and it gradually got worse. she had low-grade fever at home and is complaining of dry cough. she doesn't report any recent sick exposure.she had afairly recent hip surgery for which she was admitted to rehab facility. DS: Diagnosis - Discharge Diagnosis (1) COPD (chronic obstructive pulmonary disease) Status: Chronic DS: Medications - Discharge Medications Prescriptions: albuterol sulfate [Ventolin HFA] 2 puff INHALATION Q6H PRN #1 g PRN Reason: sob dextromethorphan-guaifenesin 10 ml PO Q6H PRN 5 Days ml PRN Reason: cough ipratropium-albuterol 1 amp NEB Q6HR WHILE AWAKE NEB 30 Days ml levofloxacin 500 mg PO DAILY@1100 5 Days tab prednisone 5 mg PO DIRECTED 10 Days tab DS: Summary Hospital Course: patient was admitted with COPD exacerbation. she was treated with IV sterids, antibiotic and neb treatment. she was seen by pulmonary. her condition improved and she passed the walk test. she will be discharged home with [facility] and follow- up with her pcp and pulmonary. - Time Spent with Patient Total time spent providing and/or coordinating discharge services: Less than 30 minutes - Quality: VTE Deep Vein Thrombosis/Pulmonary Embolism Present on Admission: No Exam Vital signs: Vital Signs 09/23/18 08:00 09/23/18 08:45 09/23/18 12:00 Temperature 97.9 F 96.3 F L Pulse Rate 112 H 115 H Respiratory Rate 16 16 Blood Pressure 161/78 H 163/98 H Pulse Oximetry 94 L 95 Pulse Oximetry [Exertion on Room Air] 94 L Pulse Oximetry [Resting on Room Air] 92 L 09/23/18 14:18 09/23/18 16:00 09/23/18 19:48 Temperature 97.0 F L Pulse Rate 108 H 113 H 113 H Respiratory Rate 18 16 16 Blood Pressure 158/98 H Pulse Oximetry 97 95 96 Pulse Oximetry [Exertion on Room Air] Pulse Oximetry [Resting on Room Air] 09/23/18 20:00 09/24/18 00:00 09/24/18 07:16 Temperature 97.2 F L 97.2 F L Pulse Rate 115 H 100 H 113 H Respiratory Rate 20 20 20 Blood Pressure 143/74 H 135/77 Pulse Oximetry 94 L 93 L 93 L Pulse Oximetry [Exertion on Room Air] Pulse Oximetry [Resting on Room Air] Intake & Output 09/23/18 09/24/18 09/24/18 18:59 06:59 18:59 Intake Total 720 / 720 120 / 120 Output Total 400 / 400 Balance 720 / 720 -280 / -280 Weight 48.3 kg Intake: Oral 720 / 720 120 / 120 Output: Urine 400 / 400 Other: # Voids 5 2 # Bowel Movements 0 - Constitutional no acute distress - Routine Respiratory Exam Present: CTA bilaterally (minimal wheezing.) - Routine Cardiovascular Exam Present: RRR - Routine Abdominal Exam Present: soft - Routine Extremities Exam Comments: no pedal edema. - Routine Neurological Exam Present: alert, oriented X3 Results Procedures completed during hospitalization: none. - Impressions ITS Impressions Chest X-Ray 09/21/18 08:00 CONCLUSION: Stable small bilateral effusions with mild bibasal infiltrates compared to the prior examination. Discharge Plan - Discharge Disposition Patient Disposition: W/Home Health Service - Discharge Condition Condition: Stable - Discharge Order Discharge Orders: Discharge Order (Routine); Ordered 09/24/18 Ordered By: Kevin Marcelo - Physicians Team Primary Care Provider: Ebenezer Chpaman Attending Provider: Kevin Marcelo Other Providers: Rigoberto Franklin MD
[2018-09-24] MEDS: guaiFENesin/Dextromethorphan 200 MG/20 MG 10 ML UDC PO PRN (09:10)
[2018-09-24] MEDS: Heparin - SQ 10,000 UNITS/ML Vial SQ SCH (09:10)
[2018-09-24] MEDS: amLODIPine 5 MG Tablet PO SCH (09:11)
[2018-09-24] MEDS: Tolterodine Tartrate LA 2 MG Capsule PO SCH (09:11)
[2018-09-24 12:41] VITALS: BP 169/98; TEMP 97.6; O2SAT 95
[2018-09-24 13:03] VITALS: PULSE 85; RESP 12
--- NOTE | 2018-09-24 14:37 | P.PN ---
Subjective Interval history: alert sitting in chair no sob at rest Physical Exam Vital signs: Vital Signs 09/23/18 16:00 09/23/18 19:48 09/23/18 20:00 Temperature 97.0 F L 97.2 F L Pulse Rate 113 H 113 H 115 H Respiratory Rate 16 16 20 Blood Pressure 158/98 H 143/74 H Pulse Oximetry 95 96 94 L 09/24/18 00:00 09/24/18 07:16 09/24/18 08:00 Temperature 97.2 F L 98.3 F Pulse Rate 100 H 113 H 106 H Respiratory Rate 20 20 22 Blood Pressure 135/77 169/89 H Pulse Oximetry 93 L 93 L 94 L 09/24/18 12:00 09/24/18 13:02 Temperature 97.6 F Pulse Rate 133 H 85 Respiratory Rate 20 12 Blood Pressure 169/98 H Pulse Oximetry 95 Intake & Output 09/23/18 09/24/18 09/24/18 18:59 06:59 18:59 Intake Total 720 / 720 120 / 120 240 / 240 Output Total 400 / 400 200 / 200 Balance 720 / 720 -280 / -280 40 / 40 Weight 48.3 kg Intake: Oral 720 / 720 120 / 120 240 / 240 Output: Urine 400 / 400 200 / 200 Other: # Voids 5 2 # Bowel Movements 0 - Constitutional no acute distress - Routine HEENT Exam Head: Present: normocephalic ENT: Present: mucous membranes moist - Routine Neck Exam Present: supple - Routine Respiratory Exam Present: CTA bilaterally - Routine Cardiovascular Exam Present: RRR, S1, S2 Results - Labs CBC & Chem 7: 09/20/18 06:15 09/20/18 06:15 Microbiology 09/18/18 18:50 Blood - Peripheral Aerobic Blood Culture - Final No growth in 5 days 09/18/18 18:50 Blood - Peripheral Anaerobic Blood Culture - Final No growth in 5 days 09/18/18 18:50 Blood - Peripheral Aerobic Blood Culture - Final No growth in 5 days 09/18/18 18:50 Blood - Peripheral Anaerobic Blood Culture - Final No growth in 5 days - Procedures none. Assessment and Plan - Plan respirayory failure copd exacerbation , improved plan o2 po meds ok for d/c office 2 weeks
== END 2018-09-24 15:03 | disposition home health service (06) ==
LOC: PHEFT 16:40 → PHEDA 19:01 → PH3 20:40
PROVIDERS: ADMIT Internal Medicine; ATTEND Internal Medicine

== ENCOUNTER 2018-11-30 15:40 | Inpatient (IN) ==
[2018-11-30] MEDS ORDERED: MethylPREDNISolone Sod Succinate Inj 125 MG/2 ML Vial IV.PUSH ONE (16:01)
--- NOTE | 2018-11-30 16:04 | ED ---
HPI General Chief complaint: Shortness of Breath/Dyspnea Stated complaint: Resp/SOB Time Seen by Provider: 11/30/18 15:50 History of Present Illness HPI narrative: This is an 83-year-old female with history of COPD on 2 L of oxygen as needed, typically at night, who presents with her for evaluation. For the past 2 days the patient has had worsening dyspnea and cough. The cough is dry but she feels like there is phlegm stuck in her throat. She is concerned that she may have pneumonia. She is denying any lower extremity edema, chest pain, fevers, chills, abdominal pain, nausea or vomiting. Symptoms are moderate. No other complaints at this time. Primary care physician is Dr. Ebenezer Chapman. Related Data Home Medications Medication Instructions Recorded Confirmed amlodipine 5 mg PO DAILY 09/18/18 11/30/18 aspirin [Aspirin Low Dose] 81 mg PO DAILY 09/18/18 11/30/18 atorvastatin 80 mg PO DAILY 09/18/18 11/30/18 lansoprazole [Prevacid] 30 mg PO DAILY 09/18/18 09/18/18 metoprolol tartrate 12.5 mg PO BID 09/18/18 11/30/18 paroxetine HCl 20 mg PO DAILY 09/18/18 11/30/18 temazepam [Restoril] 15 mg PO HS PRN 09/18/18 09/18/18 tolterodine [Detrol] 1 mg PO BID 09/18/18 11/30/18 ezetimibe 10 mg PO DAILY 11/30/18 11/30/18 fluticasone 1 inh INHALATION Q12H 11/30/18 11/30/18 losartan 50 mg PO DAILY 11/30/18 11/30/18 promethazine 12.5 mg PO PRN 11/30/18 11/30/18 temazepam 11/30/18 11/30/18 Previous Rx's Medication Instructions Recorded albuterol sulfate [Ventolin HFA] 2 puff INHALATION Q6H PRN #1 g 09/23/18 Allergies Allergy/AdvReac Type Severity Reaction Status Date / Time cephalexin Allergy Severe Rash Verified 09/18/18 16:53 diatrizoate meglumine Allergy Severe Anaphylaxis Verified 09/18/18 16:53 gadobenic acid Allergy Severe Anaphylaxis Verified 09/18/18 16:53 gadodiamide Allergy Severe Anaphylaxis Verified 09/18/18 16:53 gadoteridol Allergy Severe Anaphylaxis Verified 09/18/18 16:53 Iodinated Contrast- Oral and Allergy Severe Anaphylaxis Verified 09/18/18 16:53 IV Dye iodixanol Allergy Severe Anaphylaxis Verified 09/18/18 16:53 iohexol Allergy Severe Anaphylaxis Verified 09/18/18 16:53 Sulfa (Sulfonamide Allergy Severe Rash Verified 09/18/18 16:53 Antibiotics) Review of Systems ROS: all other systems reviewed are negative PMFSH Social History Social History Substance History: No History of Abuse Second Hand Smoke Exposure: No Smoking Status: Former smoker Tobacco Type: Cigarettes How Often Do You Have a Drink Containing Alcohol: 4 or more times a week Recent Travel in [facility] within the Last 8 Weeks: No Recent Out of Country Travel within the Last 8 Weeks: No Exam Narrative Exam Narrative: GENERAL: Pleasant well-developed well-nourished female who is in no acute distress. SKIN: Warm and dry. HEAD: Atraumatic. Normocephalic. EYES: Pupils equal and round. No scleral icterus. No injection or drainage. ENT: No nasal bleeding or discharge. Mucous membranes pink and moist. NECK: Trachea midline. No JVD. CARDIOVASCULAR: Regular rate and rhythm. No murmur appreciated. RESPIRATORY: No accessory muscle use. Diminished breath sounds bilaterally. GASTROINTESTINAL: Abdomen soft, non-tender, nondistended. Hepatic and splenic margins not palpable. MUSCULOSKELETAL: No obvious deformities. No clubbing. No cyanosis. No edema. NEUROLOGICAL: Awake and alert. No obvious cranial nerve deficits. Motor grossly within normal limits. Normal speech. PSYCHIATRIC: Appropriate mood and affect; insight and judgment normal. Course Initial Documented Vital Signs Temperature 97.3 F L 11/30/18 15:44 Pulse Rate 97 H 11/30/18 15:44 Respiratory Rate 21 11/30/18 15:44 Blood Pressure 186/81 H 11/30/18 15:44 Pulse Oximetry 90 L 11/30/18 15:44 Last Documented Vital Signs Temperature 97.3 F L 11/30/18 15:44 Pulse Rate 96 H 11/30/18 16:59 Respiratory Rate 22 11/30/18 16:59 Blood Pressure 175/83 H 11/30/18 16:03 Pulse Oximetry 93 L 11/30/18 16:59 Medical Decision Making JOSEFINA Attestation JOSEFINA supervised visit: Yes Attestation: I, Dr. Landin, have reviewed the advance practice practitioner's documentation and am in agreement, met with the patient face to face, made the diagnosis, and the medical decision making was done by me. *My assessment and Findings: 83 yo F COPD, CRI, recent hx inpt pna, arrives with dyspnea and R lung density concerning for PNA. ABG reassuring. HCAP abx, blood cultures, plan for admission. MDM Narrative Medical decision making narrative: The patient was placed on ECG monitoring pulse oximetry. Lab work, chest x-ray ordered. The patient was given DuoNeb treatment and Solu-Medrol. Chest x-ray reveals new linear infiltrate in the right prior examination as well as a mild increase in the consolidation and effusion in the right lung base. The patient was given vancomycin, Zosyn, azithromycin for hcap coverage. Her lab work is reassuring. At this point time the plan is to admit her for further treatment. Medical Screen Exam Complete: Yes Emergency Medical Condition: Yes Differential Diagnosis Differential Diagnosis: COPD exacerbation, pneumonia, pneumothorax, bronchitis, pulmonary embolism, CHF Lab Data Result diagrams: 11/30/18 16:15 11/30/18 16:20 Lab Results 11/30/18 11/30/18 11/30/18 Range/Units 16:15 16:15 16:20 WBC 6.1 (4.0-11.0) th/mm3 RBC 4.24 (4.00-5.30) mil/mm3 Hgb 13.6 (11.6-15.3) gm/dL Hct 41.1 (35.0-46.0) % MCV 97.0 (80.0-100.0) fL MCH 32.2 (27.0-34.0) pg MCHC 33.2 (32.0-36.0) % RDW 15.2 (11.6-17.2) % Plt Count 227 (150-450) th/mm3 MPV 7.6 (7.0-11.0) fL Neut % (Auto) 70.1 H (16.0-70.0) % Lymph % (Auto) 19.7 (9.0-44.0) % Baker % (Auto) 9.2 H (0.0-8.0) % Eos % (Auto) 0.1 (0.0-4.0) % Baso % (Auto) 0.9 (0.0-2.0) % Neut # (Auto) 4.3 (1.8-7.7) th/mm3 Lymph # (Auto) 1.2 (1.0-4.8) th/mm3 Baker # (Auto) 0.6 (0.0-0.9) th/mm3 Eos # (Auto) 0.0 (0.0-0.4) th/mm3 Baso # (Auto) 0.1 (0.0-0.2) th/mm3 WBC Differential . Differential Comment Auto diff final PT 9.5 L (9.8-11.6) sec INR 0.9 Ratio APTT 26.1 (23.4-31.7) sec Puncture Site Patient Temperature O2 Saturation (90-100) % ABG pH (7.380-7.420) ABG pCO2 (38-42) mmHg ABG pO2 (61-120) mmHg ABG HCO3 (22-26) mmol/L ABG O2 Content (12.0-20.0) Vol % ABG Base Excess (-2-2) mmol/L ABG Methemoglobin (0-2) % Micheal Test Hemoglobin (12.0-16.0) G/DL Carboxyhemoglobin (0-4) % O2 Delivery Device Liter Flow L/M Critical Value Sodium (136-145) meq/L Potassium (3.5-5.1) meq/L Chloride (98-107) meq/L Carbon Dioxide (21.0-32.0) meq/L Anion Gap (5-15) meq/L BUN (7-18) mg/dL Creatinine (0.50-1.00) mg/dL Estimated GFR (>89) mL/min Random Glucose (74-106) mg/dL Lactic Acid (0.4-2.0) mmol/L Calcium (8.5-10.1) mg/dL Magnesium (1.5-2.5) mg/dL Total Bilirubin (0.2-1.0) mg/dL AST (15-37) U/L ALT (10-53) U/L Alkaline Phosphatase (45-117) U/L Total Creatine Kinase (26-192) U/L Troponin I (0.02-0.05) ng/mL B-Natriuretic Peptide 228 H (0-100) pg/mL Total Protein (6.4-8.2) g/dL Albumin (3.4-5.0) g/dL 11/30/18 11/30/18 11/30/18 Range/Units 16:20 16:20 16:51 WBC (4.0-11.0) th/mm3 RBC (4.00-5.30) mil/mm3 Hgb (11.6-15.3) gm/dL Hct (35.0-46.0) % MCV (80.0-100.0) fL MCH (27.0-34.0) pg MCHC (32.0-36.0) % RDW (11.6-17.2) % Plt Count (150-450) th/mm3 MPV (7.0-11.0) fL Neut % (Auto) (16.0-70.0) % Lymph % (Auto) (9.0-44.0) % Baker % (Auto) (0.0-8.0) % Eos % (Auto) (0.0-4.0) % Baso % (Auto) (0.0-2.0) % Neut # (Auto) (1.8-7.7) th/mm3 Lymph # (Auto) (1.0-4.8) th/mm3 Baker # (Auto) (0.0-0.9) th/mm3 Eos # (Auto) (0.0-0.4) th/mm3 Baso # (Auto) (0.0-0.2) th/mm3 WBC Differential Differential Comment PT (9.8-11.6) sec INR Ratio APTT (23.4-31.7) sec Puncture Site Right radial Patient Temperature 98.6 O2 Saturation 90 (90-100) % ABG pH 7.48 H (7.380-7.420) ABG pCO2 34 L (38-42) mmHg ABG pO2 66 (61-120) mmHg ABG HCO3 25 (22-26) mmol/L ABG O2 Content 17.3 (12.0-20.0) Vol % ABG Base Excess 1.5 (-2-2) mmol/L ABG Methemoglobin 0.5 (0-2) % Micheal Test Present Hemoglobin 13.6 (12.0-16.0) G/DL Carboxyhemoglobin 1.2 (0-4) % O2 Delivery Device Nasal cannula Liter Flow 2.00 L/M Critical Value No Sodium 133 L (136-145) meq/L Potassium 3.9 (3.5-5.1) meq/L Chloride 98 (98-107) meq/L Carbon Dioxide 26.6 (21.0-32.0) meq/L Anion Gap 8 (5-15) meq/L BUN 13 (7-18) mg/dL Creatinine 0.85 (0.50-1.00) mg/dL Estimated GFR 64 L (>89) mL/min Random Glucose 114 H (74-106) mg/dL Lactic Acid 1.0 (0.4-2.0) mmol/L Calcium 8.9 (8.5-10.1) mg/dL Magnesium 1.8 (1.5-2.5) mg/dL Total Bilirubin 0.5 (0.2-1.0) mg/dL AST 29 (15-37) U/L ALT 28 (10-53) U/L Alkaline Phosphatase 143 H (45-117) U/L Total Creatine Kinase 45 (26-192) U/L Troponin I Less than 0.02 L (0.02-0.05) ng/mL B-Natriuretic Peptide (0-100) pg/mL Total Protein 7.3 (6.4-8.2) g/dL Albumin 3.6 (3.4-5.0) g/dL Imaging Data Radiologist's impression: Chest X-Ray 11/30/18 16:01 CONCLUSION: 1. New linear infiltrate in the right middle lobe compared to the prior exam. 2. There has been a mild increase in the parenchymal consolidation and effusion in the right lung base. 3. The left lung is grossly clear and stable compared to the prior study with either some pleural thickening versus a small left-sided effusion Discharge Plan Discharge Disposition Patient Disposition: ED Admit(ED Internal Use Only) Discharge Condition Condition: Stable Discharge Order Discharge Orders: ED Use Only Admit Order (Routine); Ordered 11/30/18 Ordered By: Milton Moore Discharge Details Diagnosis: HCAP (healthcare-associated pneumonia) Physicians Team ED Provider: Diomedes Landin ED Midlevel Provider: Milton Moore Primary Care Provider: UNKNOWN, Rxs /Orders / Referrals /Forms Prescriptions: No Action atorvastatin 80 mg Tablet 80 mg PO DAILY RF: 0 tolterodine [Detrol] 1 mg Tablet 1 mg PO BID RF: 0 amlodipine 5 mg Tablet 5 mg PO DAILY RF: 0 aspirin [Aspirin Low Dose] 81 mg Tablet,Delayed Release (Dr/Ec) 81 mg PO DAILY RF: 0 temazepam [Restoril] 15 mg Capsule 15 mg PO HS PRN (Reason: Insomnia) RF: 0 paroxetine HCl 20 mg Tablet 20 mg PO DAILY RF: 0 lansoprazole [Prevacid] 30 mg Capsule,Delayed Release(Dr/Ec) 30 mg PO DAILY RF: 0 metoprolol tartrate 25 mg Tablet 12.5 mg PO BID RF: 0 albuterol sulfate [Ventolin HFA] 90 mcg/actuation Hfa Aerosol Inhaler 2 puff INHALATION Q6H PRN (Reason: sob) Qty: 1 RF: 0 losartan 50 mg Tablet 50 mg PO DAILY RF: 0 fluticasone 50 mcg/actuation Blister With Device 1 inh INHALATION Q12H RF: 0 temazepam 15 mg Capsule RF: 0 promethazine 25 mg Tablet 12.5 mg PO PRN (Reason: Nausea) RF: 0 ezetimibe 10 mg Tablet 10 mg PO DAILY RF: 0 Status ED Status: With Doctor
--- NOTE | 2018-11-30 16:27 | XR ---
EXAM DATE: 11/30/2018 4:17 PM EST AGE/SEX: 83 years / Female INDICATIONS: . Shortness of breath. CLINICAL DATA: This is the patient's initial encounter. Patient reports that signs and symptoms have been present for 2 days and indicates a pain score of 0/10. MEDICAL/SURGICAL HISTORY: Hypertension. Rectal prolapse Appendectomy. Tonsillectomy. COMPARISON: [facility], CHEST 2V PA&LAT, 09/18/2018. . FINDINGS: Today's exam is compared to the prior study. There is a new linear infiltrate in the right middle lob e. There is some increased consolidation with effusion in the right lung base compared to the prior s tudy. The left lung is grossly clear. There continues to be some blunting of the left costophrenic an gle which could represent either a small effusion versus pleural thickening. The heart size is stable . There is no pneumothorax. The bony structures are stable. CONCLUSION: 1. New linear infiltrate in the right middle lobe compared to the prior exam. 2. There has been a mild increase in the parenchymal consolidation and effusion in the right lung ba se. 3. The left lung is grossly clear and stable compared to the prior study with either some pleural th ickening versus a small left-sided effusion Electronically signed by: Rajesh Rojas MD Board Certified Radiologist 11/30/2018 4:25 PM EST
[2018-11-30] MEDS ORDERED: Piperacil/Tazo 4.5 GM Premix 4.5 GM/100 ML BAG IV.SIG STA (16:42)
[2018-11-30] MEDS ORDERED: Vancomycin Inj 1,000 MG in Sodium Chlor 0.9% Inj 250 ML IV.SIG ONE (16:42)
[2018-11-30] MEDS ORDERED: Azithromycin Inj 500 MG in Sodium Chlor 0.9% Inj 250 ML IV.SIG STA (16:42)
[2018-11-30 17:00] LABS: Baso # (Auto) 0.1 th/mm3 (0.0-0.2); Baso % (Auto) 0.9 % (0.0-2.0); Eos % (Auto) 0.1 % (0.0-4.0); Hematocrit 41.1 % (35.0-46.0); Hemoglobin 13.6 gm/dL (11.6-15.3); Lymph # (Auto) 1.2 th/mm3 (1.0-4.8); Lymph % (Auto) 19.7 % (9.0-44.0); Mean Corpuscular HGB Conc 33.2 % (32.0-36.0); Mean Corpuscular Hemoglobin 32.2 pg (27.0-34.0); Mean Platelet Volume 7.6 fL (7.0-11.0); Mono # (Auto) 0.6 th/mm3 (0.0-0.9); Mono % (Auto) 9.2 % (0.0-8.0); Neut # (Auto) 4.3 th/mm3 (1.8-7.7); Neut % (Auto) 70.1 % (16.0-70.0); Platelet Count 227 th/mm3 (150-450); Red Blood Count 4.24 mil/mm3 (4.00-5.30); Red Cell Distribution Width 15.2 % (11.6-17.2); White Blood Count 6.1 th/mm3 (4.0-11.0)
[2018-11-30 17:01] LABS: ABG Base Excess 1.5 mmol/L (-2-2); ABG PCO2 34 mmHg (38-42); ABG PO2 66 mmHg (61-120)
[2018-11-30 17:14] LABS: Albumin 3.6 g/dL (3.4-5.0); Anion Gap 8 meq/L (5-15); Aspartate Aminotransferase 29 U/L (15-37); Blood Urea Nitrogen 13 mg/dL (7-18); Calcium 8.9 mg/dL (8.5-10.1); Carbon Dioxide 26.6 meq/L (21.0-32.0); Chloride 98 meq/L (98-107); Glomerular Filtration Rate 64 mL/min (>89); Glucose,Random 114 mg/dL (74-106); Magnesium 1.8 mg/dL (1.5-2.5); Potassium 3.9 meq/L (3.5-5.1); Sodium 133 meq/L (136-145)
[2018-11-30 17:19] LABS: Activated Partial Thrombo Time 26.1 sec (23.4-31.7); Alanine Aminotransferase 28 U/L (10-53); Alkaline Phosphatase 143 U/L (45-117); INR 0.9 Ratio; Prothrombin Time 9.5 sec (9.8-11.6); Total Protein 7.3 g/dL (6.4-8.2)
[2018-11-30 17:25] LABS: Creatine Kinase 45 U/L (26-192)
[2018-11-30] MEDS ORDERED: Bisacodyl 10 MG Supp RECTAL PRN (18:14)
[2018-11-30] MEDS ORDERED: Benzonatate 100 MG Capsule PO PRN (18:14)
[2018-11-30] MEDS ORDERED: Acetaminophen 325 MG Tablet PO PRN (18:14)
[2018-11-30] MEDS ORDERED: Vancomycin Consult Pharmacy OTHER PRN (18:19)
[2018-11-30] MEDS: Enoxaparin Inj 40 MG/0.4 ML Syringe SQ SCH (19:36)
--- NOTE | 2018-11-30 19:48 | P.HPIM ---
History of Present Illness Primary Care Physician: UNKNOWN Chief Complaint: sob History of Present Illness: 83-year-old female with COPD on 2 L nasal cannula as needed at home presents with 2 days worsening shortness of breath and nonproductive cough. Patient denies fever chest pain nausea vomiting diarrhea. She was admitted in August for COPD exacerbation. Patient was found to have consolidation and effusion in the right lung base and was treated with vancomycin and Zosyn and azithromycin for HCAP coverage due to recent hospitalization as well as IV Solu-Medrol.. Were asked for admission for further workup and management, patient states she is feeling better status post the oxygen and nebulizer treatments. PMhx: COPD, CKD 3, murmur, mild aortic stenosis, PVD, HTN, PSXhx: L CEA, partial hip arthroplasty right, repair of detached retina, SOChx: Denies tobacco, quit 1992, admits to 2 drinks of vodka a day, denies withdrawal symptoms, lives at home with , ambulates with walker due to unsteady gait. Fall in May with hip fracture FAMhx: Father of [place], mother of stroke Review of Systems Review of Systems: all other systems reviewed are negative [facility] Social History Social History Substance History: No History of Abuse Second Hand Smoke Exposure: No Smoking Status: Former smoker Tobacco Type: Cigarettes How Often Do You Have a Drink Containing Alcohol: 2 to 3 times a week Recent Travel in [facility] within the Last 8 Weeks: No Recent Out of Country Travel within the Last 8 Weeks: No Immunization History Tetanus Immunization: Unsure Medications and Allergies Allergies Allergy/AdvReac Type Severity Reaction Status Date / Time cephalexin Allergy Severe Rash Verified 09/18/18 16:53 diatrizoate meglumine Allergy Severe Anaphylaxis Verified 09/18/18 16:53 gadobenic acid Allergy Severe Anaphylaxis Verified 09/18/18 16:53 gadodiamide Allergy Severe Anaphylaxis Verified 09/18/18 16:53 gadoteridol Allergy Severe Anaphylaxis Verified 09/18/18 16:53 Iodinated Contrast- Oral and Allergy Severe Anaphylaxis Verified 09/18/18 16:53 IV Dye iodixanol Allergy Severe Anaphylaxis Verified 09/18/18 16:53 iohexol Allergy Severe Anaphylaxis Verified 09/18/18 16:53 Sulfa (Sulfonamide Allergy Severe Rash Verified 09/18/18 16:53 Antibiotics) Home Medications Medication Instructions Recorded Confirmed Type amlodipine 5 mg PO DAILY 09/18/18 11/30/18 History aspirin [Aspirin Low Dose] 81 mg PO DAILY 09/18/18 11/30/18 History atorvastatin 80 mg PO DAILY 09/18/18 11/30/18 History lansoprazole [Prevacid] 30 mg PO DAILY 09/18/18 09/18/18 History metoprolol tartrate 12.5 mg PO BID 09/18/18 11/30/18 History paroxetine HCl 20 mg PO DAILY 09/18/18 11/30/18 History temazepam [Restoril] 15 mg PO HS PRN 09/18/18 09/18/18 History tolterodine [Detrol] 1 mg PO BID 09/18/18 11/30/18 History ezetimibe 10 mg PO DAILY 11/30/18 11/30/18 History fluticasone 1 inh INHALATION Q12H 11/30/18 11/30/18 History losartan 50 mg PO DAILY 11/30/18 11/30/18 History promethazine 12.5 mg PO PRN 11/30/18 11/30/18 History temazepam 11/30/18 11/30/18 History Active Medications: Active Medications Acetaminophen (Tylenol) 650 mg PO Q4H PRN PRN Reason: Temp > 100.4 Al Hydroxide/Mg Hydroxide (Milk Of Too Lihumza) 30 ml PO Q12H PRN PRN Reason: Mild Constipation Albuterol (Duoneb Neb (Tony)) 1 ampul NEB Q6HR WHILE AWAKE NEB [facility] Amlodipine Besylate (Norvasc) 5 mg PO DAILY [facility] Aspirin (Ecotrin) 81 mg PO DAILY [facility] Atorvastatin Calcium (Lipitor) 80 mg PO DAILY [facility] Benzonatate (Tessalon Perles) 200 mg PO Q8H PRN PRN Reason: COUGH Bisacodyl (Dulcolax Supp) 10 mg RECTAL DAILY PRN PRN Reason: SEVERE CONSITIPATION Ezetimibe (Zetia) 10 mg PO DAILY [facility] Enoxaparin Sodium (Lovenox Inj) 40 mg SQ Q24H [facility] Guaifenesin (Mucinex Er) 600 mg PO BID [facility] Piperacillin/Tazobactam/Dextrose (Zosyn 3.375 Gm Premix) 3.375 gm in 50 mls @ 100 mls/hr IV.SIG Q8H [facility] Lactulose (Lactulose Liq) 30 ml PO DAILY PRN PRN Reason: SEVERE CONSITIPATION Losartan Potassium (Cozaar) 50 mg PO DAILY [facility] Methylprednisolone Sodium Succinate (Solumedrol Inj) 40 mg IV.PUSH Q6H [facility] Metoprolol Tartrate (Lopressor) 12.5 mg PO BID [facility] Non-Formulary Medication (Fluticasone [Fluticasone]) 1 inh INHALATION Q12H [facility] Ondansetron HCl (Zofran Inj) 4 mg IV.PUSH Q6H PRN PRN Reason: NAUSEA OR VOMITING Pantoprazole Sodium (Protonix) 40 mg PO DAILY [facility] Paroxetine HCl (Paxil) 20 mg PO DAILY [facility] Pharmacy Profile Note (Vancomycin Consult Pharmacy) 1 each OTHER UNSCH PRN PRN Reason: Pharmacy to dose Senna/Docusate Sodium (Christy-Colace) 1 tab PO BID [facility] Sennosides (Senokot) 17.2 mg PO Q12H PRN PRN Reason: Moderate Constipation Sodium Chloride (Ns Flush) 2 ml IV.FLUSH BID [facility] Sodium Chloride (Ns Flush) 2 ml IV.FLUSH PRN PRN PRN Reason: FLUSH AFTER USING IV ACCESS Tolterodine Tartrate (Detrol La) 2 mg PO DAILY [facility] Physical Exam Vital signs: Last Vital Signs Temp 97.3 F L 11/30/18 15:44 Pulse 96 H 11/30/18 16:59 Resp 22 11/30/18 16:59 BP 175/83 H 11/30/18 16:03 Pulse Ox 93 L 11/30/18 16:59 Intake & Output 11/28/18 11/29/18 11/30/18 12/01/18 06:59 06:59 06:59 06:59 Weight 101 kg GEN well-developed well-nourished frail appearing 83-year-old female awake alert oriented to person time and place, pleasant in no acute distress HEENT normocephalic atraumatic, Pupils equal reactive, sclerae anicteric, extraocular motion intact, mucosa is moist. posterior pharynx clear NECK supple no JVD trachea midline thyroid smooth not enlarged ANT CHEST WALL without mass or tenderness to palpation HEART S1-S2 regular with2/6s murmur no gallops or clicks LUNGS clear to auscultation with decreased air movment, no wrr, decreased bs left base BACK exam is no CVA tenderness or mass ABDOMEN soft nondistended positive bowel sounds no guarding rebound rigidity LYMPH NODES no cervical, axillary or inguinal adenopathy noted EXTREMITIES no clubbing cyanosis or significant edema, peripheral pulses palpable +2 NEUROLOGIC cranial nerves II through XII appear grossly intact, strength is 5 out of 5 symmetrical no clonus or rigidity SKIN warm and dry with decreased turgor, no other rash or sores noted Results Labs CBC & Chem 7: 11/30/18 16:15 11/30/18 16:20 Imaging Impressions Chest X-Ray 11/30/18 16:01 CONCLUSION: 1. New linear infiltrate in the right middle lobe compared to the prior exam. 2. There has been a mild increase in the parenchymal consolidation and effusion in the right lung base. 3. The left lung is grossly clear and stable compared to the prior study with either some pleural thickening versus a small left-sided effusion Caprini VTE Risk Assessment Caprini VTE Risk Assessment: Moderate/High Risk (score >= 2) Caprini Risk Assessment Model: Point Value = 1 Point Value = 2 Point Value = 3 Point Value = 5 Age 41-60 Minor surgery BMI > 25 kg/m2 Swollen legs Varicose veins or History of unexplained or recurrent spontaneous Oral contraceptives or hormone replacement Sepsis (< 1 month) Serious lung disease, including pneumonia (< 1 month) Abnormal pulmonary function Acute myocardial infarction Congestive heart failure (< 1 month) History of inflammatory bowel disease Medical patient at bed rest Age 61-74 Arthroscopic surgery Major open surgery (> 45 min) Laparoscopic surgery (> 45 min) Malignancy Confined to bed (> 72 hours) Immobilizing plaster cast Central venous access Age >= 75 History of VTE Family history of VTE Factor V Leiden Prothrombin [id number] Lupus anticoagulant Anticardiolipin antibodies Elevated serum homocysteine Heparin-induced thrombocytopenia Other congenital or acquired thrombophilia Stroke (< 1 month) Elective arthroplasty Hip, pelvis, or leg fracture Acute spinal cord injury (< 1 month) Prophylaxis Regimen: Total Risk Factor Score Risk Level Prophylaxis Regimen 0-1 Low Early ambulation 2 Moderate Order ONE of the following: *Sequential Compression Device (SCD) *Heparin 5000 units SQ BID 3-4 Higher Order ONE of the following medications: *Heparin 5000 units SQ TID *Enoxaparin/Lovenox 40 mg SQ daily (WT < 150 kg, CrCl > 30 mL/min) *Enoxaparin/Lovenox 30 mg SQ daily (WT < 150 kg, CrCl > 10-29 mL/min) *Enoxaparin/Lovenox 30 mg SQ BID (WT < 150 kg, CrCl > 30 mL/min) AND/OR *Sequential Compression Device (SCD) 5 or more Highest Order ONE of the following medications: *Heparin 5000 units SQ TID (Preferred with Epidurals) *Enoxaparin/Lovenox 40 mg SQ daily (WT < 150 kg, CrCl > 30 mL/min) *Enoxaparin/Lovenox 30 mg SQ daily (WT < 150 kg, CrCl > 10-29 mL/min) *Enoxaparin/Lovenox 30 mg SQ BID (WT < 150 kg, CrCl > 30 mL/min) AND *Sequential Compression Device (SCD) Assessment and Plan Plan ACUTE EXACERBATION of severe COPD - steroids, pulm tx CHRONIC HYPOXIA due to copd on home o2 prn RLL PNA possible hcap due to recent hospitalization - cont abx, fu cx sputum, cont pulm toilet MOD /AR HTN uncontrolled -resume bp control CKD III - stable monitor on abx DYSLIPIDEMIA/ pvd - cont home meds dvt prophlyaxis - lovenox dispo - home 1-2 days pending clinical course
[2018-11-30] MEDS ORDERED: Vancomycin Inj 1,750 MG in Sodium Chlor 0.9% Inj 500 ML IV.SIG SCH (20:00)
[2018-11-30] MEDS: Metoprolol Tartrate 25 MG Tablet PO SCH (21:48)
[2018-11-30] MEDS: guaiFENesin 600 MG ER Tablet PO SCH (21:49)
[2018-11-30] MEDS: Senna/Docusate Sodium 8.6/50 MG Tablet PO SCH (21:49)
[2018-11-30] MEDS: MethylPREDNISolone Sod Succinate Inj 40 MG/ML Vial IV.PUSH SCH (21:50)
[2018-11-30] MEDS: Temazepam 15 MG Capsule PO PRN (23:12)
[2018-12-01] MEDS: Piperacil/Tazo 3.375 GM Premix 3.375 GM/50 ML PIGGYBACK IV.SIG SCH ×3 (03:19→17:24)
[2018-12-01] MEDS: MethylPREDNISolone Sod Succinate Inj 40 MG/ML Vial IV.PUSH SCH ×4 (03:20→21:01)
--- NOTE | 2018-12-01 09:22 | P.PNIM ---
Subjective Interval history: Follow-up pneumonia, COPD exacerbation. Patient seen and examined today. Reports she is doing a lot better compared to yesterday. States she still has shortness of breath and dyspnea especially with exertion however it is better than she was unable to breathe yesterday. Denies pain and discomfort. Denies chest pain, palpitations, headaches, dizziness. Denies fevers, chills, n/v/d. Denies dysuria. Physical Exam Vital signs: Vital Signs 11/30/18 15:44 11/30/18 16:03 11/30/18 16:59 Temperature 97.3 F L Pulse Rate 97 H 92 H 96 H Respiratory Rate 21 20 22 Blood Pressure 186/81 H 175/83 H Pulse Oximetry 90 L 96 93 L 11/30/18 19:00 11/30/18 19:06 11/30/18 19:15 Temperature Pulse Rate 100 H 101 H Respiratory Rate 18 18 Blood Pressure 141/76 H Pulse Oximetry 89 L 98 93 L 12/01/18 00:00 12/01/18 07:49 Temperature 97.9 F Pulse Rate 100 H 101 H Respiratory Rate 20 16 Blood Pressure 136/65 Pulse Oximetry 93 L 94 L Intake & Output 11/30/18 12/01/18 12/01/18 18:59 06:59 18:59 Intake Total 1630 / 1630 Balance 1630 / 1630 Weight 101 kg 45.2 kg Intake: IV 1150 / 1150 Azithromycin Inj 500 MG In NS 250 / 250 Inj 250 ML @ 250 mls/hr IV.SIG STAT STA Rx#:[id number] Zosyn 3.375 GM Premix 3.375 gm 50 / 50 In 50 ml @ 100 mls/hr IV.SIG Q8H LO Rx#:[id number] Zosyn 4.5 GM Premix 4.5 gm In 100 / 100 100 ml @ 200 mls/hr IV.SIG STAT STA Rx#:[id number] Vancomycin Inj 1,750 MG In NS 750 / 750 Inj 500 ML @ 250 mls/hr IV.SIG Q24H LO Rx#:[id number] Oral 480 / 480 Other: # Voids 1 # Bowel Movements 1 Weight On Admission 45.4 kg Narrative: GENERAL: This is a well-nourished, well-developed patient, in no apparent distress. SKIN: Warm and dry HEENT: Normocephalic. Pupils equal round and reactive. Nose without bleeding. Airway patent. NECK: Trachea midline. CARDIOVASCULAR: Regular rate and rhythm without murmurs, gallops, or rubs. RESPIRATORY: Expiratory wheeze. Diminished right greater than left. GASTROINTESTINAL: Abdomen soft, non-tender, nondistended. Bowel Sounds normoactive x4. MUSCULOSKELETAL: Extremities without clubbing, cyanosis, or edema. NEUROLOGICAL: Awake and alert. No focal neuro deficit. Moves all extremities. Normal speech. Results - Labs CBC & Chem 7: 11/30/18 16:15 11/30/18 16:20 Laboratory Results - last 24 hr 11/30/18 11/30/18 11/30/18 16:15 16:15 16:20 WBC 6.1 RBC 4.24 Hgb 13.6 Hct 41.1 MCV 97.0 MCH 32.2 MCHC 33.2 RDW 15.2 Plt Count 227 MPV 7.6 Neut % (Auto) 70.1 H Lymph % (Auto) 19.7 [place] % (Auto) 9.2 H Eos % (Auto) 0.1 Baso % (Auto) 0.9 Neut # (Auto) 4.3 Lymph # (Auto) 1.2 [place] # (Auto) 0.6 Eos # (Auto) 0.0 Baso # (Auto) 0.1 WBC Differential . Differential Comment Auto diff final PT 9.5 L INR 0.9 APTT 26.1 Puncture Site Patient Temperature O2 Saturation ABG pH ABG pCO2 ABG pO2 ABG HCO3 ABG O2 Content ABG Base Excess ABG Methemoglobin Micheal Test Hemoglobin Carboxyhemoglobin O2 Delivery Device Liter Flow Critical Value Sodium Potassium Chloride Carbon Dioxide Anion Gap BUN Creatinine Estimated GFR Random Glucose Lactic Acid Calcium Magnesium Total Bilirubin AST ALT Alkaline Phosphatase Total Creatine Kinase Troponin I B-Natriuretic Peptide 228 H Total Protein Albumin 11/30/18 11/30/18 11/30/18 16:20 16:20 16:51 WBC RBC Hgb Hct MCV MCH MCHC RDW Plt Count MPV Neut % (Auto) Lymph % (Auto) [place] % (Auto) Eos % (Auto) Baso % (Auto) Neut # (Auto) Lymph # (Auto) [place] # (Auto) Eos # (Auto) Baso # (Auto) WBC Differential Differential Comment PT INR APTT Puncture Site Right radial Patient Temperature 98.6 O2 Saturation 90 ABG pH 7.48 H ABG pCO2 34 L ABG pO2 66 ABG HCO3 25 ABG O2 Content 17.3 ABG Base Excess 1.5 ABG Methemoglobin 0.5 Micheal Test Present Hemoglobin 13.6 Carboxyhemoglobin 1.2 O2 Delivery Device Nasal cannula Liter Flow 2.00 Critical Value No Sodium 133 L Potassium 3.9 Chloride 98 Carbon Dioxide 26.6 Anion Gap 8 BUN 13 Creatinine 0.85 Estimated GFR 64 L Random Glucose 114 H Lactic Acid 1.0 Calcium 8.9 Magnesium 1.8 Total Bilirubin 0.5 AST 29 ALT 28 Alkaline Phosphatase 143 H Total Creatine Kinase 45 Troponin I Less than 0.02 L B-Natriuretic Peptide Total Protein 7.3 Albumin 3.6 - Imaging Impressions Chest X-Ray 11/30/18 16:01 CONCLUSION: 1. New linear infiltrate in the right middle lobe compared to the prior exam. 2. There has been a mild increase in the parenchymal consolidation and effusion in the right lung base. 3. The left lung is grossly clear and stable compared to the prior study with either some pleural thickening versus a small left-sided effusion Assessment and Plan - Plan 83-year-old female with COPD on 2 L nasal cannula as needed at home presents with 2 days worsening shortness of breath and nonproductive cough. Pneumonia, community-acquired, acute COPD with exacerbation -Chest x-ray showed 1. New linear infiltrate in the right middle lobe compared to the prior exam. 2. There has been a mild increase in the parenchymal consolidation and effusion in the right lung base. 3. The left lung is grossly clear and stable compared to the prior study with either some pleural thickening versus a small left-sided effusion -History of prior pneumonia posthospitalization of her hip replacement last August. -IV antibiotics Zosyn, vancomycin -Blood cultures no growth to date -Duo nebs scheduled and as needed, benzonatate, Mucinex -Solu-Medrol, switch over to p.o. prednisone taper dose clinically improved -Continue fluticasone, tiotropium, patient reports she takes another medication, will start symbicort for now -O2 nasal cannula to continue, O2 dependent with 20 L nasal cannula, keep O2 sat greater than 90% HTN, uncontrolled HLD, PVD CKD 3 -Continue home medications Cozaar, ASA, Norvasc, metoprolol, Lipitor -Monitor BP trend DVT prop Lovenox Full Code Code Status: Full code Discussed Condition With: Patient, nursing Discharge Planning: DC when clinically improved, may need home health
[2018-12-01] MEDS: Tolterodine Tartrate LA 2 MG Capsule PO SCH (09:57)
[2018-12-01] MEDS: guaiFENesin 600 MG ER Tablet PO SCH ×2 (09:57→20:52)
[2018-12-01] MEDS: Senna/Docusate Sodium 8.6/50 MG Tablet PO SCH ×2 (09:57→20:51)
[2018-12-01] MEDS: Ezetimibe 10 MG Tablet PO SCH (09:58)
[2018-12-01] MEDS: Metoprolol Tartrate 25 MG Tablet PO SCH ×2 (09:58→20:51)
[2018-12-01] MEDS: amLODIPine 5 MG Tablet PO SCH (09:58)
[2018-12-01] MEDS: Tiotropium Bromide 18 MCG/ACT Inhaler INH SCH (12:09)
[2018-12-01] MEDS: Enoxaparin Inj 40 MG/0.4 ML Syringe SQ SCH (17:24)
[2018-12-01] MEDS: Budesonide-Formoterol 160/4.5 MCG 6 GM Inhaler INH SCH ×2 (17:25→20:53)
[2018-12-01] MEDS: Temazepam 15 MG Capsule PO PRN (21:00)
[2018-12-02] MEDS: Piperacil/Tazo 3.375 GM Premix 3.375 GM/50 ML PIGGYBACK IV.SIG SCH ×3 (01:51→17:49)
[2018-12-02] MEDS: MethylPREDNISolone Sod Succinate Inj 40 MG/ML Vial IV.PUSH SCH ×4 (04:01→21:14)
[2018-12-02 05:53] LABS: Baso % (Auto) 0.2 % (0.0-2.0); Hematocrit 36.6 % (35.0-46.0); Hemoglobin 12.5 gm/dL (11.6-15.3); Lymph # (Auto) 0.6 th/mm3 (1.0-4.8); Lymph % (Auto) 5.3 % (9.0-44.0); Mean Corpuscular HGB Conc 34.1 % (32.0-36.0); Mean Corpuscular Hemoglobin 33.1 pg (27.0-34.0); Mean Platelet Volume 8.3 fL (7.0-11.0); Mono # (Auto) 0.2 th/mm3 (0.0-0.9); Neut # (Auto) 9.9 th/mm3 (1.8-7.7); Neut % (Auto) 92.5 % (16.0-70.0); Platelet Count 232 th/mm3 (150-450); Red Blood Count 3.77 mil/mm3 (4.00-5.30); Red Cell Distribution Width 15.1 % (11.6-17.2); White Blood Count 10.7 th/mm3 (4.0-11.0)
[2018-12-02 06:15] LABS: Carbon Dioxide 27.3 meq/L (21.0-32.0); Potassium 3.7 meq/L (3.5-5.1)
--- NOTE | 2018-12-02 08:32 | XR ---
EXAM DATE: 12/02/2018 8:24 AM EST AGE/SEX: 83 years / Female INDICATIONS: Short of breath and congestion. CLINICAL DATA: This is the patient's subsequent encounter. Patient reports that signs and symptoms h ave been present for 4 - 6 days and indicates a pain score of 0/10. MEDICAL/SURGICAL HISTORY: . Hypertension. Rectal prolapse. . Appendectomy. Tonsillectomy. COMPARISON: [facility] [place], CHEST 2V PA&LAT, 11/30/2018. . FINDINGS: Persistent consolidation and effusion in the right base. This has progressed minimally. Trace effusion on the left Heart remains enlarged. Poor vascularity is mildly congested. CONCLUSION: Consolidation and effusion right base with some regression Slight increase the amount of effusion on the left. Mild failure persist Electronically signed by: Daljit Rascon MD Board Certified Radiologist 12/02/2018 8:30 AM EST
--- NOTE | 2018-12-02 09:40 | P.PNIM ---
Subjective Interval history: Follow-up pneumonia, COPD exacerbation. Patient seen and examined today. Reports she continues to have SOB/ dyspnea especially on exertion. Notable SOB with conversation. Denies pain and discomfort. Denies chest pain, palpitations , headaches, dizziness. Denies fevers, chills, n/v/d. Denies dysuria. Physical Exam Vital signs: Vital Signs 12/01/18 12:00 12/01/18 14:20 12/01/18 16:00 Temperature 97.6 F 98.4 F Pulse Rate 75 98 H 86 Respiratory Rate 16 16 17 Blood Pressure 151/66 H 124/61 Pulse Oximetry 97 93 L 12/01/18 19:29 12/01/18 20:00 12/02/18 00:00 Temperature 98.3 F 98.0 F Pulse Rate 85 91 H 75 Respiratory Rate 18 17 20 Blood Pressure 131/61 139/63 Pulse Oximetry 95 96 95 12/02/18 08:00 12/02/18 08:55 Temperature 98.0 F Pulse Rate 100 H 92 H Respiratory Rate 18 18 Blood Pressure 139/67 Pulse Oximetry 93 L 94 L Intake & Output 12/01/18 12/02/18 12/02/18 18:59 06:59 18:59 Intake Total 100 / 100 410 / 410 Balance 100 / 100 410 / 410 Weight 45.3 kg 46 kg Intake: IV 100 / 100 50 / 50 Zosyn 3.375 GM Premix 3.375 gm 100 / 100 50 / 50 In 50 ml @ 100 mls/hr IV.SIG Q8H LO Rx#:[id number] Oral 360 / 360 Other: # Voids 2 Date of Last Bowel Movement 11/30/18 Narrative: GENERAL: This is a well-nourished, well-developed patient, in no apparent distress. SKIN: Warm and dry. HEENT: Normocephalic. Pupils equal round and reactive. Nose without bleeding. Airway patent. NECK: Trachea midline. CARDIOVASCULAR: Regular rate and rhythm without murmurs, gallops, or rubs. RESPIRATORY: Expiratory wheeze. Diminished right greater than left. Mild rales. GASTROINTESTINAL: Abdomen soft, non-tender, nondistended. Bowel Sounds normoactive x4. MUSCULOSKELETAL: Extremities without clubbing, cyanosis, or edema. NEUROLOGICAL: Awake and alert. No focal neuro deficit. Moves all extremities. Normal speech. Results - Labs CBC & Chem 7: 12/02/18 04:24 12/02/18 04:24 Laboratory Results - last 24 hr 12/02/18 12/02/18 04:24 04:24 WBC 10.7 RBC 3.77 L Hgb 12.5 Hct 36.6 MCV 97.0 MCH 33.1 MCHC 34.1 RDW 15.1 Plt Count 232 MPV 8.3 Neut % (Auto) 92.5 H Lymph % (Auto) 5.3 L [place] % (Auto) 2.0 Eos % (Auto) 0.0 Baso % (Auto) 0.2 Neut # (Auto) 9.9 H Lymph # (Auto) 0.6 L [place] # (Auto) 0.2 Eos # (Auto) 0.0 Baso # (Auto) 0.0 WBC Differential . Differential Comment Auto diff final Sodium 136 Potassium 3.7 Chloride 100 Carbon Dioxide 27.3 Anion Gap 9 BUN 15 Creatinine 1.06 H Estimated GFR 50 L Random Glucose 187 H Calcium 9.0 Microbiology 11/30/18 16:15 Blood - Peripheral Aerobic Blood Culture - Preliminary No growth in 1 day 11/30/18 16:15 Blood - Peripheral Anaerobic Blood Culture - Preliminary No growth in 1 day 11/30/18 16:20 Blood - Peripheral Aerobic Blood Culture - Preliminary No growth in 1 day 11/30/18 16:20 Blood - Peripheral Anaerobic Blood Culture - Preliminary No growth in 1 day - Imaging Impressions Chest X-Ray 12/02/18 00:00 CONCLUSION: Consolidation and effusion right base with some regression Slight increase the amount of effusion on the left. Mild failure persist Assessment and Plan - Plan 83-year-old female with COPD on 2 L nasal cannula as needed at home presents with 2 days worsening shortness of breath and nonproductive cough. Pneumonia, community-acquired, acute COPD with exacerbation -Chest x-ray showed 1. New linear infiltrate in the right middle lobe compared to the prior exam. 2. There has been a mild increase in the parenchymal consolidation and effusion in the right lung base. 3. The left lung is grossly clear and stable compared to the prior study with either some pleural thickening versus a small left-sided effusion -History of prior pneumonia posthospitalization of her hip replacement last August. -IV antibiotics Zosyn, vancomycin, switch vanco IV to doxy PO -Blood cultures no growth to date -Duo nebs scheduled and as needed, benzonatate, Mucinex -Solu-Medrol, switch over to p.o. prednisone taper dose whenclinically improved -Continue fluticasone, tiotropium, patient reports she takes another medication, will start Symbicort for now -O2 nasal cannula to continue, O2 dependent with 20 L nasal cannula, keep O2 sat greater than 90% -MRSA nasal swab, will dc doxy if negative swab -Repeat chest x-ray showed Consolidation and effusion right base with some regression. Slight increase the amount of effusion on the left. Mild failure persist -Lasix 40 mg x1 dose now. Lasix daily. Review of chart showed echocardiogram done 08/2018 with preserved EF 55-60%. Normal LV. MVR. -Monitor resp status HTN, uncontrolled HLD, PVD CKD 3 -Continue home medications Cozaar, ASA, Norvasc, metoprolol, Lipitor -Monitor BP trend DVT prop Lovenox Full Code Discussed Condition With: Patient, nursing Discharge Planning: DC when clinically improved, may need home health
[2018-12-02] MEDS: Metoprolol Tartrate 25 MG Tablet PO SCH ×2 (09:41→21:13)
[2018-12-02] MEDS: Tolterodine Tartrate LA 2 MG Capsule PO SCH (09:41)
[2018-12-02] MEDS: amLODIPine 5 MG Tablet PO SCH (09:41)
[2018-12-02] MEDS: Ezetimibe 10 MG Tablet PO SCH (09:41)
[2018-12-02] MEDS: guaiFENesin 600 MG ER Tablet PO SCH ×2 (09:42→21:14)
[2018-12-02] MEDS: Senna/Docusate Sodium 8.6/50 MG Tablet PO SCH ×2 (09:42→21:13)
[2018-12-02] MEDS: Budesonide-Formoterol 160/4.5 MCG 6 GM Inhaler INH SCH ×2 (09:44→21:19)
[2018-12-02] MEDS: Tiotropium Bromide 18 MCG/ACT Inhaler INH SCH (09:44)
[2018-12-02] MEDS ORDERED: Vancomycin Inj 750 MG in Sodium Chlor 0.9% Inj 250 ML IV.SIG SCH (11:00)
[2018-12-02] MEDS ORDERED: Vancomycin Inj 1,000 MG in Sodium Chlor 0.9% Inj 250 ML IV.SIG SCH (15:00)
[2018-12-02] MEDS: Enoxaparin Inj 40 MG/0.4 ML Syringe SQ SCH (17:48)
--- NOTE | 2018-12-02 20:06 | MB ---
cc: Messi Bhatt MD DATE: 12/02/2018 REQUESTING PHYSICIAN: ____. REASON FOR CONSULTATION: COPD exacerbation. HISTORY OF PRESENT ILLNESS: Ms. Patricia is an 83-year-old female with history of COPD for many years. She was recently started on home oxygen therapy. She was feeling congested for the last 2 weeks or so. She has cough with a small amount of sputum production. Does not have any fever or chills. She has a lot of wheezing. No nausea or vomiting. She took a nebulizer treatment at home, did not get better. She was also using Brio. She presented to the hospital. She had a chest x-ray done, which shows that she has a right basilar infiltrate and pleural effusion. Her CBC shows WBC count 10.7, hemoglobin 12.5, hematocrit 36.6, MCV 97, platelet count 232. Sodium 136, potassium 3.7, chloride 100, CO2 27, BUN 15, creatinine 1.06. Blood gas on nasal cannula, pH 7.48, pCO2 of 34, pO2 66, bicarbonate 25, saturation 98%. PAST MEDICAL HISTORY: Significant for a history of COPD. She is oxygen dependent, hypertension, aortic stenosis, peripheral arterial disease, chronic kidney disease, partial right hip surgery, history of detached retina. MEDICATIONS: She is currently takin. Albuterol and Atrovent nebulizer treatment. 2. Norvasc 5 mg a day. 3. Aspirin 81 mg. 4. Lipitor 80 mg a day. 5. Tessalon 200 mg every 8 hours. 6. Symbicort 160/4.5 two puffs twice a day. 7. Doxycycline 100 mg every 12 hours. 8. Lovenox 40 mg a day. 9. Zetia 10 mg a day. 10. Flonase nasal spray. 11. Lasix 20 mg IV push. 12. Mucinex 600 mg twice a day. 13. Cozaar 50 mg a day. 14. Solu-Medrol 40 mg every 6 hours. 15. Lopressor 12.5 mg twice a day. 16. Protonix 40 mg a day. 17. Paxil 20 mg a day. 18. Zosyn 3.375 g every 8 hours. 19. Restoril 15 mg at night. 20. Spiriva once a day. 21. Detrol LA 2 mg a day. ALLERGIES: 1. CEPHALEXIN. 2. DIATRIZOATE. SOCIAL HISTORY: She is for 61 years. She has a history of smoking, which she quit many years ago. She takes a couple of drinks at nighttime. 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 FAMILY HISTORY: She had 2 children. REVIEW OF SYSTEMS: Normally, she is up, around and active. Weight is stable. No DVT or pulmonary embolism. No seizure, stroke or epilepsy. PHYSICAL EXAMINATION: GENERAL: Reveals an elderly female, mildly short of breath, not in any acute distress. VITAL SIGNS: Blood pressure 148/67, heart rate 70, respirations 16, temperature 98.1. HEENT: Pupils are equal and reactive to light. She had bilateral cataract surgery done. Oral mucosa and nasal mucosa normal. NECK: Supple. JVP not raised. CHEST: Quiet. She has expiratory rhonchi. HEART: S1, S2 normal. ABDOMEN: Benign. EXTREMITIES: No edema. IMPRESSION: 1. Chronic obstructive pulmonary disease with exacerbation. 2. Right lower lobe lung infiltrate. 3. Small pleural effusion. 4. Hypoxia. 5. Chronic kidney disease. 6. History of hip surgery. PLAN: I discussed with the patient and her will continue antibiotic aerosol treatment, albuterol and Atrovent, supplemental oxygen, and IV Solu-Medrol. Encouraged her to use Acapella and incentive spirometry. She is taking Lovenox 40 mg for deep venous thrombosis prophylaxis, Protonix 40 mg b.i.d. Further treatment will depend on the course in the hospital. Thank you, Dr. Ohara, for this consultation. MD LUZ Kaur/parveen/jody , 06:29 PM , 06:39 PM CINTHYA
[2018-12-02] MEDS: Temazepam 15 MG Capsule PO PRN (21:15)
[2018-12-03] MEDS: MethylPREDNISolone Sod Succinate Inj 40 MG/ML Vial IV.PUSH SCH ×4 (03:38→21:16)
[2018-12-03] MEDS: Piperacil/Tazo 3.375 GM Premix 3.375 GM/50 ML PIGGYBACK IV.SIG SCH ×2 (03:39→09:37)
[2018-12-03] MEDS: Senna/Docusate Sodium 8.6/50 MG Tablet PO SCH ×2 (09:35→21:17)
[2018-12-03] MEDS: Metoprolol Tartrate 25 MG Tablet PO SCH ×2 (09:35→21:16)
[2018-12-03] MEDS: amLODIPine 5 MG Tablet PO SCH (09:35)
[2018-12-03] MEDS: guaiFENesin 600 MG ER Tablet PO SCH ×2 (09:36→21:16)
[2018-12-03] MEDS: Tolterodine Tartrate LA 2 MG Capsule PO SCH (09:36)
[2018-12-03] MEDS: Ezetimibe 10 MG Tablet PO SCH (09:36)
[2018-12-03] MEDS: Tiotropium Bromide 18 MCG/ACT Inhaler INH SCH (09:39)
[2018-12-03] MEDS: Budesonide-Formoterol 160/4.5 MCG 6 GM Inhaler INH SCH ×2 (09:39→21:17)
--- NOTE | 2018-12-03 10:14 | P.PNIM ---
Subjective Interval history: Follow-up pneumonia, COPD exacerbation. Patient seen and examined today. Reports she continues to have SOB/ dyspnea especially on exertion. Denies pain and discomfort. Denies chest pain, palpitations, headaches, dizziness. Denies fevers, chills, n/v/d. Denies dysuria. Physical Exam Vital signs: Vital Signs 12/02/18 11:18 12/02/18 16:00 12/02/18 20:00 Temperature 98.1 F 98.0 F Pulse Rate 89 75 90 Respiratory Rate 18 16 17 Blood Pressure 148/67 H 113/59 L Pulse Oximetry 95 96 12/03/18 00:00 12/03/18 08:00 12/03/18 08:27 Temperature 98.0 F 98.1 F Pulse Rate 73 83 84 Respiratory Rate 16 16 16 Blood Pressure 137/83 171/81 H Pulse Oximetry 93 L 91 L 97 Intake & Output 12/02/18 12/03/18 12/03/18 18:59 06:59 18:59 Intake Total 675 / 675 630 / 630 Balance 675 / 675 630 / 630 Weight 45 kg Intake: IV 100 / 100 50 / 50 Zosyn 3.375 GM Premix 3.375 gm 100 / 100 50 / 50 In 50 ml @ 100 mls/hr IV.SIG Q8H LO Rx#:[id number] Oral 575 / 575 580 / 580 Other: # Voids 3 3 Date of Last Bowel Movement 12/02/18 # Bowel Movements 1 Narrative: GENERAL: This is a well-nourished, well-developed patient, in no apparent distress. SKIN: Warm and dry. HEENT: Normocephalic. Pupils equal round and reactive. Nose without bleeding. Airway patent. NECK: Trachea midline. CARDIOVASCULAR: Regular rate and rhythm without murmurs, gallops, or rubs. RESPIRATORY:No expiratory wheezes. Right base diminished. GASTROINTESTINAL: Abdomen soft, non-tender, nondistended. Bowel Sounds normoactive x4. MUSCULOSKELETAL: Extremities without clubbing, cyanosis, or edema. NEUROLOGICAL: Awake and alert. No focal neuro deficit. Moves all extremities. Normal speech. Results - Labs CBC & Chem 7: 12/02/18 04:24 12/03/18 14:31 Laboratory Results - last 24 hr 12/02/18 17:52 Nasal Screen MRSA (PCR) Negative Staph aureus (PCR) Negative Microbiology 11/30/18 16:15 Blood - Peripheral Aerobic Blood Culture - Preliminary No growth in 2 days 11/30/18 16:15 Blood - Peripheral Anaerobic Blood Culture - Preliminary No growth in 2 days 11/30/18 16:20 Blood - Peripheral Aerobic Blood Culture - Preliminary No growth in 2 days 11/30/18 16:20 Blood - Peripheral Anaerobic Blood Culture - Preliminary No growth in 2 days Assessment and Plan - Plan 83-year-old female with COPD on 2 L nasal cannula as needed at home presents with 2 days worsening shortness of breath and nonproductive cough. Pneumonia, community-acquired, acute COPD with exacerbation -Chest x-ray showed 1. New linear infiltrate in the right middle lobe compared to the prior exam. 2. There has been a mild increase in the parenchymal consolidation and effusion in the right lung base. 3. The left lung is grossly clear and stable compared to the prior study with either some pleural thickening versus a small left-sided effusion -History of prior pneumonia post hospitalization of her hip replacement last August. -Blood cultures no growth to date -Duo nebs scheduled and as needed, benzonatate, Mucinex -Solu-Medrol, switch over to p.o. prednisone taper dose when clinically improved -Continue fluticasone, tiotropium, patient reports she takes another medication, will start Symbicort for now -O2 nasal cannula to continue, O2 dependent with 20 L nasal cannula, keep O2 sat greater than 90% -MRSA nasal swab, will dc doxy if negative swab -Repeat chest x-ray showed Consolidation and effusion right base with some regression. Slight increase the amount of effusion on the left. Mild failure persist -Lasix 40 mg x1. Lasix daily. Review of chart showed echocardiogram done with preserved EF 55-60%. Normal LV. MVR. -Improved wheezing. -Negative MRSA PCR -DC Doxy, switch IV Zosyn p.o. azithromycin and Ceftin. Patient has allergies to cephalexin will monitor reaction. States not anaphylactic reaction. Benadryl PRN -Pulmonology consulted, appreciate recommendation HTN, uncontrolled HLD, PVD CKD 3 -Continue home medications Cozaar, ASA, Norvasc, metoprolol, Lipitor -Monitor BP trend DVT prop Lovenox Full Code Discussed Condition With: Patient, nursing Discharge Planning: DC when clinically improved, may need home health
[2018-12-03] MEDS ORDERED: Pharmacy Ordered Lab Info OTHER ONE ×2 (14:45→19:45)
[2018-12-03 15:09] LABS: Calcium 8.4 mg/dL (8.5-10.1); Carbon Dioxide 28.8 meq/L (21.0-32.0); Potassium 3.1 meq/L (3.5-5.1)
[2018-12-03] MEDS: Enoxaparin Inj 40 MG/0.4 ML Syringe SQ SCH (17:46)
--- NOTE | 2018-12-03 17:54 | P.PNPL ---
Subjective Interval history: 83 YOWF with COPD exac, Pn Breathing better no fever No Cough or sputum Physical Exam Vital signs: Vital Signs 12/02/18 20:00 12/03/18 00:00 12/03/18 08:00 Temperature 98.0 F 98.0 F 98.1 F Pulse Rate 90 73 83 Respiratory Rate 17 16 16 Blood Pressure 113/59 L 137/83 171/81 H Pulse Oximetry 96 93 L 91 L 12/03/18 08:27 12/03/18 09:36 12/03/18 12:00 Temperature 97.9 F Pulse Rate 84 79 Respiratory Rate 16 16 Blood Pressure 161/68 H Pulse Oximetry 97 93 L 90 L 12/03/18 13:39 Temperature Pulse Rate 73 Respiratory Rate 14 Blood Pressure Pulse Oximetry Intake & Output 12/02/18 12/03/18 12/03/18 18:59 06:59 18:59 Intake Total 675 / 675 630 / 630 50 / 50 Balance 675 / 675 630 / 630 50 / 50 Weight 45 kg Intake: IV 100 / 100 50 / 50 50 / 50 Zosyn 3.375 GM Premix 3.375 gm 100 / 100 50 / 50 50 / 50 In 50 ml @ 100 mls/hr IV.SIG Q8H LO Rx#:[id number] Oral 575 / 575 580 / 580 Other: # Voids 3 3 Date of Last Bowel Movement 12/02/18 # Bowel Movements 1 GENERAL: Elderly WF, NAD SKIN: Warm and dry. HEAD: Normocephalic. EYES: No scleral icterus. No injection or drainage. NECK: Supple, trachea midline. No JVD or lymphadenopathy. CARDIOVASCULAR: Regular rate and rhythm without murmurs, gallops, or rubs. RESPIRATORY: Breath sounds equal bilaterally. No accessory muscle use. GASTROINTESTINAL: Abdomen soft, non-tender, nondistended. MUSCULOSKELETAL: No cyanosis, or edema. BACK: Nontender without obvious deformity. No CVA tenderness. Assessment and Plan - Plan IMPRESSION: 1. Chronic obstructive pulmonary disease with exacerbation. 2. Right lower lobe lung infiltrate. 3. Small pleural effusion. 4. Hypoxia. 5. Chronic kidney disease. 6. History of hip surgery. PLAN: Cont Abx IV Solumedrol Supplement 02 Aerosol nebs OOB and ambulate SQ Lovenox DW pt and her at BS.
[2018-12-03] MEDS: Montelukast 10 MG Tablet PO SCH (21:16)
[2018-12-03] MEDS: Temazepam 15 MG Capsule PO PRN (21:16)
[2018-12-04] MEDS: MethylPREDNISolone Sod Succinate Inj 40 MG/ML Vial IV.PUSH SCH ×2 (03:55→09:03)
[2018-12-04] MEDS ORDERED: Metoprolol Tartrate 25 MG Tablet PO ONE (08:26)
[2018-12-04] MEDS: guaiFENesin 600 MG ER Tablet PO SCH ×2 (08:58→21:57)
[2018-12-04] MEDS: Ezetimibe 10 MG Tablet PO SCH (08:58)
[2018-12-04] MEDS: Senna/Docusate Sodium 8.6/50 MG Tablet PO SCH ×2 (08:59→21:57)
[2018-12-04] MEDS: Tolterodine Tartrate LA 2 MG Capsule PO SCH (08:59)
[2018-12-04] MEDS: amLODIPine 5 MG Tablet PO SCH (08:59)
[2018-12-04] MEDS: Budesonide-Formoterol 160/4.5 MCG 6 GM Inhaler INH SCH ×2 (09:00→21:57)
[2018-12-04] MEDS: Tiotropium Bromide 18 MCG/ACT Inhaler INH SCH (09:00)
[2018-12-04] MEDS ORDERED: Azithromycin 250 MG Tablet PO SCH (09:00)
--- NOTE | 2018-12-04 09:46 | P.DS ---
Date of admission: 12/02/18 09:37 Primary care physician: UNKNOWN Brief History from admission: 83-year-old female with COPD on 2 L nasal cannula as needed at home presents with 2 days worsening shortness of breath and nonproductive cough. Patient denies fever chest pain nausea vomiting diarrhea. She was admitted in August for COPD exacerbation. Patient was found to have consolidation and effusion in the right lung base and was treated with vancomycin and Zosyn and azithromycin for HCAP coverage due to recent hospitalization as well as IV Solu-Medrol.. Were asked for admission for further workup and management, patient states she is feeling better status post the oxygen and nebulizer treatments. PMhx: COPD, CKD 3, murmur, mild aortic stenosis, PVD, HTN, PSXhx: L CEA, partial hip arthroplasty right, repair of detached retina, SOChx: Denies tobacco, quit 1992, admits to 2 drinks of vodka a day, denies withdrawal symptoms, lives at home with , ambulates with walker due to unsteady gait. Fall in May with hip fracture FAMhx: Father of [place], mother of stroke DS: Summary - Time Spent with Patient Total time spent providing and/or coordinating discharge services: - Quality: VTE Deep Vein Thrombosis/Pulmonary Embolism Present on Admission: No Exam Vital signs: Vital Signs 12/03/18 12:00 12/03/18 13:39 12/03/18 16:00 Temperature 97.9 F 98.5 F Pulse Rate 79 73 87 Respiratory Rate 16 14 17 Blood Pressure 161/68 H 134/68 Pulse Oximetry 90 L 94 L 12/03/18 20:00 12/03/18 20:34 12/04/18 00:00 Temperature 97.8 F 98.0 F Pulse Rate 125 H 111 H 122 H Respiratory Rate 20 19 20 Blood Pressure 114/69 123/79 Pulse Oximetry 92 L 94 L 93 L 12/04/18 08:00 12/04/18 09:20 Temperature 98.3 F Pulse Rate 125 H 132 H Respiratory Rate 19 22 Blood Pressure 131/84 Pulse Oximetry 92 L 92 L Intake & Output 12/03/18 12/04/18 12/04/18 18:59 06:59 18:59 Intake Total 525 / 525 Balance 525 / 525 Weight 44.9 kg Intake: IV 50 / 50 Zosyn 3.375 GM Premix 3.375 gm 50 / 50 In 50 ml @ 100 mls/hr IV.SIG Q8H [facility] Rx#:[id number] Oral 475 / 475 Other: # Voids 4 2 Date of Last Bowel Movement 12/02/18 # Bowel Movements 2 Results Labs on day of discharge: Labs from last 24 hours 12/03/18 14:31 Sodium 134 L Potassium 3.1 L Chloride 94 L Carbon Dioxide 28.8 Anion Gap 11 BUN 24 H Creatinine 1.80 H Estimated GFR 27 L Random Glucose 252 H Calcium 8.4 L Preliminary micro results at discharge 11/30/18 16:15 Aerobic Blood Culture - Preliminary Blood - Peripheral No growth in 3 days Anaerobic Blood Culture - Preliminary No growth in 3 days 11/30/18 16:20 Aerobic Blood Culture - Preliminary Blood - Peripheral No growth in 3 days Anaerobic Blood Culture - Preliminary No growth in 3 days - Impressions ITS Impressions Chest X-Ray 12/02/18 00:00 CONCLUSION: Consolidation and effusion right base with some regression Slight increase the amount of effusion on the left. Mild failure persist Discharge Plan - Discharge Condition Condition: Stable - Physicians Team Primary Care Provider: UNKNOWN, Attending Provider: Diomedes Ohara Other Providers: Messi Bhatt MD
--- NOTE | 2018-12-04 09:55 | P.PNIM ---
Subjective Interval history: Follow-up pneumonia, COPD exacerbation. Patient seen and examined today. Reports shortness of breath has improved. States she is feeling a lot better. Continues to have cough, nonproductive. Denies pain and discomfort. Denies chest pain, palpitations, headaches, dizziness. Denies fevers, chills, n/v/d. Denies dysuria. Physical Exam Vital signs: Vital Signs 12/03/18 12:00 12/03/18 13:39 12/03/18 16:00 Temperature 97.9 F 98.5 F Pulse Rate 79 73 87 Respiratory Rate 16 14 17 Blood Pressure 161/68 H 134/68 Pulse Oximetry 90 L 94 L 12/03/18 20:00 12/03/18 20:34 12/04/18 00:00 Temperature 97.8 F 98.0 F Pulse Rate 125 H 111 H 122 H Respiratory Rate 20 19 20 Blood Pressure 114/69 123/79 Pulse Oximetry 92 L 94 L 93 L 12/04/18 08:00 12/04/18 09:20 Temperature 98.3 F Pulse Rate 125 H 132 H Respiratory Rate 19 22 Blood Pressure 131/84 Pulse Oximetry 92 L 92 L Intake & Output 12/03/18 12/04/18 12/04/18 18:59 06:59 18:59 Intake Total 525 / 525 Balance 525 / 525 Weight 44.9 kg Intake: IV 50 / 50 Zosyn 3.375 GM Premix 3.375 gm 50 / 50 In 50 ml @ 100 mls/hr IV.SIG Q8H [facility] Rx#:[id number] Oral 475 / 475 Other: # Voids 4 2 Date of Last Bowel Movement 12/02/18 # Bowel Movements 2 Narrative: GENERAL: This is a well-nourished, well-developed patient, in no apparent distress. SKIN: Warm and dry. HEENT: Normocephalic. Pupils equal round and reactive. Nose without bleeding. Airway patent. NECK: Trachea midline. CARDIOVASCULAR: Tachycardia without murmurs, gallops, or rubs. RESPIRATORY:No expiratory wheezes. Right base diminished. GASTROINTESTINAL: Abdomen soft, non-tender, nondistended. Bowel Sounds normoactive x4. MUSCULOSKELETAL: Extremities without clubbing, cyanosis, or edema. NEUROLOGICAL: Awake and alert. No focal neuro deficit. Moves all extremities. Normal speech. Results - Labs CBC & Chem 7: 12/02/18 04:24 12/04/18 13:44 Laboratory Results - last 24 hr 12/03/18 14:31 Sodium 134 L Potassium 3.1 L Chloride 94 L Carbon Dioxide 28.8 Anion Gap 11 BUN 24 H Creatinine 1.80 H Estimated GFR 27 L Random Glucose 252 H Calcium 8.4 L Microbiology 11/30/18 16:15 Blood - Peripheral Aerobic Blood Culture - Preliminary No growth in 3 days 11/30/18 16:15 Blood - Peripheral Anaerobic Blood Culture - Preliminary No growth in 3 days 11/30/18 16:20 Blood - Peripheral Aerobic Blood Culture - Preliminary No growth in 3 days 11/30/18 16:20 Blood - Peripheral Anaerobic Blood Culture - Preliminary No growth in 3 days Assessment and Plan - Plan 83-year-old female with COPD on 2 L nasal cannula as needed at home presents with 2 days worsening shortness of breath and nonproductive cough. Acute kidney injury, on chronic kidney disease -Poss secondary to antibiotic use, steroid use -Redose ABX, switch PO prednisone -IV fluid hydration, monitor for fluid overload -Enc PO fluid hydration -US renal bladder -BMP in PM, if trends down will plan DC with home health care, follow-up BMP in 1 week. Follow up with logistics service representative. tachycardia -mediation related, on albuterol scheduled, poss dehydration increase diureses -IVF -Increase metoprolol -EKG ordered, SVT 131, QTC >450. Hydrate and monitor for now. -Denies chest pain, discomfort. Pneumonia, community-acquired, acute COPD with exacerbation -Chest x-ray showed 1. New linear infiltrate in the right middle lobe compared to the prior exam. 2. There has been a mild increase in the parenchymal consolidation and effusion in the right lung base. 3. The left lung is grossly clear and stable compared to the prior study with either some pleural thickening versus a small left-sided effusion -History of prior pneumonia post hospitalization of her hip replacement last August. -Blood cultures no growth to date -Duo nebs scheduled and as needed, benzonatate, Mucinex -Solu-Medrol, switch over to p.o. prednisone taper dose when clinically improved -Continue fluticasone, tiotropium, patient reports she takes another medication, will start Symbicort for now -O2 nasal cannula to continue, O2 dependent with 20 L nasal cannula, keep O2 sat greater than 90% -MRSA nasal swab, will dc doxy if negative swab -Repeat chest x-ray showed Consolidation and effusion right base with some regression. Slight increase the amount of effusion on the left. Mild failure persist -Lasix 40 mg x1. Lasix daily. Review of chart showed echocardiogram done with preserved EF 55-60%. Normal LV. MVR. -Improved wheezing. -Negative MRSA PCR -DC Doxy, switch IV Zosyn p.o. azithromycin and Ceftin. Patient has allergies to cephalexin will monitor reaction. States not anaphylactic reaction. Benadryl PRN -Pulmonology consulted, appreciate recommendation -No adverse reaction with Ceftin. Switch to PO Prednisone HTN, uncontrolled HLD, PVD CKD 3 -Continue home medications Cozaar, ASA, Norvasc, metoprolol, Lipitor -Monitor BP trend DVT prop Lovenox Full Code Discussed Condition With: Patient, nurse Discharge Planning: DC when clinically improved, poss brian with home health
--- NOTE | 2018-12-04 09:59 | P.DCO ---
- Physical Therapy Order: Evaluate and treat - Home Health Nursing Order: Signs/symptoms of disease process, Oxygen administration education, Medication education-adverse effect, Nursing assessment with vital signs - Case Management Consult Case Management Consult-Home Health: Yes - Certification I have seen patient Keke Patricia on 12/04/18. My clinical findings support the need for the requested home health care services because: Patient has SOB, Deconditioned with increased weakness, High risk of falls, Infection with risk of complications I certify that my clinical findings support that this patient is homebound because: Hx COPD - exertion dyspnea/weakness, Unsteady gait/balance
[2018-12-04] MEDS ORDERED: Sod Chloride 0.9% Inj 1,000 ML IV.CONT SCH ×2 (10:00→15:57)
[2018-12-04] MEDS: predniSONE 20 MG Tablet PO SCH ×2 (10:43→21:56)
--- NOTE | 2018-12-04 12:01 | US ---
EXAM DATE: 12/04/2018 11:36 AM EST AGE/SEX: 83 years / Female INDICATIONS: Increased BUN/Creatinine. CLINICAL DATA: This is the patient's subsequent encounter. Patient reports that signs and symptoms h ave been present for 1 day and indicates a pain score of 0/10. MEDICAL/SURGICAL HISTORY: Hypertension. Chronic obstructive pulmonary disease. Peripheral vas cular disease. Chronic kidney disease. Rectal prolapse. Hyperlipidemia. Cataract fragments post surg reanna. Hearing loss. Heart murmur. Repair detached retina. Appendectomy. Tubal ligation. Tonsillecto my. Carpal tunnel release. Zhang's neuroma excision. Right hip surgery. COMPARISON: [facility] [place]/RENAL/BLAD[place], 08/21/2016. . MEASUREMENTS: Right Kidney:__10.2 x 5.0 x 5.1 cm Left Kidney:__8.7 x 4.6 x 3.8 cm FINDINGS: Right Kidney: Increased echogenicity. No mass or hydronephrosis. Slight prominence of the right renal pelvis. Left Kidney: Suboptimally visualized due to limited acoustic window. Increased echogenicity. No mass or hydronephrosis. Bladder: Within normal limits given the degree of distension. Other: Incidental note of bilateral pleural effusions. CONCLUSION: 1. Slight prominence of the right renal pelvis without definitive evidence for hydronephrosis. This finding is nonspecific and of uncertain clinical significance. 2. Echogenic kidneys consistent with medical renal disease. 3. Bilateral pleural effusions. Electronically signed by: Franky Rodriguez MD Board Certified Radiologist 12/04/2018 11:59 AM EST
[2018-12-04] MEDS: Azithromycin 250 MG Tablet PO SCH (12:53)
[2018-12-04 15:40] LABS: Calcium 8.1 mg/dL (8.5-10.1); Carbon Dioxide 31.5 meq/L (21.0-32.0)
[2018-12-04 15:42] LABS: Potassium 2.9 meq/L (3.5-5.1)
--- NOTE | 2018-12-04 17:48 | ECG ---
Date Performed: 12/04/2018 Time Performed: 10:40:45 PTAGE: 83 years EKG: ATRIAL FLUTTER/TACHYCARDIA WITH RAPID VENTRICULAR RESPONSE POSSIBLE ANTERIOR MYOCARDIAL INF ARCTION , PROBABLY OLD When compared to previous racing, likely atrial flutter/ Tachycardia with vent ricular response has repaced Sinus rhythm . ABNORMAL RHYTHM ECG PREVIOUS TRACING : 09/18/2018 18.03 DOCTOR: Herberth Stephens Interpretating Date/Time 12/04/2018 17:47:32
[2018-12-04] MEDS ORDERED: Enoxaparin Inj 30 MG/0.3 ML Syringe SQ SCH (18:00)
--- NOTE | 2018-12-04 19:08 | P.PNPL ---
Subjective Interval history: 83 YOWF with COPD exac, Pn Breathing better no fever No Cough or sputum Creatinine increased Physical Exam Vital signs: Vital Signs 12/03/18 20:00 12/03/18 20:34 12/04/18 00:00 Temperature 97.8 F 98.0 F Pulse Rate 125 H 111 H 122 H Respiratory Rate 20 19 20 Blood Pressure 114/69 123/79 Pulse Oximetry 92 L 94 L 93 L 12/04/18 08:00 12/04/18 09:20 12/04/18 12:00 Temperature 98.3 F 97.8 F Pulse Rate 125 H 132 H 65 Respiratory Rate 19 22 19 Blood Pressure 131/84 117/73 Pulse Oximetry 92 L 92 L 97 12/04/18 13:05 12/04/18 16:00 Temperature 98.5 F Pulse Rate 66 80 Respiratory Rate 20 19 Blood Pressure 120/76 Pulse Oximetry 95 Intake & Output 12/04/18 12/04/18 12/05/18 06:59 18:59 06:59 Intake Total 2200 / 2200 Balance 2200 / 2200 Weight 44.9 kg Intake: IV 1000 / 1000 NS Inj 1,000 ML @ 250 mls/hr IV 1000 / 1000 .CONT .Q4H [facility] Rx#:[id number] Oral 1200 / 1200 Other: # Voids 2 2 Date of Last Bowel Movement 12/02/18 # Bowel Movements 1 GENERAL: Elderly WF, NAD SKIN: Warm and dry. HEAD: Normocephalic. EYES: No scleral icterus. No injection or drainage. NECK: Supple, trachea midline. No JVD or lymphadenopathy. CARDIOVASCULAR: Regular rate and rhythm without murmurs, gallops, or rubs. RESPIRATORY: Breath sounds equal bilaterally. No accessory muscle use. GASTROINTESTINAL: Abdomen soft, non-tender, nondistended. MUSCULOSKELETAL: No cyanosis, or edema. BACK: Nontender without obvious deformity. No CVA tenderness. Assessment and Plan - Plan IMPRESSION: 1. Chronic obstructive pulmonary disease with exacerbation. 2. Right lower lobe lung infiltrate. 3. Small pleural effusion. 4. Hypoxia. 5. Chronic kidney disease. 6. History of hip surgery. PLAN: Cont Abx DC Solumedrol Prednisone 20 mg bid Supplement 02 Aerosol nebs OOB and ambulate SQ Lovenox Monitor renal functions.
[2018-12-04] MEDS: Metoprolol Tartrate 25 MG Tablet PO SCH (21:57)
[2018-12-04] MEDS: Montelukast 10 MG Tablet PO SCH (21:57)
[2018-12-04] MEDS: Temazepam 15 MG Capsule PO PRN (22:04)
[2018-12-05 01:35] VITALS: RESP 18; TEMP 97.6; O2SAT 94
[2018-12-05 05:13] LABS: Calcium 8.5 mg/dL (8.5-10.1); Potassium 3.8 meq/L (3.5-5.1)
[2018-12-05 08:46] VITALS: BP 141/91; PULSE 124
[2018-12-05] MEDS: Tolterodine Tartrate LA 2 MG Capsule PO SCH (09:01)
[2018-12-05] MEDS: Azithromycin 250 MG Tablet PO SCH (09:01)
[2018-12-05] MEDS: predniSONE 20 MG Tablet PO SCH (09:02)
[2018-12-05] MEDS: amLODIPine 5 MG Tablet PO SCH (09:02)
[2018-12-05] MEDS: Ezetimibe 10 MG Tablet PO SCH (09:02)
[2018-12-05] MEDS: Metoprolol Tartrate 25 MG Tablet PO SCH (09:02)
[2018-12-05] MEDS: guaiFENesin 600 MG ER Tablet PO SCH (09:02)
[2018-12-05] MEDS: Senna/Docusate Sodium 8.6/50 MG Tablet PO SCH (09:03)
[2018-12-05] MEDS: Tiotropium Bromide 18 MCG/ACT Inhaler INH SCH (09:03)
[2018-12-05] MEDS: Budesonide-Formoterol 160/4.5 MCG 6 GM Inhaler INH SCH (09:05)
--- NOTE | 2018-12-05 09:34 | P.DS ---
Date of admission: 12/02/18 09:37 Primary care physician: UNKNOWN Attending physician on discharge: Diomedes Ohara Anticipated date of discharge: 12/05/18 Brief History from admission: 83-year-old female with COPD on 2 L nasal cannula as needed at home presents with 2 days worsening shortness of breath and nonproductive cough. Patient denies fever chest pain nausea vomiting diarrhea. She was admitted in August for COPD exacerbation. Patient was found to have consolidation and effusion in the right lung base and was treated with vancomycin and Zosyn and azithromycin for HCAP coverage due to recent hospitalization as well as IV Solu-Medrol.. Were asked for admission for further workup and management, patient states she is feeling better status post the oxygen and nebulizer treatments. PMhx: COPD, CKD 3, murmur, mild aortic stenosis, PVD, HTN, PSXhx: L CEA, partial hip arthroplasty right, repair of detached retina, SOChx: Denies tobacco, quit 1992, admits to 2 drinks of vodka a day, denies withdrawal symptoms, lives at home with , ambulates with walker due to unsteady gait. Fall in May with hip fracture FAMhx: Father of [place], mother of stroke Patient update on day of discharge: Follow-up visit COPD exacerbation, hospital-acquired pneumonia, acute kidney injury on chronic kidney disease. Patient seen and examined today. Reports she is doing well. States she is feeling a lot better. Continues to be an O2 nasal cannula. Able to finish sentences without shortness of breath noted. Denies pain and discomfort. Denies chest pain, palpitations, headaches, dizziness. Denies fevers, chills, n/v/d. Denies dysuria. DS: Diagnosis - Discharge Diagnosis (1) COPD with exacerbation Status: Acute (2) Pneumonia Status: Acute (3) Hypoxia Status: Acute (4) HCAP (healthcare-associated pneumonia) Status: Acute DS: Medications - Discharge Medications Prescriptions: azithromycin 250 mg PO DAILY #3 tab benzonatate [Tessalon Perles] 200 mg PO Q8H PRN #20 cap PRN Reason: Cough budesonide-formoterol [Symbicort] 2 puff INH BID #1 g cefuroxime axetil 500 mg PO Q24H 7 Days #7 tab guaifenesin [Mucinex] 600 mg PO BID #14 tab ipratropium-albuterol 1 amp NEB Q6HR WHILE AWAKE NEB 30 Days ml montelukast 10 mg PO HS #30 tab prednisone 20 mg PO BID 6 Days #12 tab tiotropium bromide [Spiriva with HandiHaler] 18 mcg INH DAILY 30 Days #30 inh DS: Summary Hospital Course: 83-year-old female with COPD on 2 L nasal cannula as needed at home presents with 2 days worsening shortness of breath and nonproductive cough. Patient found to have pneumonia, possibly hospital associated versus community-acquired , COPD exacerbation. Chest x-ray showed 1. New linear infiltrate in the right middle lobe compared to the prior exam. 2. There has been a mild increase in the parenchymal consolidation and effusion in the right lung base. 3. The left lung is grossly clear and stable compared to the prior study with either some pleural thickening versus a small left-sided effusion. She had a history of pneumonia post hospitalization of her hip replacement last August. Blood cultures no growth today. Patient was started on DuoNeb scheduled and as needed , albuterol, benzonatate, Mucinex. She was also given Solu-Medrol IV and will switch over to p.o. prednisone twice daily. She will need to taper prednisone follow-up with crimper operator. Patient was also started on tiotropium, Symbicort , continued her fluticasone from home. She is O2 dependent 2 L nasal cannula at home. Her MRSA nasal swab has been negative. Patient was treated with IV vancomycin, IV Zosyn and it was switched over to Zosyn and doxycycline which was eventually changed to azithromycin and Ceftin. Patient has allergies to cephalexin however did not show any reaction to Ceftin use. Patient has repeat chest x-ray which showed consolidation and effusion in the right base with some regression. Site increase the amount of effusion on the left. Mild failure persists. She was given IV Lasix. Found to have acute kidney injury on chronic kidney disease possibly secondary to antibiotic use, steroid use, diuretic use. Antibiotic has been re-dose. IV fluid gentle hydration has been provided to the patient. US renal bladder has been done which 1. Slight prominence of the right renal pelvis without definitive evidence for hydronephrosis. This finding is nonspecific and of uncertain clinical significance. 2. Echogenic kidneys consistent with medical renal disease. 3. Bilateral pleural effusions. She follows with Dr. Wilburn in the outpatient and will continue to follow. Her creatinine has improved. She will need a repeat BMP in 1-2 weeks and also a repeat x-ray in 1-2 weeks. Episodes of tachycardia possibly related to medication use patient on scheduled duo nebs, albuterol use and possible dehydration with increased diuresis. After gentle IV fluid hydration patient's heart rate has returned to normal. Vital signs trend showing tachycardia every nebulizer use. Her chronic conditions such as high blood pressure, PVD has been treated with Cozaar, ASA, Norvasc, metoprolol, Lipitor. She will continue to follow-up with PCP and outpatient. Patient has met maximal benefits of hospitalization. Clinically stable for discharge with home health care. Medications has been explained discussed with patient. Verbalized understanding. Follow-ups have also been discussed with patient including labs and diagnostic studies. Verbalized understanding. - Time Spent with Patient Total time spent providing and/or coordinating discharge services: Greater than 30 minutes - Quality: VTE Deep Vein Thrombosis/Pulmonary Embolism Present on Admission: No Exam Vital signs: Vital Signs 12/04/18 12:00 12/04/18 13:05 12/04/18 16:00 Temperature 97.8 F 98.5 F Pulse Rate 65 66 80 Respiratory Rate 19 20 19 Blood Pressure 117/73 120/76 Pulse Oximetry 97 95 12/04/18 20:00 12/05/18 00:00 12/05/18 08:00 Temperature 97.3 F L 97.6 F 97.6 F Pulse Rate 115 H 83 124 H Respiratory Rate 20 18 18 Blood Pressure 129/62 113/66 141/91 H Pulse Oximetry 93 L 94 L 94 L Intake & Output 12/04/18 12/05/18 12/05/18 18:59 06:59 18:59 Intake Total 2200 / 2200 1000 / 1000 Balance 2200 / 2200 1000 / 1000 Weight 46.3 kg Intake: IV 1000 / 1000 1000 / 1000 NS Inj 1,000 ML @ 75 mls/hr IV. 1000 / 1000 1000 / 1000 CONT .[id number] [facility] Rx#:[id number] Oral 1200 / 1200 Other: # Voids 2 3 Date of Last Bowel Movement 12/03/18 12/05/18 # Bowel Movements 1 Narrative: GENERAL: This is a well-nourished, well-developed patient, in no apparent distress. SKIN: Warm and dry. HEENT: Normocephalic. Pupils equal round and reactive. Nose without bleeding. Airway patent. NECK: Trachea midline. CARDIOVASCULAR: Tachycardia without murmurs, gallops, or rubs. RESPIRATORY:No expiratory wheezes. Right base diminished. GASTROINTESTINAL: Abdomen soft, non-tender, nondistended. Bowel Sounds normoactive x4. MUSCULOSKELETAL: Extremities without clubbing, cyanosis, or edema. NEUROLOGICAL: Awake and alert. No focal neuro deficit. Moves all extremities. Normal speech. Results Procedures completed during hospitalization: None Labs on day of discharge: Labs from last 24 hours 12/05/18 12/04/18 03:48 13:44 Sodium 137 132 L Potassium 3.8 D 2.9 L* Chloride 99 D 91 L Carbon Dioxide 29.0 31.5 Anion Gap 9 10 BUN 31 H 28 H Creatinine 1.17 H 1.48 H Estimated GFR 44 L 34 L Random Glucose 168 H 233 H Calcium 8.5 8.1 L Preliminary micro results at discharge 11/30/18 16:15 Aerobic Blood Culture - Preliminary Blood - Peripheral No growth in 4 days Anaerobic Blood Culture - Preliminary No growth in 4 days 11/30/18 16:20 Aerobic Blood Culture - Preliminary Blood - Peripheral No growth in 4 days Anaerobic Blood Culture - Preliminary No growth in 4 days - Impressions ITS Impressions Chest X-Ray 12/02/18 00:00 CONCLUSION: Consolidation and effusion right base with some regression Slight increase the amount of effusion on the left. Mild failure persist Abdomen/Bladder Ultrasound 12/04/18 00:00 CONCLUSION: 1. Slight prominence of the right renal pelvis without definitive evidence for hydronephrosis. This finding is nonspecific and of uncertain clinical significance. 2. Echogenic kidneys consistent with medical renal disease. 3. Bilateral pleural effusions. Discharge Plan - Discharge Disposition Patient Disposition: /Home Health Service - Discharge Condition Condition: Stable - Discharge Order Discharge Orders: Discharge Order (Routine); Ordered 12/05/18 Ordered By: Kristin Li - Physicians Team Primary Care Provider: UNKNOWN, Attending Provider: Diomedes Ohara Other Providers: Messi Bhatt MD
== END 2018-12-05 12:23 | disposition home health service (06) | DRG 190 ==
LOC: NEPE 15:40 → INTOOBSV 18:06 → NEDA 18:06 → N07 21:16
PROVIDERS: ADMIT Hospitalist; ATTEND Hospitalist
CPT/HCPCS: 36600; 71010; 71020; 71045; 71046; 76775; 76937; 80048; 80053; 82550; 82805; 83520; 83605; 83735; 83880; 84484; 85025; 85610; 85730; 87040; 87640; 87641; 93005; 94150; 94640; 94664; 94665; 96365; 96366; 97116; 97162; 99285; G0378; G8987; G8988; J0456; J1650; J1940; J2543; J2920; J3370; J7030; J7040; J7050; J7506; J7512